=== PATIENT | male | born 1945 | race Caucasian/White ===

== ENCOUNTER 2017-11-02 14:38 | Inpatient (IN) | payer MEDICARE, OTHER ==
[~2017-11-02] VITALS: Ht 190.5 cm; Wt 106.6 kg
[~2017-11-02 14:38] MED LIST: ASPI325T70 PO; CLOP75TA PO; Hydrocodone/Acetaminophen PO; LOVA20TA2 PO; METO-269 PO; OMEG300C PO; RANI300C PO; SOTA80TA20 PO
[2017-11-02] MEDS ORDERED: IV NORMAL SALINE 1000ML BAG 1,000 ML IV ONE (15:30)
[2017-11-02] MEDS ORDERED: ONDANSETRON PF 4 MG/2 ML VIAL. IV ONE (15:45)
[2017-11-02] MEDS ORDERED: fentaNYL PF VIAL 100 MCG/2 ML VIAL IV ONE (15:45)
[2017-11-02] MEDS ORDERED: CONTRAST GIVEN MC PRN (15:45)
[2017-11-02] MEDS ORDERED: IOHEXOL 300 MG/ML 100ML VIAL. IV ONE (16:15)
--- NOTE | 2017-11-02 16:19 | PHYS DOC ---
Past Medical History Past Medical History: CAD, Cancer, GERD, High Cholesterol, Hypertension, Other Additional Past Medical Histor: LYMPHOMA, SITIS INVERSUS Past Surgical History: Cancer Surgery, Coronary Bypass Surgery, Pacemaker Additional Past Surgical Histo: HEART CATH (SEVERAL) STENTS X'S 3, VENTERAL HERNIA, Alcohol Use: None Drug Use: None Adult General Chief Complaint Chief Complaint: ABDOMINAL PAIN HPI HPI Patient is a 72 year old M who presents with abdominal pain with history of small bowel obstruction. Patient had multiple surgeries by Dr. Clayton and has a previous history of small bowel obstructions secondary to adhesions. Patient states that this morning he developed abdominal pain with nausea and vomiting and has not had a bowel movement in over 2 days. Patient complains of abdominal pain mostly in the upper quadrants. Patient denies any fevers. Patient states he has been sweating more this morning. Patient denies any chest pain. Patient no other complaints. Review of Systems Review of Systems GEN: Denies fevers, chills, sweats HEENT: Denies blurred vision, sore throat CV: Denies chest pain RESP: Denies shortness of air, cough GI: Abdominal pain with nausea NEURO: Denies confusion, dizziness MSK: Denies weakness, joint pain/swelling All other systems were reviewed and found to be within normal limits, except as documented in this note. Current Medications Current Medications Current Medications Medications (Trade) Dose Ordered Sig/Rosemary Start Time Stop Time Status Last Admin Dose Admin Fentanyl Citrate (Fentanyl 2ml Vial) 50 mcg PRN Q1HR PRN 11/02/17 18:45 11/03/17 18:44 Info (Do NOT chart on this entry -- for MONITORING) 1 each PRN DAILY PRN 11/02/17 15:45 11/04/17 15:44 Iohexol (Omnipaque 300 Mg/ml) 75 ml 1X ONCE 11/02/17 16:15 11/02/17 16:16 DC Ondansetron HCl (Zofran) 4 mg PRN Q8HRS PRN 11/02/17 18:45 11/03/17 18:44 Sodium Chloride 1,000 ml @ 125 mls/hr Q8H 11/02/17 18:32 11/03/17 18:31 Allergies Allergies Allergies Coded Allergies Type Severity Reaction Last Updated Verified meperidine HCl Allergy Intermediate 08/01/14 Yes Physical Exam Physical Exam GEN.: Mild distress. Alert and oriented. HEENT: Head is normocephalic, atraumatic NECK: Supple. LUNGS: CTAB. HEART: RRR, S1, S2 present. Peripheral pulses intact ABDOMEN: Soft, generalized abdominal tenderness, no rebound tenderness, no abdominal distention. Hypoactive bowel sounds in all 4 quadrants EXTREMITIES: Without any cyanosis. NEUROLOGIC: Normal speech, normal tone PSYCHIATRIC: Normal affect, normal mood. SKIN: No ulcerations Current Patient Data Vital Signs Vital Signs Date Time Temp Pulse Resp B/P (MAP) Pulse Ox O2 Delivery O2 Flow Rate FiO2 11/02/17 17:45 59 159/94 (115) Room Air 11/02/17 17:20 96 11/02/17 16:45 15 11/02/17 14:40 97.6 97.6 Lab Values Laboratory Tests Test 11/02/17 16:16 11/02/17 16:19 11/02/17 17:45 White Blood Count 13.7 x10^3/uL (4.0-11.0) H Red Blood Count 5.63 x10^6/uL (4.30-5.70) Hemoglobin 16.9 g/dL (13.0-17.5) Hematocrit 51.9 % (39.0-53.0) Mean Corpuscular Volume 92 fL (79-100) Mean Corpuscular Hemoglobin 30 pg (25-35) Mean Corpuscular Hemoglobin Concent 33 g/dL (31-37) Red Cell Distribution Width 14.0 % (11.5-14.5) Platelet Count 143 x10^3/uL (140-400) Neutrophils (%) (Auto) 84 % (31-73) H Lymphocytes (%) (Auto) 8 % (24-48) L Monocytes (%) (Auto) 7 % (0-9) Eosinophils (%) (Auto) 1 % (0-3) Basophils (%) (Auto) 1 % (0-3) Neutrophils # (Auto) 11.6 x10^3uL (1.8-7.7) H Lymphocytes # (Auto) 1.1 x10^3/uL (1.0-4.8) Monocytes # (Auto) 0.9 x10^3/uL (0.0-1.1) Eosinophils # (Auto) 0.1 x10^3/uL (0.0-0.7) Basophils # (Auto) 0.1 x10^3/uL (0.0-0.2) Sodium Level 141 mmol/L (136-145) Potassium Level 5.1 mmol/L (3.5-5.1) Chloride Level 103 mmol/L (98-107) Carbon Dioxide Level 27 mmol/L (21-32) Anion Gap 11 (6-14) Blood Urea Nitrogen 23 mg/dL (8-26) Creatinine 1.6 mg/dL (0.7-1.3) H Estimated GFR (Cockcroft-Gault) 42.5 BUN/Creatinine Ratio 14 (6-20) Glucose Level 117 mg/dL (70-99) H Calcium Level 8.7 mg/dL (8.5-10.1) Total Bilirubin 0.7 mg/dL (0.2-1.0) Aspartate Amino Transferase (AST) 25 U/L (15-37) Alanine Aminotransferase (ALT) 25 U/L (16-63) Alkaline Phosphatase 59 U/L (46-116) Total Protein 7.9 g/dL (6.4-8.2) Albumin 4.0 g/dL (3.4-5.0) Albumin/Globulin Ratio 1.0 (1.0-1.7) Lipase 158 U/L (73-393) Lactic Acid Level 1.2 mmol/L (0.4-2.0) Urine Collection Type Unknown Urine Color Yellow Urine Clarity Clear Urine pH 6.0 Urine Specific [place] 1.025 Urine Protein Negative mg/dL (NEG-TRACE) Urine Glucose (UA) Negative mg/dL (NEG) Urine Ketones (Stick) Trace mg/dL (NEG) Urine Blood Negative (NEG) Urine Nitrite Negative (NEG) Urine Bilirubin Negative (NEG) Urine Urobilinogen Dipstick 0.2 mg/dL (0.2 mg/dL) Urine Leukocyte Esterase Negative (NEG) Urine RBC 0 /HPF (0-2) Urine WBC 0 /HPF (0-4) Urine Squamous Epithelial Cells Few /LPF Urine Bacteria 0 /HPF (0-FEW) Urine Mucus Mod /LPF Laboratory Tests 11/02/17 16:16 Laboratory Tests 11/02/17 16:16 EKG EKG [] Radiology/Procedures Radiology/Procedures CT: Impression: 1. Overall findings are concerning for small bowel obstruction with transition of the caliber in the left abdomen. There is mild nonorganized fluid adjacent to the loops of small bowel. 2. There is cholelithiasis. 3. 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 4. There are a couple of small fat-containing ventral hernias, no bowel.[] Course & Med Decision Making Course & Med Decision Making Pertinent Labs and Imaging studies reviewed. (See chart for details) ED course: Patient was seen and examined emergency room abdominal workup was ordered along with a CT scan of abdomen and pelvis Patient was updated on CT findings for an acute small bowel obstruction and plan to admit for further evaluation and management 1820: Discussed CC/HP/PMH with Dr. Monge and recommends admit to surgery on consult NG tube was attempted to be placed by ER nurse however was unsuccessful and patient has refused to continue trying MDM: After reviewing the chart, CC/HPI/PMH, physical exam, [lab results], [ radiological results], I believe the patient has an acute small bowel obstruction needing admission to the hospital for further evaluation and management. [] Dragon Disclaimer Dragon Disclaimer This electronic medical record was generated, in whole or in part, using a voice recognition dictation system. Departure Departure Impression: Primary Impression: SBO (small bowel obstruction) Disposition: ADMITTED INPATIENT Admitting Physician: Other (Dr. Monge) Condition: STABLE Referrals: SUSAN BEAN Jr, MD (PCP) KAJAL HOLT DO Nov 02, 2017 16:19
[2017-11-02 16:27] LABS: BASO # 0.1 x10^3/uL (0.0-0.2); BASO % 1 % (0-3); EOS % 1 % (0-3); HEMATOCRIT 51.9 % (39.0-53.0); HEMOGLOBIN 16.9 g/dL (13.0-17.5); LYMPH # 1.1 x10^3/uL (1.0-4.8); LYMPH % 8 % (24-48); MEAN CORPUSCULAR HEMOGLOBIN 30 pg (25-35); MEAN CORPUSCULAR HGB CONC 33 g/dL (31-37); MEAN CORPUSCULAR VOLUME 92 fL (79-100); MONO % 7 % (0-9); NEUT % 84 % (31-73); PLATELET COUNT 143 x10^3/uL (140-400); RED BLOOD COUNT 5.63 x10^6/uL (4.30-5.70); WHITE BLOOD COUNT 13.7 x10^3/uL (4.0-11.0)
[2017-11-02 16:40] LABS: CALCIUM 8.7 mg/dL (8.5-10.1); CREATININE 1.6 mg/dL (0.7-1.3); GFR 42.5; POTASSIUM 5.1 mmol/L (3.5-5.1)
[2017-11-02 16:46] LABS: TOTAL BILIRUBIN 0.7 mg/dL (0.2-1.0); TOTAL PROTEIN 7.9 g/dL (6.4-8.2)
--- NOTE | 2017-11-02 17:22 | RAD ---
CT Abdomen and Pelvis without contrast History: Abdominal pain Technique: Noncontrast CT imaging was performed of the abdomen and pelvis. Multiplanar images are reviewed.: One or more of the following individualized dose reduction techniques were utilized for this examination: 1. Automated exposure control 2. Adjustment of the mA and/or kV according to patient size 3. Use of iterative reconstruction technique. Comparison: July 06, 2016 Findings: There is again sinus inversus of the abdomen. There is again mild dilatation of the infrarenal abdominal aorta up to 3.3 cm. There is no abnormality limited visualized lung bases. There is likely sinus inversus of heart is seen previously. There is no hydronephrosis. There is no new obvious focal abnormality of the pancreas, spleen, liver. There is cholelithiasis. Accurate evaluation of bowel is somewhat limited without oral contrast. However there is small bowel dilatation with some fecalization and probable small bowel thickening such as in the pelvis. There are air-fluid levels present. Maximal caliber is on the order of 3.6 cm. The colon is not dilated. There is suggestion of a transition point of the caliber of the small bowel in the left abdomen near suture. No free air is identified. No focal drainable fluid collection is identified. There is some hazy density of the mesentery adjacent to the distended loops of small bowel, minimal nonorganized fluid. There is more advanced degenerative disc disease L4-5 and L5-S1 with spondylosis at the same levels. There is small fat-containing right ventral hernia at, no bowel. There is another small fat-containing hernia to the left of the midline anteriorly. Impression: 1. Overall findings are concerning for small bowel obstruction with transition of the caliber in the left abdomen. There is mild nonorganized fluid adjacent to the loops of small bowel. 2. There is cholelithiasis. 3. 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 4. There are a couple of small fat-containing ventral hernias, no bowel. Electronically signed by: Gilberto Goldberg MD (11/02/2017 5:19 PM) [id number]
[2017-11-02 17:54] LABS: BILIRUBIN,URINE NEGATIVE (NEG); GLUCOSE,URINE NEGATIVE (NEG); NITRITE,URINE NEGATIVE (NEG); PROTEIN,URINE NEGATIVE (NEG-TRACE); UROBILINOGEN,URINE 0.2 mg/dL (0.2 mg/dL)
[2017-11-02 18:09] LABS: BACTERIA,URINE 0 /HPF (0-FEW); RBC,URINE 0 /HPF (0-2); SQUAMOUS EPITHELIAL CELL,UR FEW /LPF; WBC,URINE 0 /HPF (0-4)
[2017-11-02] MEDS: IV NORMAL SALINE 1000ML BAG 1,000 ML IV SCH (18:32)
[2017-11-02] MEDS ORDERED: fentaNYL PF VIAL 100 MCG/2 ML VIAL IV PRN (18:45)
[2017-11-02] MEDS ORDERED: ONDANSETRON PF 4 MG/2 ML VIAL. IV PRN (18:45)
[2017-11-02 20:34] VITALS: BP 140/85
[2017-11-02] MEDS ORDERED: FAMOTIDINE 20 MG/2 ML VIAL IVP SCH (21:30)
[2017-11-02] MEDS: FAMOTIDINE 20 MG/2 ML VIAL IVP SCH (21:35)
[2017-11-02] MEDS ORDERED: MORPHINE SULFATE 2 MG/ML DISP.SYRIN. IV PRN (22:00)
[2017-11-02] MEDS ORDERED: LABETALOL 20 MG/4 ML DISP.SYRIN. IVP SCH (22:15)
--- NOTE | 2017-11-02 22:29 | HP ---
ADMIT DATE: 11/02/2017 CHIEF COMPLAINT: Abdominal pain. HISTORY OF PRESENT ILLNESS: The patient is a 72-year-old gentleman with significant abdominal surgery history, including retroperitoneal lymph node resection as well as multiple ventral hernias with resultant adhesions and recurrent SBOs. The patient relates he woke up this morning with acute abdominal pain kind of in the right lower quadrant, although feels pain all over. Pain is sharp, cramping, severe, got worse and worse. He did have vomiting x 1. Denies any bowel movements; his most recent was actually 36 hours ago and scant. He denies any fevers, chills, any chest pain or other symptoms. In the Emergency Room, a CT was positive for small-bowel obstruction with transition of the caliber in the left abdomen. Also noted cholelithiasis and situs inversus known in him. PAST MEDICAL HISTORY: Lymphoma, in remission; CAD, status post CABG as well as multiple stents; hypertension; hypercholesterolemia; status post pacemaker placement and status post ventral hernia repair x 3. FAMILY HISTORY: Positive for CAD. SOCIAL HISTORY: He lives with his family. Quit smoking in 1984. No alcohol or drug use. ALLERGIES: As stated back, MEPERIDINE. MEDICATIONS: MAR reconciled with home medications. REVIEW OF SYSTEMS: Positive as per the HPI. Rest of organ system review is essentially negative by questioning. PHYSICAL EXAMINATION: VITAL SIGNS: Show a blood pressure of 140/85, heart rate of 72 and respiratory rate at 18. He is afebrile. GENERAL: This is a well-nourished 72-year-old gentleman, alert and oriented, in no acute distress. HEENT: Shows no scleral icterus. NECK: Supple. LUNGS: Fairly clear. HEART: Has regular rate and rhythm. ABDOMEN: Mildly distended, decreased bowel sounds, soft. Minimal tenderness to palpation in right lower quadrant. EXTREMITIES: Show no edema. SKIN: Warm, soft and dry without any rash. LABORATORY DATA: CBC with a WBC of 13.7, hemoglobin 16.9 and platelets of 143,000. Chemistries with a BUN and creatinine of 23 and 1.6, normal electrolytes. Of note, creatinine is his baseline. LFTs within normal limits. Albumin at 4.0. Urine without any signs of infections. RADIOGRAPHIC IMAGING: CT of the abdomen as per HPI. ASSESSMENT AND PLAN: The patient is a 72-year-old gentleman presenting with recurrent small-bowel obstruction. He had vomited about 8 hours prior to being seen by myself. No further episodes since arriving in the Emergency Room. NG tube placement was unsuccessful, and given his minimal symptoms, we will omit tube for now. He will remain n.p.o. He has been started on IV fluids, pain medications include morphine. He will be started on Reglan. I suspect that he has a partial bowel obstruction, which hopefully will resolve on its own. We will continue to monitor. His surgeon, Dr. Clayton, will be notified. He does have significant heart history. We will have to hold p.o. meds for the time being. We will switch him to beta corie IV while n.p.o. He will be placed on heparin subcutaneously starting in the morning for prophylaxis and H2 blockers IV as well. BERNADETTE KIRK MD DR: UR/nts JOB#: [id number] / [id number] SUNDEEP
[2017-11-02] MEDS: METOCLOPRAMIDE HCL 10 MG/2 ML VIAL. IV SCH (22:32)
[2017-11-02 23:00] VITALS: BP 156/81
[2017-11-03] MEDS: IV NORMAL SALINE 1000ML BAG 1,000 ML IV SCH ×2 (02:32→11:58)
[2017-11-03 03:00] VITALS: BP 113/73
[2017-11-03] MEDS: METOCLOPRAMIDE HCL 10 MG/2 ML VIAL. IV SCH ×3 (05:33→21:28)
[2017-11-03 05:48] LABS: BASO # 0.1 x10^3/uL (0.0-0.2); BASO % 1 % (0-3); EOS % 1 % (0-3); HEMOGLOBIN 13.8 g/dL (13.0-17.5); LYMPH # 2.1 x10^3/uL (1.0-4.8); LYMPH % 21 % (24-48); MEAN CORPUSCULAR HEMOGLOBIN 30 pg (25-35); MEAN CORPUSCULAR HGB CONC 33 g/dL (31-37); MEAN CORPUSCULAR VOLUME 91 fL (79-100); MONO % 13 % (0-9); NEUT % 64 % (31-73); PLATELET COUNT 130 x10^3/uL (140-400); RED BLOOD COUNT 4.62 x10^6/uL (4.30-5.70); WHITE BLOOD COUNT 10.1 x10^3/uL (4.0-11.0)
[2017-11-03 06:23] LABS: CALCIUM 7.7 mg/dL (8.5-10.1); CREATININE 1.5 mg/dL (0.7-1.3); GFR 45.7; POTASSIUM 4.3 mmol/L (3.5-5.1)
[2017-11-03 07:00] VITALS: BP 124/71
[2017-11-03] MEDS: FAMOTIDINE 20 MG/2 ML VIAL IVP SCH ×2 (08:38→21:28)
[2017-11-03 10:00] VITALS: BP 125/75
[2017-11-03] MEDS ORDERED: SALIVA STIMULANT AGENT 44ML SPRAY BOTTLE. PO PRN (10:00)
--- NOTE | 2017-11-03 10:08 | PDOC ---
PROGRESS NOTES Chief Complaint Chief Complaint nausea and vomiting acute abdominal pain CAD History of Present Illness History of Present Illness has been NPO, hold plavix and sotalol, need to restart soon, passing gas, Gen surg eval pending, will try to restart today cont IV fluid start ice chips, biotene, try to ambulate Vitals Vitals Vital Signs Date Time Temp Pulse Resp B/P (MAP) Pulse Ox O2 Delivery O2 Flow Rate FiO2 11/03/17 08:00 Room Air 11/03/17 07:00 97.9 65 18 124/71 (88) 95 97.9 Physical Exam General: Alert, Oriented X3, Cooperative Heart: Regular rate Lungs: Clear Abdomen: Normal bowel sounds Extremities: No clubbing, No cyanosis Skin: No breakdown Labs LABS Laboratory Tests Test 11/02/17 16:16 11/02/17 16:19 11/02/17 17:45 11/03/17 05:30 White Blood Count 13.7 x10^3/uL (4.0-11.0) 10.1 x10^3/uL (4.0-11.0) Red Blood Count 5.63 x10^6/uL (4.30-5.70) 4.62 x10^6/uL (4.30-5.70) Hemoglobin 16.9 g/dL (13.0-17.5) 13.8 g/dL (13.0-17.5) Hematocrit 51.9 % (39.0-53.0) 42.0 % (39.0-53.0) Mean Corpuscular Volume 92 fL (79-100) 91 fL (79-100) Mean Corpuscular Hemoglobin 30 pg (25-35) 30 pg (25-35) Mean Corpuscular Hemoglobin Concent 33 g/dL (31-37) 33 g/dL (31-37) Red Cell Distribution Width 14.0 % (11.5-14.5) 14.0 % (11.5-14.5) Platelet Count 143 x10^3/uL (140-400) 130 x10^3/uL (140-400) Neutrophils (%) (Auto) 84 % (31-73) 64 % (31-73) Lymphocytes (%) (Auto) 8 % (24-48) 21 % (24-48) Monocytes (%) (Auto) 7 % (0-9) 13 % (0-9) Eosinophils (%) (Auto) 1 % (0-3) 1 % (0-3) Basophils (%) (Auto) 1 % (0-3) 1 % (0-3) Neutrophils # (Auto) 11.6 x10^3uL (1.8-7.7) 6.5 x10^3uL (1.8-7.7) Lymphocytes # (Auto) 1.1 x10^3/uL (1.0-4.8) 2.1 x10^3/uL (1.0-4.8) Monocytes # (Auto) 0.9 x10^3/uL (0.0-1.1) 1.3 x10^3/uL (0.0-1.1) Eosinophils # (Auto) 0.1 x10^3/uL (0.0-0.7) 0.1 x10^3/uL (0.0-0.7) Basophils # (Auto) 0.1 x10^3/uL (0.0-0.2) 0.1 x10^3/uL (0.0-0.2) Sodium Level 141 mmol/L (136-145) 140 mmol/L (136-145) Potassium Level 5.1 mmol/L (3.5-5.1) 4.3 mmol/L (3.5-5.1) Chloride Level 103 mmol/L (98-107) 106 mmol/L (98-107) Carbon Dioxide Level 27 mmol/L (21-32) 25 mmol/L (21-32) Anion Gap 11 (6-14) 9 (6-14) Blood Urea Nitrogen 23 mg/dL (8-26) 21 mg/dL (8-26) Creatinine 1.6 mg/dL (0.7-1.3) 1.5 mg/dL (0.7-1.3) Estimated GFR (Cockcroft-Gault) 42.5 45.7 BUN/Creatinine Ratio 14 (6-20) Glucose Level 117 mg/dL (70-99) 99 mg/dL (70-99) Calcium Level 8.7 mg/dL (8.5-10.1) 7.7 mg/dL (8.5-10.1) Total Bilirubin 0.7 mg/dL (0.2-1.0) Aspartate Amino Transf (AST/SGOT) 25 U/L (15-37) Alanine Aminotransferase (ALT/SGPT) 25 U/L (16-63) Alkaline Phosphatase 59 U/L (46-116) Total Protein 7.9 g/dL (6.4-8.2) Albumin 4.0 g/dL (3.4-5.0) Albumin/Globulin Ratio 1.0 (1.0-1.7) Lipase 158 U/L (73-393) Lactic Acid Level 1.2 mmol/L (0.4-2.0) Urine Collection Type Unknown Urine Color Yellow Urine Clarity Clear Urine pH 6.0 Urine Specific [place] 1.025 Urine Protein Negative mg/dL (NEG-TRACE) Urine Glucose (UA) Negative mg/dL (NEG) Urine Ketones (Stick) Trace mg/dL (NEG) Urine Blood Negative (NEG) Urine Nitrite Negative (NEG) Urine Bilirubin Negative (NEG) Urine Urobilinogen Dipstick 0.2 mg/dL (0.2 mg/dL) Urine Leukocyte Esterase Negative (NEG) Urine RBC 0 /HPF (0-2) Urine WBC 0 /HPF (0-4) Urine Squamous Epithelial Cells Few /LPF Urine Bacteria 0 /HPF (0-FEW) Urine Mucus Mod /LPF Review of Systems Review of Systems abd pain some nausea Assessment and Plan Assessmemt and Plan Problems Medical Problems: (1) SBO (small bowel obstruction) Status: Acute Problems: Comment Review of Relevant I have reviewed the following items mukul (where applicable) has been applied. Labs Laboratory Tests Test 11/02/17 16:16 11/02/17 16:19 11/02/17 17:45 11/03/17 05:30 White Blood Count 13.7 x10^3/uL (4.0-11.0) 10.1 x10^3/uL (4.0-11.0) Red Blood Count 5.63 x10^6/uL (4.30-5.70) 4.62 x10^6/uL (4.30-5.70) Hemoglobin 16.9 g/dL (13.0-17.5) 13.8 g/dL (13.0-17.5) Hematocrit 51.9 % (39.0-53.0) 42.0 % (39.0-53.0) Mean Corpuscular Volume 92 fL (79-100) 91 fL (79-100) Mean Corpuscular Hemoglobin 30 pg (25-35) 30 pg (25-35) Mean Corpuscular Hemoglobin Concent 33 g/dL (31-37) 33 g/dL (31-37) Red Cell Distribution Width 14.0 % (11.5-14.5) 14.0 % (11.5-14.5) Platelet Count 143 x10^3/uL (140-400) 130 x10^3/uL (140-400) Neutrophils (%) (Auto) 84 % (31-73) 64 % (31-73) Lymphocytes (%) (Auto) 8 % (24-48) 21 % (24-48) Monocytes (%) (Auto) 7 % (0-9) 13 % (0-9) Eosinophils (%) (Auto) 1 % (0-3) 1 % (0-3) Basophils (%) (Auto) 1 % (0-3) 1 % (0-3) Neutrophils # (Auto) 11.6 x10^3uL (1.8-7.7) 6.5 x10^3uL (1.8-7.7) Lymphocytes # (Auto) 1.1 x10^3/uL (1.0-4.8) 2.1 x10^3/uL (1.0-4.8) Monocytes # (Auto) 0.9 x10^3/uL (0.0-1.1) 1.3 x10^3/uL (0.0-1.1) Eosinophils # (Auto) 0.1 x10^3/uL (0.0-0.7) 0.1 x10^3/uL (0.0-0.7) Basophils # (Auto) 0.1 x10^3/uL (0.0-0.2) 0.1 x10^3/uL (0.0-0.2) Sodium Level 141 mmol/L (136-145) 140 mmol/L (136-145) Potassium Level 5.1 mmol/L (3.5-5.1) 4.3 mmol/L (3.5-5.1) Chloride Level 103 mmol/L (98-107) 106 mmol/L (98-107) Carbon Dioxide Level 27 mmol/L (21-32) 25 mmol/L (21-32) Anion Gap 11 (6-14) 9 (6-14) Blood Urea Nitrogen 23 mg/dL (8-26) 21 mg/dL (8-26) Creatinine 1.6 mg/dL (0.7-1.3) 1.5 mg/dL (0.7-1.3) Estimated GFR (Cockcroft-Gault) 42.5 45.7 BUN/Creatinine Ratio 14 (6-20) Glucose Level 117 mg/dL (70-99) 99 mg/dL (70-99) Calcium Level 8.7 mg/dL (8.5-10.1) 7.7 mg/dL (8.5-10.1) Total Bilirubin 0.7 mg/dL (0.2-1.0) Aspartate Amino Transf (AST/SGOT) 25 U/L (15-37) Alanine Aminotransferase (ALT/SGPT) 25 U/L (16-63) Alkaline Phosphatase 59 U/L (46-116) Total Protein 7.9 g/dL (6.4-8.2) Albumin 4.0 g/dL (3.4-5.0) Albumin/Globulin Ratio 1.0 (1.0-1.7) Lipase 158 U/L (73-393) Lactic Acid Level 1.2 mmol/L (0.4-2.0) Urine Collection Type Unknown Urine Color Yellow Urine Clarity Clear Urine pH 6.0 Urine Specific [place] 1.025 Urine Protein Negative mg/dL (NEG-TRACE) Urine Glucose (UA) Negative mg/dL (NEG) Urine Ketones (Stick) Trace mg/dL (NEG) Urine Blood Negative (NEG) Urine Nitrite Negative (NEG) Urine Bilirubin Negative (NEG) Urine Urobilinogen Dipstick 0.2 mg/dL (0.2 mg/dL) Urine Leukocyte Esterase Negative (NEG) Urine RBC 0 /HPF (0-2) Urine WBC 0 /HPF (0-4) Urine Squamous Epithelial Cells Few /LPF Urine Bacteria 0 /HPF (0-FEW) Urine Mucus Mod /LPF Laboratory Tests Test 11/02/17 16:16 11/02/17 16:19 11/02/17 17:45 11/03/17 05:30 White Blood Count 13.7 x10^3/uL (4.0-11.0) 10.1 x10^3/uL (4.0-11.0) Red Blood Count 5.63 x10^6/uL (4.30-5.70) 4.62 x10^6/uL (4.30-5.70) Hemoglobin 16.9 g/dL (13.0-17.5) 13.8 g/dL (13.0-17.5) Hematocrit 51.9 % (39.0-53.0) 42.0 % (39.0-53.0) Mean Corpuscular Volume 92 fL (79-100) 91 fL (79-100) Mean Corpuscular Hemoglobin 30 pg (25-35) 30 pg (25-35) Mean Corpuscular Hemoglobin Concent 33 g/dL (31-37) 33 g/dL (31-37) Red Cell Distribution Width 14.0 % (11.5-14.5) 14.0 % (11.5-14.5) Platelet Count 143 x10^3/uL (140-400) 130 x10^3/uL (140-400) Neutrophils (%) (Auto) 84 % (31-73) 64 % (31-73) Lymphocytes (%) (Auto) 8 % (24-48) 21 % (24-48) Monocytes (%) (Auto) 7 % (0-9) 13 % (0-9) Eosinophils (%) (Auto) 1 % (0-3) 1 % (0-3) Basophils (%) (Auto) 1 % (0-3) 1 % (0-3) Neutrophils # (Auto) 11.6 x10^3uL (1.8-7.7) 6.5 x10^3uL (1.8-7.7) Lymphocytes # (Auto) 1.1 x10^3/uL (1.0-4.8) 2.1 x10^3/uL (1.0-4.8) Monocytes # (Auto) 0.9 x10^3/uL (0.0-1.1) 1.3 x10^3/uL (0.0-1.1) Eosinophils # (Auto) 0.1 x10^3/uL (0.0-0.7) 0.1 x10^3/uL (0.0-0.7) Basophils # (Auto) 0.1 x10^3/uL (0.0-0.2) 0.1 x10^3/uL (0.0-0.2) Sodium Level 141 mmol/L (136-145) 140 mmol/L (136-145) Potassium Level 5.1 mmol/L (3.5-5.1) 4.3 mmol/L (3.5-5.1) Chloride Level 103 mmol/L (98-107) 106 mmol/L (98-107) Carbon Dioxide Level 27 mmol/L (21-32) 25 mmol/L (21-32) Anion Gap 11 (6-14) 9 (6-14) Blood Urea Nitrogen 23 mg/dL (8-26) 21 mg/dL (8-26) Creatinine 1.6 mg/dL (0.7-1.3) 1.5 mg/dL (0.7-1.3) Estimated GFR (Cockcroft-Gault) 42.5 45.7 BUN/Creatinine Ratio 14 (6-20) Glucose Level 117 mg/dL (70-99) 99 mg/dL (70-99) Calcium Level 8.7 mg/dL (8.5-10.1) 7.7 mg/dL (8.5-10.1) Total Bilirubin 0.7 mg/dL (0.2-1.0) Aspartate Amino Transf (AST/SGOT) 25 U/L (15-37) Alanine Aminotransferase (ALT/SGPT) 25 U/L (16-63) Alkaline Phosphatase 59 U/L (46-116) Total Protein 7.9 g/dL (6.4-8.2) Albumin 4.0 g/dL (3.4-5.0) Albumin/Globulin Ratio 1.0 (1.0-1.7) Lipase 158 U/L (73-393) Lactic Acid Level 1.2 mmol/L (0.4-2.0) Urine Collection Type Unknown Urine Color Yellow Urine Clarity Clear Urine pH 6.0 Urine Specific [place] 1.025 Urine Protein Negative mg/dL (NEG-TRACE) Urine Glucose (UA) Negative mg/dL (NEG) Urine Ketones (Stick) Trace mg/dL (NEG) Urine Blood Negative (NEG) Urine Nitrite Negative (NEG) Urine Bilirubin Negative (NEG) Urine Urobilinogen Dipstick 0.2 mg/dL (0.2 mg/dL) Urine Leukocyte Esterase Negative (NEG) Urine RBC 0 /HPF (0-2) Urine WBC 0 /HPF (0-4) Urine Squamous Epithelial Cells Few /LPF Urine Bacteria 0 /HPF (0-FEW) Urine Mucus Mod /LPF Medications Current Medications Sodium Chloride 1,000 ml @ 1,000 mls/hr 1X ONCE IV Last administered on 11/02 16:23; Start 11/02/17 at 15:30; Stop 11/02/17 at 16:29; Status DC Ondansetron HCl (Zofran) 4 mg 1X ONCE IV Last administered on 11/02/17 16:24 ; Start 11/02/17 at 15:45; Stop 11/02/17 at 15:46; Status DC Fentanyl Citrate (Fentanyl 2ml Vial) 50 mcg 1X ONCE IV Last administered on 16:25; Start 11/02/17 at 15:45; Stop 11/02/17 at 15:46; Status DC Iohexol (Omnipaque 300 Mg/ml) 75 ml 1X ONCE IV ; Start 11/02/17 at 16:15; Stop 11/02/17 at 16:16; Status DC Info (Do NOT chart on this entry -- for MONITORING) 1 each PRN DAILY PRN MC SEE COMMENTS; Start 11/02/17 at 15:45; Stop 11/04/17 at 15:44 Ondansetron HCl (Zofran) 4 mg PRN Q8HRS PRN IV NAUSEA/VOMITING; Start at 18:45; Stop 11/03/17 at 18:44 Fentanyl Citrate (Fentanyl 2ml Vial) 50 mcg PRN Q1HR PRN IV PAIN; Start at 18:45; Stop 11/02/17 at 22:01; Status DC Sodium Chloride 1,000 ml @ 125 mls/hr Q8H IV Last administered on 11/03/17 02:32; Start 11/02/17 at 18:32; Stop 11/03/17 at 18:31 Famotidine (Pepcid Vial) 20 mg BID IVP Last administered on 11/03/17 08:38; Start 11/02/17 at 22:00 Famotidine (Pepcid Vial) 20 mg BID IVP ; Start 11/02/17 at 21:30; Status UNV Morphine Sulfate 2 mg PRN Q2HR PRN IV PAIN; Start 11/02/17 at 22:00 Metoclopramide HCl (Reglan Vial) 10 mg Q8HRS IV Last administered on 05:33; Start 11/02/17 at 22:30 Labetalol HCl (Normodyne) 20 mg PRN Q2HR IVP ; Start 11/02/17 at 22:15 Active Scripts Active Reported Fish Oil ([place]-3 Fatty Acids) 300 Mg Capsule 1,000 Mg PO BID Betapace (Sotalol Hcl) 80 Mg Tablet 80 Mg PO BID Lovastatin 20 Mg Tablet 20 Mg PO HS Ranitidine Hcl 300 Mg Capsule 300 Mg PO BID Clopidogrel (Clopidogrel Bisulfate) 75 Mg Tablet 75 Mg PO DAILY Aspirin Buffered 325 Mg Tab (Aspirin/Calcium Carbonate/Mag) 325 Mg Tablet 325 Mg PO DAILY Vitals/I & O Vital Sign - Last 24 Hours 11/02/17 11/02/17 11/02/17 11/02/17 14:40 15:45 16:25 16:45 Temp 97.6 97.6 Pulse 85 60 60 Resp 16 16 20 15 B/P (MAP) 153/71 (98) 166/92 (116) 127/77 (94) Pulse Ox 95 95 96 O2 Delivery Room Air Room Air Room Air Room Air 11/02/17 11/02/17 11/02/17 11/02/17 17:20 17:45 18:45 20:34 Temp 97.2 97.2 Pulse 59 82 72 Resp 18 B/P (MAP) 159/94 (115) 166/96 (119) 140/85 (103) Pulse Ox 96 95 97 O2 Delivery Room Air Room Air Room Air Room Air 11/02/17 11/02/17 11/03/17 11/03/17 21:07 23:00 03:00 07:00 Temp 98.1 98.8 97.9 98.1 98.8 97.9 Pulse 71 75 65 Resp 17 18 18 B/P (MAP) 156/81 (106) 113/73 (86) 124/71 (88) Pulse Ox 95 93 95 O2 Delivery Room Air Room Air Room Air Room Air 11/03/17 08:00 O2 Delivery Room Air Intake and Output 11/02/17 11/02/17 11/03/17 15:00 23:00 07:00 Intake Total 1000 ml Output Total 0 ml Balance 1000 ml GELACIO ONTIVEROS MD Nov 03, 2017 10:08
[2017-11-03] MEDS: SOTALOL 80 MG TABLET. PO SCH ×2 (11:00→21:29)
--- NOTE | 2017-11-03 11:40 | PDOC2 ---
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 Similar to his previous obstruction symptoms. Currently improved, having flatus, no stool, still some pain lower abdomen Past Medical History Cardiovascular: CAD, HTN, SC, Hyperlipidemia GI: GERD, Other Heme/Onc: Cancer Musculoskeletal: Osteoarthritis Past Surgical History Past Surgical History: Appendectomy, Cholecystectomy, CABG, Hernia Repair Family History Family History: Heart Disease, Hypertension Social History ALCOHOL: none Drugs: None Current Problem List Problem List Problems Medical Problems: (1) SBO (small bowel obstruction) Status: Acute Current Medications Current Medications Current Medications Sodium Chloride 1,000 ml @ 1,000 mls/hr 1X ONCE IV Last administered on 11/02 16:23; Start 11/02/17 at 15:30; Stop 11/02/17 at 16:29; Status DC Ondansetron HCl (Zofran) 4 mg 1X ONCE IV Last administered on 11/02/17 16:24 ; Start 11/02/17 at 15:45; Stop 11/02/17 at 15:46; Status DC Fentanyl Citrate (Fentanyl 2ml Vial) 50 mcg 1X ONCE IV Last administered on 16:25; Start 11/02/17 at 15:45; Stop 11/02/17 at 15:46; Status DC Iohexol (Omnipaque 300 Mg/ml) 75 ml 1X ONCE IV ; Start 11/02/17 at 16:15; Stop 11/02/17 at 16:16; Status DC Info (Do NOT chart on this entry -- for MONITORING) 1 each PRN DAILY PRN MC SEE COMMENTS; Start 11/02/17 at 15:45; Stop 11/04/17 at 15:44 Ondansetron HCl (Zofran) 4 mg PRN Q8HRS PRN IV NAUSEA/VOMITING; Start at 18:45; Stop 11/03/17 at 18:44 Fentanyl Citrate (Fentanyl 2ml Vial) 50 mcg PRN Q1HR PRN IV PAIN; Start at 18:45; Stop 11/02/17 at 22:01; Status DC Sodium Chloride 1,000 ml @ 125 mls/hr Q8H IV Last administered on 11/03/17 02:32; Start 11/02/17 at 18:32; Stop 11/03/17 at 18:31 Famotidine (Pepcid Vial) 20 mg BID IVP Last administered on 11/03/17 08:38; Start 11/02/17 at 22:00 Famotidine (Pepcid Vial) 20 mg BID IVP ; Start 11/02/17 at 21:30; Status UNV Morphine Sulfate 2 mg PRN Q2HR PRN IV PAIN; Start 11/02/17 at 22:00 Metoclopramide HCl (Reglan Vial) 10 mg Q8HRS IV Last administered on 05:33; Start 11/02/17 at 22:30 Labetalol HCl (Normodyne) 20 mg PRN Q2HR IVP ; Start 11/02/17 at 22:15 Saliva Substitute (Biotene Moisturizing Mouth) 2 spray PRN Q15MIN PRN PO DRY MOUTH; Start 11/03/17 at 10:00 Clopidogrel Bisulfate (Plavix) 75 mg DAILY PO ; Start 11/03/17 at 11:00 Sotalol HCl (Betapace) 80 mg BID PO ; Start 11/03/17 at 11:00 Aspirin (Ecotrin) 325 mg DAILYWBKFT PO ; Start 11/03/17 at 11:00 Atorvastatin Calcium (Lipitor) 5 mg QHS PO ; Start 11/03/17 at 21:00 Fish Oil (Fish Oil) 1,000 mg BID PO ; Start 11/03/17 at 11:00 Non-Formulary Medication 300 mg BID PO ; Start 11/03/17 at 21:00; Status UNV Active Scripts Active Reported Fish Oil ([place]-3 Fatty Acids) 300 Mg Capsule 1,000 Mg PO BID Betapace (Sotalol Hcl) 80 Mg Tablet 80 Mg PO BID Lovastatin 20 Mg Tablet 20 Mg PO HS Ranitidine Hcl 300 Mg Capsule 300 Mg PO BID Clopidogrel (Clopidogrel Bisulfate) 75 Mg Tablet 75 Mg PO DAILY Aspirin Buffered 325 Mg Tab (Aspirin/Calcium Carbonate/Mag) 325 Mg Tablet 325 Mg PO DAILY Allergies Allergies: Coded Allergies: meperidine HCl (Verified Allergy, Intermediate, 08/01/14) HYPOTENSION ROS General: No: Chills, Other (fevers) PSYCHOLOGICAL ROS: No: Anxiety, Depression Eyes: No Blurry vision, No Double vision HEENT: No: Heacaches, Sore Throat Hematological and Lymphatic: YES: Bleeding Problems, No: Blood Clots Respiratory: No: Cough, Shortness of breath Cardiovascular: No Chest Pain, No Palpitations Gastrointestinal: Yes Other (see hpi) Genitourinary: No Dysuria, No Hematuria Musculoskeletal: No Joint Pain, No Muscle Pain Neurological: No Impaired Coord/balance, No Numbness/Tingling Skin: No Pruritus, No Rash Physical Exam General: Alert, Oriented X3, Cooperative, No acute distress HEENT: PERRLA, Mucous membr. moist/pink Lungs: Clear to auscultation, Normal air movement Heart: Regular rate, Normal S1, Normal S2, No murmurs Abdomen: Soft, Other (mildly tender across lower abdomen, ND) Extremities: No clubbing, No cyanosis Skin: No rashes, No breakdown Neuro: Normal gait, Normal speech Psych/Mental Status: Mental status NL, Mood NL MUSCULOSKELETAL: No deformity, No swelling Vitals VITALS Vital Signs Date Time Temp Pulse Resp B/P (MAP) Pulse Ox O2 Delivery O2 Flow Rate FiO2 11/03/17 08:00 Room Air 11/03/17 07:00 97.9 65 18 124/71 (88) 95 97.9 Labs Labs Laboratory Tests Test 11/02/17 16:16 11/02/17 16:19 11/02/17 17:45 11/03/17 05:30 White Blood Count 13.7 x10^3/uL (4.0-11.0) 10.1 x10^3/uL (4.0-11.0) Red Blood Count 5.63 x10^6/uL (4.30-5.70) 4.62 x10^6/uL (4.30-5.70) Hemoglobin 16.9 g/dL (13.0-17.5) 13.8 g/dL (13.0-17.5) Hematocrit 51.9 % (39.0-53.0) 42.0 % (39.0-53.0) Mean Corpuscular Volume 92 fL (79-100) 91 fL (79-100) Mean Corpuscular Hemoglobin 30 pg (25-35) 30 pg (25-35) Mean Corpuscular Hemoglobin Concent 33 g/dL (31-37) 33 g/dL (31-37) Red Cell Distribution Width 14.0 % (11.5-14.5) 14.0 % (11.5-14.5) Platelet Count 143 x10^3/uL (140-400) 130 x10^3/uL (140-400) Neutrophils (%) (Auto) 84 % (31-73) 64 % (31-73) Lymphocytes (%) (Auto) 8 % (24-48) 21 % (24-48) Monocytes (%) (Auto) 7 % (0-9) 13 % (0-9) Eosinophils (%) (Auto) 1 % (0-3) 1 % (0-3) Basophils (%) (Auto) 1 % (0-3) 1 % (0-3) Neutrophils # (Auto) 11.6 x10^3uL (1.8-7.7) 6.5 x10^3uL (1.8-7.7) Lymphocytes # (Auto) 1.1 x10^3/uL (1.0-4.8) 2.1 x10^3/uL (1.0-4.8) Monocytes # (Auto) 0.9 x10^3/uL (0.0-1.1) 1.3 x10^3/uL (0.0-1.1) Eosinophils # (Auto) 0.1 x10^3/uL (0.0-0.7) 0.1 x10^3/uL (0.0-0.7) Basophils # (Auto) 0.1 x10^3/uL (0.0-0.2) 0.1 x10^3/uL (0.0-0.2) Sodium Level 141 mmol/L (136-145) 140 mmol/L (136-145) Potassium Level 5.1 mmol/L (3.5-5.1) 4.3 mmol/L (3.5-5.1) Chloride Level 103 mmol/L (98-107) 106 mmol/L (98-107) Carbon Dioxide Level 27 mmol/L (21-32) 25 mmol/L (21-32) Anion Gap 11 (6-14) 9 (6-14) Blood Urea Nitrogen 23 mg/dL (8-26) 21 mg/dL (8-26) Creatinine 1.6 mg/dL (0.7-1.3) 1.5 mg/dL (0.7-1.3) Estimated GFR (Cockcroft-Gault) 42.5 45.7 BUN/Creatinine Ratio 14 (6-20) Glucose Level 117 mg/dL (70-99) 99 mg/dL (70-99) Calcium Level 8.7 mg/dL (8.5-10.1) 7.7 mg/dL (8.5-10.1) Total Bilirubin 0.7 mg/dL (0.2-1.0) Aspartate Amino Transf (AST/SGOT) 25 U/L (15-37) Alanine Aminotransferase (ALT/SGPT) 25 U/L (16-63) Alkaline Phosphatase 59 U/L (46-116) Total Protein 7.9 g/dL (6.4-8.2) Albumin 4.0 g/dL (3.4-5.0) Albumin/Globulin Ratio 1.0 (1.0-1.7) Lipase 158 U/L (73-393) Lactic Acid Level 1.2 mmol/L (0.4-2.0) Urine Collection Type Unknown Urine Color Yellow Urine Clarity Clear Urine pH 6.0 Urine Specific [place] 1.025 Urine Protein Negative mg/dL (NEG-TRACE) Urine Glucose (UA) Negative mg/dL (NEG) Urine Ketones (Stick) Trace mg/dL (NEG) Urine Blood Negative (NEG) Urine Nitrite Negative (NEG) Urine Bilirubin Negative (NEG) Urine Urobilinogen Dipstick 0.2 mg/dL (0.2 mg/dL) Urine Leukocyte Esterase Negative (NEG) Urine RBC 0 /HPF (0-2) Urine WBC 0 /HPF (0-4) Urine Squamous Epithelial Cells Few /LPF Urine Bacteria 0 /HPF (0-FEW) Urine Mucus Mod /LPF Laboratory Tests Test 11/02/17 16:16 11/02/17 16:19 11/02/17 17:45 11/03/17 05:30 White Blood Count 13.7 x10^3/uL (4.0-11.0) 10.1 x10^3/uL (4.0-11.0) Red Blood Count 5.63 x10^6/uL (4.30-5.70) 4.62 x10^6/uL (4.30-5.70) Hemoglobin 16.9 g/dL (13.0-17.5) 13.8 g/dL (13.0-17.5) Hematocrit 51.9 % (39.0-53.0) 42.0 % (39.0-53.0) Mean Corpuscular Volume 92 fL (79-100) 91 fL (79-100) Mean Corpuscular Hemoglobin 30 pg (25-35) 30 pg (25-35) Mean Corpuscular Hemoglobin Concent 33 g/dL (31-37) 33 g/dL (31-37) Red Cell Distribution Width 14.0 % (11.5-14.5) 14.0 % (11.5-14.5) Platelet Count 143 x10^3/uL (140-400) 130 x10^3/uL (140-400) Neutrophils (%) (Auto) 84 % (31-73) 64 % (31-73) Lymphocytes (%) (Auto) 8 % (24-48) 21 % (24-48) Monocytes (%) (Auto) 7 % (0-9) 13 % (0-9) Eosinophils (%) (Auto) 1 % (0-3) 1 % (0-3) Basophils (%) (Auto) 1 % (0-3) 1 % (0-3) Neutrophils # (Auto) 11.6 x10^3uL (1.8-7.7) 6.5 x10^3uL (1.8-7.7) Lymphocytes # (Auto) 1.1 x10^3/uL (1.0-4.8) 2.1 x10^3/uL (1.0-4.8) Monocytes # (Auto) 0.9 x10^3/uL (0.0-1.1) 1.3 x10^3/uL (0.0-1.1) Eosinophils # (Auto) 0.1 x10^3/uL (0.0-0.7) 0.1 x10^3/uL (0.0-0.7) Basophils # (Auto) 0.1 x10^3/uL (0.0-0.2) 0.1 x10^3/uL (0.0-0.2) Sodium Level 141 mmol/L (136-145) 140 mmol/L (136-145) Potassium Level 5.1 mmol/L (3.5-5.1) 4.3 mmol/L (3.5-5.1) Chloride Level 103 mmol/L (98-107) 106 mmol/L (98-107) Carbon Dioxide Level 27 mmol/L (21-32) 25 mmol/L (21-32) Anion Gap 11 (6-14) 9 (6-14) Blood Urea Nitrogen 23 mg/dL (8-26) 21 mg/dL (8-26) Creatinine 1.6 mg/dL (0.7-1.3) 1.5 mg/dL (0.7-1.3) Estimated GFR (Cockcroft-Gault) 42.5 45.7 BUN/Creatinine Ratio 14 (6-20) Glucose Level 117 mg/dL (70-99) 99 mg/dL (70-99) Calcium Level 8.7 mg/dL (8.5-10.1) 7.7 mg/dL (8.5-10.1) Total Bilirubin 0.7 mg/dL (0.2-1.0) Aspartate Amino Transf (AST/SGOT) 25 U/L (15-37) Alanine Aminotransferase (ALT/SGPT) 25 U/L (16-63) Alkaline Phosphatase 59 U/L (46-116) Total Protein 7.9 g/dL (6.4-8.2) Albumin 4.0 g/dL (3.4-5.0) Albumin/Globulin Ratio 1.0 (1.0-1.7) Lipase 158 U/L (73-393) Lactic Acid Level 1.2 mmol/L (0.4-2.0) Urine Collection Type Unknown Urine Color Yellow Urine Clarity Clear Urine pH 6.0 Urine Specific [place] 1.025 Urine Protein Negative mg/dL (NEG-TRACE) Urine Glucose (UA) Negative mg/dL (NEG) Urine Ketones (Stick) Trace mg/dL (NEG) Urine Blood Negative (NEG) Urine Nitrite Negative (NEG) Urine Bilirubin Negative (NEG) Urine Urobilinogen Dipstick 0.2 mg/dL (0.2 mg/dL) Urine Leukocyte Esterase Negative (NEG) Urine RBC 0 /HPF (0-2) Urine WBC 0 /HPF (0-4) Urine Squamous Epithelial Cells Few /LPF Urine Bacteria 0 /HPF (0-FEW) Urine Mucus Mod /LPF Assessment/Plan Assessment/Plan sbo, clinically improved will check FU films Films still showing possible obstructive process to SB--NPO, observation AARTI JOSEPH MD 11/03/17 1823: CONSULT Allergies Allergies: Coded Allergies: meperidine HCl (Verified Allergy, Intermediate, 08/01/14) HYPOTENSION Assessment/Plan Assessment/Plan Pt seen and examined. Agree with Abeba's note Pt reports feeling better now, and has passed some stool abd soft, ND, NTTP, small VIH will try clears and reeval in AM Thanks for consult! SEEMA KHOURY APRN Nov 03, 2017 11:39 AARTI JOSEPH MD Nov 03, 2017 18:23
--- NOTE | 2017-11-03 12:05 | RAD ---
Indication: Abdominal pain and vomiting. Technique: Abdominal series with PA chest radiograph contains 4 images. Comparison is a CT from yesterday and upright and supine abdomen from July 08, 2016. 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 Median sternotomy wires are noted. The lungs are clear. There is no free air. There is a dilated small bowel loop in the right upper quadrant measuring up to 5 cm in diameter. There is some gas in the colon. Impression: Dilated small bowel loop in the right upper quadrant concerning for partial obstruction. There is some gas within the colon. Degree of distention appears similar to yesterday's CT.
[2017-11-03 15:00] VITALS: BP 136/88
[2017-11-03] MEDS: ASPIRIN ENTERIC COATED 325 MG TABLET.DR. PO SCH (18:34)
[2017-11-03] MEDS: OMEGA-3 FATTY ACIDS/FISH OIL 1,000 MG CAPSULE. PO SCH ×2 (18:34→21:28)
[2017-11-03] MEDS: CLOPIDOGREL BISULFATE 75 MG TABLET PO SCH (18:34)
[2017-11-03 19:00] VITALS: BP 112/62
[2017-11-03] MEDS ORDERED: ATORVASTATIN CALCIUM 10 MG TABLET. PO SCH (21:00)
[2017-11-03] MEDS ORDERED: NON FORMULARY ITEM (Ranitidine Hcl 300 MG) PO SCH (21:00)
[2017-11-03 23:00] VITALS: BP 114/53
[2017-11-04 03:00] VITALS: BP 118/69
[2017-11-04] MEDS: METOCLOPRAMIDE HCL 10 MG/2 ML VIAL. IV SCH (06:15)
[2017-11-04 07:00] VITALS: BP 138/77
[2017-11-04] MEDS: SOTALOL 80 MG TABLET. PO SCH (08:30)
[2017-11-04] MEDS: FAMOTIDINE 20 MG/2 ML VIAL IVP SCH (08:30)
[2017-11-04] MEDS: ASPIRIN ENTERIC COATED 325 MG TABLET.DR. PO SCH (08:30)
[2017-11-04] MEDS: OMEGA-3 FATTY ACIDS/FISH OIL 1,000 MG CAPSULE. PO SCH (08:30)
[2017-11-04] MEDS: CLOPIDOGREL BISULFATE 75 MG TABLET PO SCH (08:30)
[2017-11-04 11:00] VITALS: BP 134/74
--- NOTE | 2017-11-04 12:06 | PDOC ---
SURGICAL PROGRESS NOTE Subjective Pt notes extensive stooling last night, feels well Vital Signs Vital Signs Date Time Temp Pulse Resp B/P (MAP) Pulse Ox O2 Delivery O2 Flow Rate FiO2 11/04/17 11:00 98.0 62 18 134/74 (94) 96 Room Air 98.0 I&O Intake and Output 11/04/17 06:59 Intake Total 1000 ml Output Total 200 ml Balance 800 ml Intake Oral 0 ml IV Total 1000 ml Output Urine Total 200 ml # Voids 4 # Bowel Movements 3 General: Alert, Oriented X3, Cooperative, No acute distress Abdomen: Soft, No tenderness Labs Laboratory Tests Test 11/02/17 16:16 11/02/17 16:19 11/02/17 17:45 11/03/17 05:30 White Blood Count 13.7 x10^3/uL (4.0-11.0) 10.1 x10^3/uL (4.0-11.0) Red Blood Count 5.63 x10^6/uL (4.30-5.70) 4.62 x10^6/uL (4.30-5.70) Hemoglobin 16.9 g/dL (13.0-17.5) 13.8 g/dL (13.0-17.5) Hematocrit 51.9 % (39.0-53.0) 42.0 % (39.0-53.0) Mean Corpuscular Volume 92 fL (79-100) 91 fL (79-100) Mean Corpuscular Hemoglobin 30 pg (25-35) 30 pg (25-35) Mean Corpuscular Hemoglobin Concent 33 g/dL (31-37) 33 g/dL (31-37) Red Cell Distribution Width 14.0 % (11.5-14.5) 14.0 % (11.5-14.5) Platelet Count 143 x10^3/uL (140-400) 130 x10^3/uL (140-400) Neutrophils (%) (Auto) 84 % (31-73) 64 % (31-73) Lymphocytes (%) (Auto) 8 % (24-48) 21 % (24-48) Monocytes (%) (Auto) 7 % (0-9) 13 % (0-9) Eosinophils (%) (Auto) 1 % (0-3) 1 % (0-3) Basophils (%) (Auto) 1 % (0-3) 1 % (0-3) Neutrophils # (Auto) 11.6 x10^3uL (1.8-7.7) 6.5 x10^3uL (1.8-7.7) Lymphocytes # (Auto) 1.1 x10^3/uL (1.0-4.8) 2.1 x10^3/uL (1.0-4.8) Monocytes # (Auto) 0.9 x10^3/uL (0.0-1.1) 1.3 x10^3/uL (0.0-1.1) Eosinophils # (Auto) 0.1 x10^3/uL (0.0-0.7) 0.1 x10^3/uL (0.0-0.7) Basophils # (Auto) 0.1 x10^3/uL (0.0-0.2) 0.1 x10^3/uL (0.0-0.2) Sodium Level 141 mmol/L (136-145) 140 mmol/L (136-145) Potassium Level 5.1 mmol/L (3.5-5.1) 4.3 mmol/L (3.5-5.1) Chloride Level 103 mmol/L (98-107) 106 mmol/L (98-107) Carbon Dioxide Level 27 mmol/L (21-32) 25 mmol/L (21-32) Anion Gap 11 (6-14) 9 (6-14) Blood Urea Nitrogen 23 mg/dL (8-26) 21 mg/dL (8-26) Creatinine 1.6 mg/dL (0.7-1.3) 1.5 mg/dL (0.7-1.3) Estimated GFR (Cockcroft-Gault) 42.5 45.7 BUN/Creatinine Ratio 14 (6-20) Glucose Level 117 mg/dL (70-99) 99 mg/dL (70-99) Calcium Level 8.7 mg/dL (8.5-10.1) 7.7 mg/dL (8.5-10.1) Total Bilirubin 0.7 mg/dL (0.2-1.0) Aspartate Amino Transf (AST/SGOT) 25 U/L (15-37) Alanine Aminotransferase (ALT/SGPT) 25 U/L (16-63) Alkaline Phosphatase 59 U/L (46-116) Total Protein 7.9 g/dL (6.4-8.2) Albumin 4.0 g/dL (3.4-5.0) Albumin/Globulin Ratio 1.0 (1.0-1.7) Lipase 158 U/L (73-393) Lactic Acid Level 1.2 mmol/L (0.4-2.0) Urine Collection Type Unknown Urine Color Yellow Urine Clarity Clear Urine pH 6.0 Urine Specific [place] 1.025 Urine Protein Negative mg/dL (NEG-TRACE) Urine Glucose (UA) Negative mg/dL (NEG) Urine Ketones (Stick) Trace mg/dL (NEG) Urine Blood Negative (NEG) Urine Nitrite Negative (NEG) Urine Bilirubin Negative (NEG) Urine Urobilinogen Dipstick 0.2 mg/dL (0.2 mg/dL) Urine Leukocyte Esterase Negative (NEG) Urine RBC 0 /HPF (0-2) Urine WBC 0 /HPF (0-4) Urine Squamous Epithelial Cells Few /LPF Urine Bacteria 0 /HPF (0-FEW) Urine Mucus Mod /LPF Problem List Problems Medical Problems: (1) SBO (small bowel obstruction) Status: Acute Assessment/Plan SBO, now resolved ADAT OK to d/c home f/u PRN Problems: AARTI JOSEPH MD Nov 04, 2017 12:06
--- NOTE | 2017-11-04 16:00 | PDOC3 ---
Discharge Summary Visit Information Date of Admission: Nov 02, 2017 Date of Discharge: Nov 04, 2017 Admitting Diagnosis: acute abdominal pain Final Diagnosis nausea and vomiting acute abdominal pain partial small bowel obstruction CAD Vitals Problems Medical Problems: (1) SBO (small bowel obstruction) Status: Acute Brief Hospital Course Allergies Allergies Coded Allergies Type Severity Reaction Last Updated Verified meperidine HCl Allergy Intermediate 08/01/14 Yes Vital Signs Vital Signs Date Time Temp Pulse Resp B/P (MAP) Pulse Ox O2 Delivery O2 Flow Rate FiO2 11/04/17 11:00 98.0 62 18 134/74 (94) 96 Room Air 98.0 Lab Results Laboratory Tests Test 11/02/17 16:16 11/02/17 16:19 11/02/17 17:45 11/03/17 05:30 White Blood Count 13.7 x10^3/uL (4.0-11.0) 10.1 x10^3/uL (4.0-11.0) Red Blood Count 5.63 x10^6/uL (4.30-5.70) 4.62 x10^6/uL (4.30-5.70) Hemoglobin 16.9 g/dL (13.0-17.5) 13.8 g/dL (13.0-17.5) Hematocrit 51.9 % (39.0-53.0) 42.0 % (39.0-53.0) Mean Corpuscular Volume 92 fL (79-100) 91 fL (79-100) Mean Corpuscular Hemoglobin 30 pg (25-35) 30 pg (25-35) Mean Corpuscular Hemoglobin Concent 33 g/dL (31-37) 33 g/dL (31-37) Red Cell Distribution Width 14.0 % (11.5-14.5) 14.0 % (11.5-14.5) Platelet Count 143 x10^3/uL (140-400) 130 x10^3/uL (140-400) Neutrophils (%) (Auto) 84 % (31-73) 64 % (31-73) Lymphocytes (%) (Auto) 8 % (24-48) 21 % (24-48) Monocytes (%) (Auto) 7 % (0-9) 13 % (0-9) Eosinophils (%) (Auto) 1 % (0-3) 1 % (0-3) Basophils (%) (Auto) 1 % (0-3) 1 % (0-3) Neutrophils # (Auto) 11.6 x10^3uL (1.8-7.7) 6.5 x10^3uL (1.8-7.7) Lymphocytes # (Auto) 1.1 x10^3/uL (1.0-4.8) 2.1 x10^3/uL (1.0-4.8) Monocytes # (Auto) 0.9 x10^3/uL (0.0-1.1) 1.3 x10^3/uL (0.0-1.1) Eosinophils # (Auto) 0.1 x10^3/uL (0.0-0.7) 0.1 x10^3/uL (0.0-0.7) Basophils # (Auto) 0.1 x10^3/uL (0.0-0.2) 0.1 x10^3/uL (0.0-0.2) Sodium Level 141 mmol/L (136-145) 140 mmol/L (136-145) Potassium Level 5.1 mmol/L (3.5-5.1) 4.3 mmol/L (3.5-5.1) Chloride Level 103 mmol/L (98-107) 106 mmol/L (98-107) Carbon Dioxide Level 27 mmol/L (21-32) 25 mmol/L (21-32) Anion Gap 11 (6-14) 9 (6-14) Blood Urea Nitrogen 23 mg/dL (8-26) 21 mg/dL (8-26) Creatinine 1.6 mg/dL (0.7-1.3) 1.5 mg/dL (0.7-1.3) Estimated GFR (Cockcroft-Gault) 42.5 45.7 BUN/Creatinine Ratio 14 (6-20) Glucose Level 117 mg/dL (70-99) 99 mg/dL (70-99) Calcium Level 8.7 mg/dL (8.5-10.1) 7.7 mg/dL (8.5-10.1) Total Bilirubin 0.7 mg/dL (0.2-1.0) Aspartate Amino Transf (AST/SGOT) 25 U/L (15-37) Alanine Aminotransferase (ALT/SGPT) 25 U/L (16-63) Alkaline Phosphatase 59 U/L (46-116) Total Protein 7.9 g/dL (6.4-8.2) Albumin 4.0 g/dL (3.4-5.0) Albumin/Globulin Ratio 1.0 (1.0-1.7) Lipase 158 U/L (73-393) Lactic Acid Level 1.2 mmol/L (0.4-2.0) Urine Collection Type Unknown Urine Color Yellow Urine Clarity Clear Urine pH 6.0 Urine Specific [place] 1.025 Urine Protein Negative mg/dL (NEG-TRACE) Urine Glucose (UA) Negative mg/dL (NEG) Urine Ketones (Stick) Trace mg/dL (NEG) Urine Blood Negative (NEG) Urine Nitrite Negative (NEG) Urine Bilirubin Negative (NEG) Urine Urobilinogen Dipstick 0.2 mg/dL (0.2 mg/dL) Urine Leukocyte Esterase Negative (NEG) Urine RBC 0 /HPF (0-2) Urine WBC 0 /HPF (0-4) Urine Squamous Epithelial Cells Few /LPF Urine Bacteria 0 /HPF (0-FEW) Urine Mucus Mod /LPF Brief Hospital Course Mr. Mccullough is a 72 old male, admit iwth acute abd pain, p SBO, has been NPO, held plavix and sotalol, IV fluid - then was passing gas, diet advanced, no pain, DC home gen surg consult, Dr. Clayton Discharge Information Condition at Discharge: Improved Follow Up: Weeks Disposition/Orders: D/C to Home Scheduled Aspirin/Calcium Carbonate/Mag (Aspirin Buffered 325 Mg Tab), 325 MG PO DAILY, ( Reported) Clopidogrel Bisulfate (Clopidogrel), 75 MG PO DAILY, (Reported) Lovastatin (Lovastatin), 20 MG PO HS, (Reported) Golden-3 Fatty Acids (Fish Oil), 1,000 MG PO BID, (Reported) Ranitidine Hcl (Ranitidine Hcl), 300 MG PO BID, (Reported) Sotalol Hcl (Betapace), 80 MG PO BID, (Reported) Patient Instructions Patient Instructions > 30 min face to face and GELACIO Fulton MD Nov 04, 2017 16:00
== END 2017-11-04 12:10 | disposition home or self-care (01) | DRG 389 ==
LOC: ER 14:38 → 5 NORTH 18:20
PROVIDERS: ADMIT Internal Medicine Hematology & Oncology; ATTEND Internal Medicine Hematology & Oncology
DX: K56.51 Intestinal adhesions [bands], with partial obstruction (principal); Q89.3 Situs inversus; E78.00 Pure hypercholesterolemia, unspecified; E78.5 Hyperlipidemia, unspecified; I10 Essential (primary) hypertension; I25.10 Atherosclerotic heart disease of native coronary artery without angina pectoris; K21.9 Gastro-esophageal reflux disease without esophagitis; K43.9 Ventral hernia without obstruction or gangrene; M19.90 Unspecified osteoarthritis, unspecified site; K80.20 Calculus of gallbladder without cholecystitis without obstruction; Z82.49 Family history of ischemic heart disease and other diseases of the circulatory system; Z85.72 Personal history of non-Hodgkin lymphomas; Z87.891 Personal history of nicotine dependence; Z95.1 Presence of aortocoronary bypass graft; Z95.0 Presence of cardiac pacemaker; I25.2 Old myocardial infarction; Z90.49 Acquired absence of other specified parts of digestive tract
CPT/HCPCS: 36415; 74022; 74176; 80048; 80053; 81001; 83605; 83690; 85025; 96361; 96374; 96375; J2405; J2765; J3010; J7030; S0028; 99285-25

== ENCOUNTER 2017-12-19 06:28 | Inpatient (IN) | payer OTHER ==
[2017-12-19] MEDS ORDERED: LIDOCAINE 1% PF 2 ML VIAL. ID (07:00)
[2017-12-19] MEDS ORDERED: PROCHLORPERAZINE 10 MG/2 ML VIAL. IV (07:00)
[2017-12-19] MEDS: IV RINGERS,LACTATED 1000ML 1,000 ML IV ×4 (07:16→22:25)
[2017-12-19] MEDS ORDERED: ROCURONIUM 50 MG/5 ML VIAL. (07:38)
[2017-12-19] MEDS ORDERED: fentaNYL PF VIAL 100 MCG/2 ML VIAL ×2 (07:38→08:26)
[2017-12-19] MEDS ORDERED: GLYCOPYRROLATE 1 MG/5 ML VIAL. (07:38)
[2017-12-19] MEDS ORDERED: MIDAZOLAM HCL/PF 2 MG/2 ML VIAL. (07:38)
[2017-12-19] MEDS ORDERED: NEOSTIGMINE METHYLSULFATE 5 MG/5 ML SYRINGE. (07:38)
[2017-12-19] MEDS ORDERED: ETOMIDATE 20 MG/10 ML VIAL. IV (07:39)
[2017-12-19] MEDS ORDERED: ONDANSETRON PF 4 MG/2 ML VIAL. (07:39)
[2017-12-19] MEDS ORDERED: DEXAMETHASONE SOD PHOS 20 MG/5 ML VIAL. (07:39)
[2017-12-19] MEDS ORDERED: ePHEDrine PF IN SALINE 50 MG/5 ML DISP.SYRIN IV (08:02)
[2017-12-19] MEDS ORDERED: SEVOFLURANE 61 TO 120 MINUTES. IH (08:13)
[2017-12-19] MEDS: BUPIVACAINE-EPI 0.25%-1:200000 50 ML VIAL. (08:19)
[2017-12-19] MEDS ORDERED: MORPHINE SULFATE 2 MG/ML DISP.SYRIN. IV (10:00)
[2017-12-19] MEDS ORDERED: HYDROcodone/APAP 5/325MG 1 TAB TABLET PO (10:00)
[2017-12-19] MEDS ORDERED: 0.9 % SODIUM CHLORIDE 10 ML DISP.SYRIN. IV (10:00)
[2017-12-19] MEDS ORDERED: MORPHINE SULFATE 2 MG/ML DISP.SYRIN. (10:15)
[2017-12-19] MEDS: MORPHINE SULFATE 2 MG/ML DISP.SYRIN. IV ×2 (10:20→10:48)
[2017-12-19] MEDS ORDERED: HYDROmorphone 2 MG/ML VIAL (10:53)
[2017-12-19] MEDS: HYDROmorphone 2 MG/ML VIAL IV ×2 (10:56→11:18)
[2017-12-19] MEDS: KETOROLAC 30 MG/ML INJ. IV (11:18)
[2017-12-19] MEDS: ONDANSETRON PF 4 MG/2 ML VIAL. IV (19:20)
[2017-12-19] MEDS: DOCUSATE SODIUM 100 MG CAPSULE. PO (22:25)
[2017-12-19] MEDS: ENOXAPARIN 40 MG/0.4 ML SYRINGE. SQ (22:26)
[2017-12-20 04:50] LABS: ADD MAN DIFF? NO
[2017-12-20 05:01] LABS: BASO % 0 % (0-3); EOS % 0 % (0-3); HEMATOCRIT 38.9 % (39.0-53.0); HEMOGLOBIN 12.9 g/dL (13.0-17.5); LYMPH # 1.4 x10^3/uL (1.0-4.8); LYMPH % 13 % (24-48); MEAN CORPUSCULAR HEMOGLOBIN 30 pg (25-35); MEAN CORPUSCULAR HGB CONC 33 g/dL (31-37); MEAN CORPUSCULAR VOLUME 91 fL (79-100); MONO # 1.2 x10^3/uL (0.0-1.1); MONO % 11 % (0-9); NEUT % 75 % (31-73); PLATELET COUNT 117 x10^3/uL (140-400); RED BLOOD COUNT 4.29 x10^6/uL (4.30-5.70); WHITE BLOOD COUNT 10.7 x10^3/uL (4.0-11.0)
[2017-12-20 05:22] LABS: ANION GAP 6 (6-14); BLOOD UREA NITROGEN 28 mg/dL (8-26); CALCIUM 8.1 mg/dL (8.5-10.1); CARBON DIOXIDE 27 mmol/L (21-32); CHLORIDE 105 mmol/L (98-107); CREATININE 1.6 mg/dL (0.7-1.3); GFR 42.5; GLUCOSE 105 mg/dL (70-99); POTASSIUM 4.5 mmol/L (3.5-5.1); SODIUM 138 mmol/L (136-145)
[2017-12-20] MEDS: DOCUSATE SODIUM 100 MG CAPSULE. PO ×2 (12:28→20:19)
[2017-12-20] MEDS: ASPIRIN ENTERIC COATED 325 MG TABLET.DR. PO (12:29)
[2017-12-20] MEDS: FAMOTIDINE 20 MG TABLET. PO ×2 (12:29→20:19)
[2017-12-20] MEDS: OMEGA-3 FATTY ACIDS/FISH OIL 1,000 MG CAPSULE. PO (12:29)
[2017-12-20] MEDS: CLOPIDOGREL BISULFATE 75 MG TABLET PO (12:29)
[2017-12-20] MEDS: SOTALOL 80 MG TABLET. PO ×2 (12:30→20:19)
[2017-12-20] MEDS: ATORVASTATIN CALCIUM 10 MG TABLET. PO (20:18)
[2017-12-20] MEDS: ENOXAPARIN 40 MG/0.4 ML SYRINGE. SQ (20:20)
[2017-12-21] MEDS: FAMOTIDINE 20 MG TABLET. PO (08:36)
[2017-12-21] MEDS: CLOPIDOGREL BISULFATE 75 MG TABLET PO (08:36)
[2017-12-21] MEDS: OMEGA-3 FATTY ACIDS/FISH OIL 1,000 MG CAPSULE. PO (08:36)
[2017-12-21] MEDS: SOTALOL 80 MG TABLET. PO (08:36)
[2017-12-21] MEDS: ASPIRIN ENTERIC COATED 325 MG TABLET.DR. PO (08:36)
[2017-12-21] MEDS: DOCUSATE SODIUM 100 MG CAPSULE. PO (08:36)
== END 2017-12-21 11:45 | disposition home or self-care (01) | DRG 336 ==
LOC: SURG 06:28 → 4 NORTH 11:44
PROC: 0DNE0ZZ Release Large Intestine, Open Approach (ICD-10-PCS; principal; 2017-12-19 07:46)
PROC: 0WQF0ZZ Repair Abdominal Wall, Open Approach (ICD-10-PCS; 2017-12-19 07:46)
PROC: 0WJF4ZZ Inspection of Abdominal Wall, Percutaneous Endoscopic Approach (ICD-10-PCS; 2017-12-19 07:46)
DX: K43.2 Incisional hernia without obstruction or gangrene (principal); K56.52 Intestinal adhesions [bands] with complete obstruction; G21.9 Secondary parkinsonism, unspecified; K56.609 Unspecified intestinal obstruction, unspecified as to partial versus complete obstruction; Z53.31 Laparoscopic surgical procedure converted to open procedure; I25.10 Atherosclerotic heart disease of native coronary artery without angina pectoris; Z87.442 Personal history of urinary calculi; Z82.49 Family history of ischemic heart disease and other diseases of the circulatory system; Z80.9 Family history of malignant neoplasm, unspecified
CPT/HCPCS: 36415; 80048; 85025; J1100; J1170; J1650; J1885; J2250; J2270; J2405; J2710; J3010; J3490; J7030; J7120

== ENCOUNTER 2018-04-01 02:23 | Observation (INO) | payer OTHER ==
[2018-04-01 04:09] LABS: ADD MAN DIFF? NO
[2018-04-01 04:13] LABS: BASO # 0.1 x10^3/uL (0.0-0.2); BASO % 1 % (0-3); EOS # 0.1 x10^3/uL (0.0-0.7); EOS % 2 % (0-3); HEMATOCRIT 40.7 % (39.0-53.0); HEMOGLOBIN 14.2 g/dL (13.0-17.5); LYMPH # 1.2 x10^3/uL (1.0-4.8); LYMPH % 16 % (24-48); MEAN CORPUSCULAR HEMOGLOBIN 31 pg (25-35); MEAN CORPUSCULAR HGB CONC 35 g/dL (31-37); MEAN CORPUSCULAR VOLUME 89 fL (79-100); MONO # 1.1 x10^3/uL (0.0-1.1); MONO % 15 % (0-9); NEUT # 5.1 x10^3uL (1.8-7.7); NEUT % 67 % (31-73); PLATELET COUNT 120 x10^3/uL (140-400); RED BLOOD COUNT 4.57 x10^6/uL (4.30-5.70); RED CELL DISTRIBUTION WIDTH 14.2 % (11.5-14.5); WHITE BLOOD COUNT 7.6 x10^3/uL (4.0-11.0)
[2018-04-01 04:32] LABS: ANION GAP 13 (6-14); BLOOD UREA NITROGEN 24 mg/dL (8-26); BUN/CREATININE RATIO 15 (6-20); CALCIUM 8.2 mg/dL (8.5-10.1); CARBON DIOXIDE 23 mmol/L (21-32); CHLORIDE 104 mmol/L (98-107); CREATININE 1.6 mg/dL (0.7-1.3); GFR 42.5; GLUCOSE 119 mg/dL (70-99); POTASSIUM 4.3 mmol/L (3.5-5.1); SODIUM 140 mmol/L (136-145)
[2018-04-01 04:38] LABS: ALBUMIN 3.7 g/dL (3.4-5.0); ALBUMIN/GLOBULIN RATIO 1.2 (1.0-1.7); ALK PHOS 63 U/L (46-116); ALT (SGPT) 22 U/L (16-63); AST (SGOT) 22 U/L (15-37); LIPASE 151 U/L (73-393); TOTAL BILIRUBIN 0.7 mg/dL (0.2-1.0); TOTAL PROTEIN 6.9 g/dL (6.4-8.2)
[2018-04-01 04:41] LABS: TROPONINI < 0.017 ng/mL (0.000-0.055)
[2018-04-01] MEDS: IV NORMAL SALINE 1000ML BAG 1,000 ML IV ×2 (05:30→14:26)
[2018-04-01] MEDS ORDERED: ONDANSETRON PF 4 MG/2 ML VIAL. IV (05:30)
[2018-04-01] MEDS ORDERED: MORPHINE SULFATE 4 MG/ML DISP.SYRIN. IV (05:30)
[2018-04-02] MEDS: IV NORMAL SALINE 1000ML BAG 1,000 ML IV
[2018-04-02] MEDS: cefTRIAXone IV Push 1 GM VIAL. IVP (11:50)
[2018-04-02] MEDS ORDERED: ONDANSETRON PF 4 MG/2 ML VIAL. IV (22:15)
[2018-04-02] MEDS ORDERED: SOTALOL 80 MG TABLET. PO (22:30)
[2018-04-02] MEDS: SOTALOL 80 MG TABLET. PO (22:32)
[2018-04-02] MEDS: ATORVASTATIN CALCIUM 10 MG TABLET. PO (22:32)
[2018-04-02] MEDS: FAMOTIDINE 20 MG TABLET. PO (22:32)
[2018-04-02] MEDS: HYDROcodone/APAP 5/325MG 1 TAB TABLET PO (22:33)
[2018-04-03 05:30] LABS: ADD MAN DIFF? NO
[2018-04-03 05:34] LABS: BASO % 1 % (0-3); EOS # 0.3 x10^3/uL (0.0-0.7); EOS % 4 % (0-3); HEMATOCRIT 38.5 % (39.0-53.0); HEMOGLOBIN 13.3 g/dL (13.0-17.5); LYMPH # 2.1 x10^3/uL (1.0-4.8); LYMPH % 32 % (24-48); MEAN CORPUSCULAR HEMOGLOBIN 31 pg (25-35); MEAN CORPUSCULAR HGB CONC 35 g/dL (31-37); MEAN CORPUSCULAR VOLUME 89 fL (79-100); MONO % 15 % (0-9); NEUT # 3.2 x10^3uL (1.8-7.7); NEUT % 48 % (31-73); PLATELET COUNT 113 x10^3/uL (140-400); RED BLOOD COUNT 4.32 x10^6/uL (4.30-5.70); RED CELL DISTRIBUTION WIDTH 14.1 % (11.5-14.5); WHITE BLOOD COUNT 6.5 x10^3/uL (4.0-11.0)
[2018-04-03 05:49] LABS: ANION GAP 7 (6-14); BLOOD UREA NITROGEN 16 mg/dL (8-26); CALCIUM 8.4 mg/dL (8.5-10.1); CARBON DIOXIDE 28 mmol/L (21-32); CHLORIDE 106 mmol/L (98-107); CREATININE 1.4 mg/dL (0.7-1.3); GFR 49.5; GLUCOSE 93 mg/dL (70-99); POTASSIUM 4.4 mmol/L (3.5-5.1); SODIUM 141 mmol/L (136-145)
[2018-04-03] MEDS: CLOPIDOGREL BISULFATE 75 MG TABLET PO (09:57)
[2018-04-03] MEDS: ASPIRIN ENTERIC COATED 325 MG TABLET.DR. PO (09:57)
[2018-04-03] MEDS: OMEGA-3 FATTY ACIDS/FISH OIL 1,000 MG CAPSULE. PO (09:58)
[2018-04-03] MEDS: FAMOTIDINE 20 MG TABLET. PO (09:58)
[2018-04-03] MEDS: SOTALOL 80 MG TABLET. PO (09:59)
== END 2018-04-03 12:38 | disposition home or self-care (01) ==
LOC: ER 02:23 → 6 SOUTH 05:30
DX: K56.609 Unspecified intestinal obstruction, unspecified as to partial versus complete obstruction (principal); K21.9 Gastro-esophageal reflux disease without esophagitis; G89.29 Other chronic pain; I10 Essential (primary) hypertension; I25.10 Atherosclerotic heart disease of native coronary artery without angina pectoris; M19.90 Unspecified osteoarthritis, unspecified site; E78.5 Hyperlipidemia, unspecified; Z82.49 Family history of ischemic heart disease and other diseases of the circulatory system; Z86.73 Personal history of transient ischemic attack (TIA), and cerebral infarction without residual deficits; Z95.1 Presence of aortocoronary bypass graft
CPT/HCPCS: 36415; 74018; 74176; 80048; 80053; 83690; 84484; 85025; 93005; 96361; 96374; 99285-25; G0378; G0379; J0696; J7030

== ENCOUNTER 2018-05-07 04:20 | Observation (INO) | payer OTHER ==
[2018-05-07] MEDS: IOHEXOL 300 MG/ML 100ML VIAL. IV (04:45)
[2018-05-07] MEDS ORDERED: CONTRAST GIVEN. MC (04:45)
[2018-05-07 04:49] LABS: ADD MAN DIFF? NO
[2018-05-07 04:52] LABS: BASO # 0.1 x10^3/uL (0.0-0.2); BASO % 1 % (0-3); EOS # 0.3 x10^3/uL (0.0-0.7); EOS % 3 % (0-3); HEMATOCRIT 44.2 % (39.0-53.0); LYMPH # 1.7 x10^3/uL (1.0-4.8); LYMPH % 15 % (24-48); MEAN CORPUSCULAR HEMOGLOBIN 31 pg (25-35); MEAN CORPUSCULAR HGB CONC 34 g/dL (31-37); MEAN CORPUSCULAR VOLUME 90 fL (79-100); MONO # 0.9 x10^3/uL (0.0-1.1); MONO % 9 % (0-9); NEUT % 73 % (31-73); PLATELET COUNT 156 x10^3/uL (140-400); RED BLOOD COUNT 4.89 x10^6/uL (4.30-5.70); RED CELL DISTRIBUTION WIDTH 14.3 % (11.5-14.5); WHITE BLOOD COUNT 10.9 x10^3/uL (4.0-11.0)
[2018-05-07 05:06] LABS: ANION GAP 12 (6-14); BLOOD UREA NITROGEN 27 mg/dL (8-26); BUN/CREATININE RATIO 17 (6-20); CALCIUM 9.4 mg/dL (8.5-10.1); CARBON DIOXIDE 23 mmol/L (21-32); CHLORIDE 102 mmol/L (98-107); CREATININE 1.6 mg/dL (0.7-1.3); GFR 42.5; GLUCOSE 129 mg/dL (70-99); POTASSIUM 4.6 mmol/L (3.5-5.1); SODIUM 137 mmol/L (136-145)
[2018-05-07 05:12] LABS: ALBUMIN 3.9 g/dL (3.4-5.0); ALK PHOS 61 U/L (46-116); ALT (SGPT) 24 U/L (16-63); AST (SGOT) 27 U/L (15-37); LIPASE 224 U/L (73-393); TOTAL BILIRUBIN 0.7 mg/dL (0.2-1.0); TOTAL PROTEIN 7.8 g/dL (6.4-8.2)
[2018-05-07 05:13] LABS: LACTIC ACID 1.1 mmol/L (0.4-2.0)
[2018-05-07 05:15] LABS: TROPONINI < 0.017 ng/mL (0.000-0.055)
[2018-05-07 05:19] LABS: CKMB INDEX 0.6 % (0-4); CKMB MASS 2.4 ng/mL (0.0-3.6); CREATINE KINASE 386 U/L (39-308)
[2018-05-07] MEDS: ONDANSETRON PF 4 MG/2 ML VIAL. IV ×2 (05:22→22:58)
[2018-05-07] MEDS: MORPHINE SULFATE 4 MG/ML DISP.SYRIN. IV/SQ (05:22)
[2018-05-07] MEDS: IV NORMAL SALINE 1000ML BAG 1,000 ML IV (05:23)
[2018-05-07] MEDS ORDERED: fentaNYL PF VIAL 100 MCG/2 ML VIAL IV (09:45)
[2018-05-07 12:10] LABS: BILIRUBIN,URINE NEGATIVE (NEG); CLARITY,URINE CLEAR; COLOR,URINE YELLOW; GLUCOSE,URINE NEGATIVE (NEG); NITRITE,URINE NEGATIVE (NEG); PH,URINE 5.5; PROTEIN,URINE NEGATIVE (NEG-TRACE); UROBILINOGEN,URINE 0.2 mg/dL (0.2 mg/dL)
[2018-05-07 12:21] LABS: HYALINE CASTS, URINE OCCASIONAL /HPF
[2018-05-07 12:22] LABS: BACTERIA,URINE FEW /HPF (0-FEW); RBC,URINE RARE /HPF (0-2); WBC,URINE OCC /HPF (0-4)
[2018-05-07] MEDS: IV DEXTROSE 5%-LACT RINGERS 1,000 ML IV (17:39)
[2018-05-08] MEDS: PANTOPRAZOLE IV PUSH 40 MG VIAL. IVP (08:43)
[2018-05-08] MEDS: IV NORMAL SALINE 1000ML BAG 1,000 ML IV (18:02)
[2018-05-08] MEDS ORDERED: HYDROcodone/APAP 5/325MG 1 TAB TABLET PO (20:00)
[2018-05-08] MEDS: FAMOTIDINE 20 MG TABLET. PO (21:26)
[2018-05-08] MEDS: ATORVASTATIN CALCIUM 10 MG TABLET. PO (21:26)
[2018-05-08] MEDS: SOTALOL 80 MG TABLET. PO (21:29)
[2018-05-09 04:45] LABS: ADD MAN DIFF? NO
[2018-05-09 04:59] LABS: BASO % 1 % (0-3); EOS # 0.3 x10^3/uL (0.0-0.7); EOS % 5 % (0-3); HEMATOCRIT 37.7 % (39.0-53.0); HEMOGLOBIN 12.9 g/dL (13.0-17.5); LYMPH % 34 % (24-48); MEAN CORPUSCULAR HEMOGLOBIN 31 pg (25-35); MEAN CORPUSCULAR HGB CONC 34 g/dL (31-37); MEAN CORPUSCULAR VOLUME 90 fL (79-100); MONO # 0.8 x10^3/uL (0.0-1.1); MONO % 13 % (0-9); NEUT # 2.8 x10^3uL (1.8-7.7); NEUT % 47 % (31-73); PLATELET COUNT 131 x10^3/uL (140-400); RED CELL DISTRIBUTION WIDTH 14.1 % (11.5-14.5); WHITE BLOOD COUNT 5.9 x10^3/uL (4.0-11.0)
[2018-05-09 05:29] LABS: ALBUMIN/GLOBULIN RATIO 0.9 (1.0-1.7); ALK PHOS 48 U/L (46-116); ALT (SGPT) 18 U/L (16-63); ANION GAP 7 (6-14); AST (SGOT) 19 U/L (15-37); BLOOD UREA NITROGEN 15 mg/dL (8-26); BUN/CREATININE RATIO 10 (6-20); CALCIUM 8.3 mg/dL (8.5-10.1); CARBON DIOXIDE 27 mmol/L (21-32); CHLORIDE 106 mmol/L (98-107); CREATININE 1.5 mg/dL (0.7-1.3); GFR 45.7; GLUCOSE 87 mg/dL (70-99); POTASSIUM 4.2 mmol/L (3.5-5.1); SODIUM 140 mmol/L (136-145); TOTAL BILIRUBIN 0.5 mg/dL (0.2-1.0); TOTAL PROTEIN 6.4 g/dL (6.4-8.2)
[2018-05-09] MEDS: CLOPIDOGREL BISULFATE 75 MG TABLET PO (08:02)
[2018-05-09] MEDS: ASPIRIN 325 MG TABLET PO (08:02)
[2018-05-09] MEDS: FAMOTIDINE 20 MG TABLET. PO (08:02)
[2018-05-09] MEDS: OMEGA-3 FATTY ACIDS/FISH OIL 1,000 MG CAPSULE. PO (08:02)
[2018-05-09] MEDS: SOTALOL 80 MG TABLET. PO (08:03)
== END 2018-05-09 14:00 | disposition home or self-care (01) ==
LOC: ER 04:20 → 6 SOUTH 06:50
DX: K56.609 Unspecified intestinal obstruction, unspecified as to partial versus complete obstruction (principal); N17.9 Acute kidney failure, unspecified; I10 Essential (primary) hypertension; K21.9 Gastro-esophageal reflux disease without esophagitis; M19.90 Unspecified osteoarthritis, unspecified site; I25.10 Atherosclerotic heart disease of native coronary artery without angina pectoris; I25.2 Old myocardial infarction; E78.5 Hyperlipidemia, unspecified; E78.00 Pure hypercholesterolemia, unspecified; Z82.49 Family history of ischemic heart disease and other diseases of the circulatory system; Z85.72 Personal history of non-Hodgkin lymphomas; Z95.1 Presence of aortocoronary bypass graft; Z85.9 Personal history of malignant neoplasm, unspecified; Z90.49 Acquired absence of other specified parts of digestive tract; Z95.0 Presence of cardiac pacemaker
CPT/HCPCS: 36415; 74022; 74176; 80053; 81001; 82553; 83605; 83690; 84484; 85025; 93005; 96361; 96372; 96374; 96375; 96376; 97161-GP; 99285-25; C9113; G0378; G0379; J2270; J2405; J7030

== ENCOUNTER 2018-06-29 21:04 | Inpatient (IN) | payer OTHER ==
[2018-06-29] MEDS ORDERED: CONTRAST GIVEN. MC (23:00)
[2018-06-29] MEDS: IOHEXOL 300 MG/ML 100ML VIAL. IV (23:00)
[2018-06-29 23:02] LABS: ADD MAN DIFF? NO
[2018-06-29] MEDS: IV NORMAL SALINE 1000ML BAG 1,000 ML IV (23:06)
[2018-06-29] MEDS: ONDANSETRON PF 4 MG/2 ML VIAL. IV (23:06)
[2018-06-29] MEDS: FAMOTIDINE 20 MG/2 ML VIAL IVP (23:06)
[2018-06-29] MEDS: fentaNYL PF VIAL 100 MCG/2 ML VIAL IV (23:07)
[2018-06-29 23:08] LABS: BASO # 0.1 x10^3/uL (0.0-0.2); BASO % 1 % (0-3); EOS # 0.3 x10^3/uL (0.0-0.7); EOS % 3 % (0-3); HEMATOCRIT 45.3 % (39.0-53.0); HEMOGLOBIN 15.4 g/dL (13.0-17.5); LYMPH # 1.7 x10^3/uL (1.0-4.8); LYMPH % 12 % (24-48); MEAN CORPUSCULAR HEMOGLOBIN 31 pg (25-35); MEAN CORPUSCULAR HGB CONC 34 g/dL (31-37); MEAN CORPUSCULAR VOLUME 90 fL (79-100); MONO # 1.4 x10^3/uL (0.0-1.1); MONO % 10 % (0-9); NEUT # 10.3 x10^3uL (1.8-7.7); NEUT % 74 % (31-73); PLATELET COUNT 171 x10^3/uL (140-400); RED BLOOD COUNT 5.04 x10^6/uL (4.30-5.70); RED CELL DISTRIBUTION WIDTH 13.9 % (11.5-14.5); WHITE BLOOD COUNT 13.8 x10^3/uL (4.0-11.0)
[2018-06-29 23:19] LABS: ANION GAP 11 (6-14); BLOOD UREA NITROGEN 27 mg/dL (8-26); BUN/CREATININE RATIO 14 (6-20); CALCIUM 9.8 mg/dL (8.5-10.1); CARBON DIOXIDE 25 mmol/L (21-32); CHLORIDE 104 mmol/L (98-107); CREATININE 1.9 mg/dL (0.7-1.3); GFR 34.8; GLUCOSE 126 mg/dL (70-99); POTASSIUM 4.9 mmol/L (3.5-5.1); SODIUM 140 mmol/L (136-145)
[2018-06-29 23:26] LABS: ALBUMIN 4.3 g/dL (3.4-5.0); ALBUMIN/GLOBULIN RATIO 1.1 (1.0-1.7); ALK PHOS 65 U/L (46-116); ALT (SGPT) 23 U/L (16-63); AST (SGOT) 26 U/L (15-37); CREATINE KINASE 162 U/L (39-308); LIPASE 277 U/L (73-393); TOTAL BILIRUBIN 0.6 mg/dL (0.2-1.0); TOTAL PROTEIN 8.2 g/dL (6.4-8.2)
[2018-06-30] MEDS: MORPHINE SULFATE 4 MG/ML DISP.SYRIN. IV ×2 (00:21→02:03)
[2018-06-30] MEDS: ONDANSETRON PF 4 MG/2 ML VIAL. IV ×2 (02:02→17:00)
[2018-06-30] MEDS: IV NORMAL SALINE 1000ML BAG 1,000 ML IV ×3 (02:03→20:45)
[2018-06-30] MEDS ORDERED: CONTRAST GIVEN. MC (17:15)
[2018-06-30] MEDS: IOHEXOL 300 MG/ML 100ML VIAL. IV (17:58)
== END 2018-07-01 19:08 | disposition home or self-care (01) | DRG 390 ==
LOC: 6 SOUTH 06-30 01:15 → ER 21:04 → 6 SOUTH 06-30 01:26
DX: K56.51 Intestinal adhesions [bands], with partial obstruction (principal); I25.10 Atherosclerotic heart disease of native coronary artery without angina pectoris; K21.9 Gastro-esophageal reflux disease without esophagitis; M19.90 Unspecified osteoarthritis, unspecified site; E78.00 Pure hypercholesterolemia, unspecified; I10 Essential (primary) hypertension; E78.5 Hyperlipidemia, unspecified; I25.2 Old myocardial infarction; Z85.72 Personal history of non-Hodgkin lymphomas; Z95.5 Presence of coronary angioplasty implant and graft; Z95.1 Presence of aortocoronary bypass graft; Z90.49 Acquired absence of other specified parts of digestive tract; Z88.6 Allergy status to analgesic agent; Z88.2 Allergy status to sulfonamides; Z82.49 Family history of ischemic heart disease and other diseases of the circulatory system
CPT/HCPCS: 36415; 71046; 74022; 74170; 74176; 80053; 82550; 83690; 85025; 93005; 96361; 96374; 96375; 99285; 99285-25; J2270; J2405; J3010; J7030; Q9967; S0028

== ENCOUNTER 2018-09-01 17:44 | Inpatient (IN) | payer OTHER ==
[~2018-09-01] VITALS: Ht 190.5 cm; Wt 102.1 kg
[~2018-09-01 17:44] MED LIST changes: +HYDR-971 PO; +[UNRECOGNIZED DRUG - CODE] PO
[2018-09-01] MEDS ORDERED: fentaNYL PF VIAL 100 MCG/2 ML VIAL ONE (18:17)
[2018-09-01] MEDS ORDERED: fentaNYL PF VIAL 100 MCG/2 ML VIAL IV ONE ×3 (18:30→20:00)
[2018-09-01] MEDS ORDERED: IV NORMAL SALINE 1000ML BAG 1,000 ML IV ONE (18:30)
[2018-09-01 18:33] LABS: BASO # 0.1 x10^3/uL (0.0-0.2); BASO % 1 % (0-3); EOS # 0.2 x10^3/uL (0.0-0.7); EOS % 2 % (0-3); HEMOGLOBIN 15.5 g/dL (13.0-17.5); LYMPH # 1.7 x10^3/uL (1.0-4.8); LYMPH % 15 % (24-48); MEAN CORPUSCULAR HEMOGLOBIN 31 pg (25-35); MEAN CORPUSCULAR HGB CONC 35 g/dL (31-37); MEAN CORPUSCULAR VOLUME 90 fL (79-100); MONO # 1.3 x10^3/uL (0.0-1.1); MONO % 11 % (0-9); NEUT # 8.2 x10^3uL (1.8-7.7); NEUT % 72 % (31-73); PLATELET COUNT 160 x10^3/uL (140-400); RED BLOOD COUNT 5.02 x10^6/uL (4.30-5.70); WHITE BLOOD COUNT 11.4 x10^3/uL (4.0-11.0)
--- NOTE | 2018-09-01 18:33 | PHYS DOC ---
Past Medical History Past Medical History: CAD, Cancer, GERD, High Cholesterol, Hypertension, Other Additional Past Medical Histor: LYMPHOMA, SITIS INVERSUS, BOWEL OBSTRUCTION Past Surgical History: Appendectomy, Cancer Surgery, Coronary Bypass Surgery, Pacemaker Additional Past Surgical Histo: HEART CATH (SEVERAL) STENTS X'S 3, VENTERAL HERNIA, OPEN HEART Alcohol Use: None Drug Use: None Adult General Chief Complaint Chief Complaint: ABDOMINAL PAIN HPI HPI Patient is a 73 year old male who presents with mid abdominal pain. Patient states he developed pain this morning at approximately 10:30 AM. Patient states his pain is similar to his other bowel obstructions. Patient's last meal was at 8:30 this morning and the last time he has happened to drink was a couple coffee with MiraLAX at 3:30. Patient reportedly vomited this up several times and came to the emergency department for further evaluation and management. Patient denies chest pain and has no other acute complaints at this time. Patient most recently admitted for partial small bowel obstruction in June 2018. His history is significant for the following. This is from his surgical consult by Dr Cade on 06/30/2018 "72 yo male with recent history of recurrent SBO episodes- complex surgical history dating back to surgery for lymphoma of Left ureter, then ventral hernia repairs - had SBO episodes last year and had lysis of adhesions and ventral hernia repair in nov. of this year- however in March, April and now, has presented with acute vomiting and abd pain symptoms and xrays findings of SBO- with transition point on CT- but then quick recovery and resolution after hospitalization, IV and NPO- he refuses NGT due to nasal fracture and pain with insertion- this pattern was repeated this week. Hx of negative PET scan in 2014 suggesting resolution of lymphoma. Has screening colonoscopy about 5 years ago- recalls it was negative. denies chronic GI symptoms such as pain, n/v, change in bowels or bleeding." His most recent abdomen pelvis CT scan was June 30, 2018 with the following results: MPRESSION: 1. Situs inversus. 2. Ongoing partial distal small bowel obstruction with a transition zone in the left lower quadrant, most likely due to an adhesion. 3. Minimal free fluid has developed in the abdomen. 4. Cholelithiasis 5. Small distal abdominal aortic aneurysm. 6. Small fat-containing ventral hernia Review of Systems Review of Systems Constitutional: Denies fever or chills [] Eyes: Denies change in visual acuity, redness, or eye pain [] HENT: Denies nasal congestion or sore throat [] Respiratory: Denies cough or shortness of breath [] Cardiovascular: No additional information not addressed in HPI [] GI: Positive for abdominal pain, nausea, vomiting, denies bloody stools or diarrhea [] : Denies dysuria or hematuria [] Musculoskeletal: Denies back pain or joint pain [] Integument: Denies rash or skin lesions [] Neurologic: Denies headache, focal weakness or sensory changes [] Endocrine: Denies polyuria or polydipsia [] All other systems were reviewed and found to be within normal limits, except as documented in this note. Current Medications Current Medications Current Medications Medications (Trade) Dose Ordered Sig/Rosemary Start Time Stop Time Status Last Admin Dose Admin Fentanyl Citrate (Fentanyl 2ml Vial) 25 mcg 1X ONCE 09/01/18 20:00 09/01/18 20:01 Morphine Sulfate (Morphine Sulfate) 8 mg PRN Q2HR PRN 09/01/18 20:00 Ondansetron HCl (Zofran) 4 mg 1X ONCE 09/01/18 20:00 09/01/18 20:01 Sodium Chloride 1,000 ml @ 125 mls/hr 1X ONCE 09/01/18 18:30 09/02/18 02:29 09/01/18 18:23 125 MLS/HR Allergies Allergies Allergies Coded Allergies Type Severity Reaction Last Updated Verified meperidine HCl Allergy Intermediate 07/26/18 Yes sulfamethoxazole Allergy Intermediate 07/26/18 Yes trimethoprim Allergy Intermediate 07/26/18 Yes Physical Exam Physical Exam Constitutional: Well developed, well nourished, no acute distress, non-toxic appearance. [] HENT: Normocephalic, atraumatic, bilateral external ears normal, oropharynx moist, no oral exudates, nose normal. [] Eyes: PERRLA, EOMI, conjunctiva normal, no discharge. [] Neck: Normal range of motion, no tenderness, supple, no stridor. [] Cardiovascular:Heart rate regular rhythm, no murmur [] Lungs & Thorax: Bilateral breath sounds clear to auscultation [] Abdomen: Bowel sounds decreased, soft, mid abdominal tenderness, no masses, no pulsatile masses. [] Skin: Warm, dry, no erythema, no rash. [] Back: No tenderness, no CVA tenderness. [] Extremities: No tenderness, no cyanosis, no clubbing, ROM intact, no edema. [] Neurologic: Alert and oriented X 3, normal motor function, normal sensory function, no focal deficits noted. [] Psychologic: Affect normal, judgement normal, mood normal. [] Current Patient Data Vital Signs Vital Signs Date Time Temp Pulse Resp B/P (MAP) Pulse Ox O2 Delivery O2 Flow Rate FiO2 09/01/18 17:50 97.4 60 16 170/92 (118) 97 Room Air 97.4 Lab Values Laboratory Tests Test 09/01/18 18:00 White Blood Count 11.4 x10^3/uL (4.0-11.0) H Red Blood Count 5.02 x10^6/uL (4.30-5.70) Hemoglobin 15.5 g/dL (13.0-17.5) Hematocrit 45.0 % (39.0-53.0) Mean Corpuscular Volume 90 fL (79-100) Mean Corpuscular Hemoglobin 31 pg (25-35) Mean Corpuscular Hemoglobin Concent 35 g/dL (31-37) Red Cell Distribution Width 14.0 % (11.5-14.5) Platelet Count 160 x10^3/uL (140-400) Neutrophils (%) (Auto) 72 % (31-73) Lymphocytes (%) (Auto) 15 % (24-48) L Monocytes (%) (Auto) 11 % (0-9) H Eosinophils (%) (Auto) 2 % (0-3) Basophils (%) (Auto) 1 % (0-3) Neutrophils # (Auto) 8.2 x10^3uL (1.8-7.7) H Lymphocytes # (Auto) 1.7 x10^3/uL (1.0-4.8) Monocytes # (Auto) 1.3 x10^3/uL (0.0-1.1) H Eosinophils # (Auto) 0.2 x10^3/uL (0.0-0.7) Basophils # (Auto) 0.1 x10^3/uL (0.0-0.2) Sodium Level 137 mmol/L (136-145) Potassium Level 4.5 mmol/L (3.5-5.1) Chloride Level 101 mmol/L (98-107) Carbon Dioxide Level 25 mmol/L (21-32) Anion Gap 11 (6-14) Blood Urea Nitrogen 29 mg/dL (8-26) H Creatinine 1.9 mg/dL (0.7-1.3) H Estimated GFR (Cockcroft-Gault) 34.7 BUN/Creatinine Ratio 15 (6-20) Glucose Level 100 mg/dL (70-99) H Calcium Level 9.8 mg/dL (8.5-10.1) Total Bilirubin 0.6 mg/dL (0.2-1.0) Aspartate Amino Transferase (AST) 23 U/L (15-37) Alanine Aminotransferase (ALT) 22 U/L (16-63) Alkaline Phosphatase 55 U/L (46-116) Troponin I Quantitative < 0.017 ng/mL (0.000-0.055) Total Protein 8.1 g/dL (6.4-8.2) Albumin 4.1 g/dL (3.4-5.0) Albumin/Globulin Ratio 1.0 (1.0-1.7) Laboratory Tests 09/01/18 18:00 Laboratory Tests 09/01/18 18:00 EKG EKG Sinus rhythm at a rate of 60, history of pacemaker[] Radiology/Procedures Radiology/Procedures [][facility] [address] [place] [address] IMAGING REPORT Signed PATIENT: GILLIAN CORRIGAN ACCOUNT: [id number] : 1945 LOCATION: ER AGE: 73 SEX: M EXAM STATUS: REG ER ORD. PHYSICIAN: HUEY ROGERS MD REASON: pain PROCEDURE: PORTABLE CHEST 1V PORTABLE CHEST 1V Clinical Indication: N/V Comparison: AP chest June 29, 2018. Findings: Situs versus is redemonstrated. Left chest dual-chamber pacer. Median sternotomy wires and changes of CABG. Tortuous thoracic aorta. Cardiac size normal. Lungs are clear. There is no pneumothorax. No pleural effusion is appreciated. No acute bone abnormality. IMPRESSION: 1. Redemonstrated situs inversus. 2. No acute cardiopulmonary process. Electronically signed by: Oswald Wills MD (09/01/2018 7:10 PM) [facility] DICTATED and SIGNED BY: OSWALD WILLS MD DATE: 09/01/181906 [facility] [address] [place] [address] IMAGING REPORT Signed PATIENT: GILLIAN CORRIGAN ACCOUNT: [id number] : 1945 LOCATION: ER AGE: 73 SEX: M EXAM STATUS: REG ER ORD. PHYSICIAN: HUEY ROGERS MD REASON: recurrent SBO with renal failure PROCEDURE: CT ABDOMEN PELVIS WO CONTRAST CT ABDOMEN PELVIS WO CONTRAST Indication: abd pain; hx sbo/adhesions . Recurrent small bowel obstruction. Renal failure. Exposure: One or more of the following individualized dose reduction techniques were utilized for this examination: 1. Automated exposure control 2. Adjustment of the mA and/or kV according to patient size 3. Use of iterative reconstruction technique. Comparison: June 29, 2018 Contrast: No intravenous contrast given. No oral contrast per request. Evaluation of solid viscera, bowel and vasculature is compromised by the noncontrast technique. Situs inversus is again noted. Lower thorax: Mild atelectasis or fibrosis. Liver: Unremarkable Spleen: Unremarkable Pancreas: Unremarkable Adrenals: No evidence of mass. Kidneys: No obvious mass. Mild perinephric standing is stable. Urinary tracts: No urolithiasis or hydronephrosis. Gallbladder: Small gallstone is unchanged. Aorta: Atherosclerotic calcification and ectasia is again identified. The infrarenal abdominal aorta measures 3.3 cm diameter compatible with a small unchanged aneurysm. There is also some some displaced intimal calcification compatible with chronic dissection at this level. Lymph nodes: No significant enlargement GI tract: [id number] fluid distention of small bowel loops compatible with obstruction. The colon contains some retained stool. The small bowel is dilated through the distal ileum, compatible with a distal transition point. Appendix not visualized Reproductive organs:No evidence of mass. Urinary bladder: Unremarkable. Peritoneum: No evidence of pneumoperitoneum. No free fluid. Abdominal wall: There is some scarring or incisional change at the anterior abdominal wall, similar to previous. Spine: Degenerative spondylosis, similar to prior study with stenosis. Bones: No destructive process identified. IMPRESSION: 1. Findings compatible with a distal small bowel obstruction. 2. Stable small infrarenal abdominal aortic aneurysm. 3. Stable cholelithiasis. Electronically signed by: Bennett Dahl MD (09/01/2018 7:42 PM) [facility] DICTATED and SIGNED BY: BENNETT DAHL MD DATE: 09/01/181925 Course & Med Decision Making Course & Med Decision Making Pertinent Labs and Imaging studies reviewed. (See chart for details) Discussed with Dr. Prasad who is aware of the consult Discussed with Dr. Ulloa who is aware and agrees with the admission [] Dragon Disclaimer Dragon Disclaimer This electronic medical record was generated, in whole or in part, using a voice recognition dictation system. Departure Departure Impression: Primary Impression: SBO (small bowel obstruction) Disposition: 09 ADMITTED INPATIENT Admitting Physician: Gavin Ulloa Condition: STABLE Referrals: SUSAN BEAN Jr, MD (PCP) HUEY ROGERS MD Sep 01, 2018 18:33
[2018-09-01 18:41] LABS: CALCIUM 9.8 mg/dL (8.5-10.1); CREATININE 1.9 mg/dL (0.7-1.3); GFR 34.7; POTASSIUM 4.5 mmol/L (3.5-5.1)
[2018-09-01] MEDS ORDERED: ONDANSETRON PF 4 MG/2 ML VIAL. IV ONE ×2 (18:45→20:00)
[2018-09-01 18:47] LABS: ALBUMIN 4.1 g/dL (3.4-5.0); TOTAL BILIRUBIN 0.6 mg/dL (0.2-1.0); TOTAL PROTEIN 8.1 g/dL (6.4-8.2)
--- NOTE | 2018-09-01 19:05 | EKG ---
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
--- NOTE | 2018-09-01 19:13 | RAD ---
PORTABLE CHEST 1V Clinical Indication: N/V Comparison: AP chest June 29, 2018. Findings: Situs versus is redemonstrated. Left chest dual-chamber pacer. Median sternotomy wires and changes of CABG. Tortuous thoracic aorta. Cardiac size normal. Lungs are clear. There is no pneumothorax. No pleural effusion is appreciated. No acute bone abnormality. IMPRESSION: 1. Redemonstrated situs inversus. 2. No acute cardiopulmonary process. Electronically signed by: Oswald Wills MD (09/01/2018 7:10 PM) [facility]
--- NOTE | 2018-09-01 19:44 | RAD ---
CT ABDOMEN PELVIS WO CONTRAST Indication: abd pain; hx sbo/adhesions . Recurrent small bowel obstruction. Renal failure. Exposure: One or more of the following individualized dose reduction techniques were utilized for this examination: 1. Automated exposure control 2. Adjustment of the mA and/or kV according to patient size 3. Use of iterative reconstruction technique. Comparison: June 29, 2018 Contrast: No intravenous contrast given. No oral contrast per request. Evaluation of solid viscera, bowel and vasculature is compromised by the noncontrast technique. Situs inversus is again noted. Lower thorax: Mild atelectasis or fibrosis. Liver: Unremarkable Spleen: Unremarkable Pancreas: Unremarkable Adrenals: No evidence of mass. Kidneys: No obvious mass. Mild perinephric standing is stable. Urinary tracts: No urolithiasis or hydronephrosis. Gallbladder: Small gallstone is unchanged. Aorta: Atherosclerotic calcification and ectasia is again identified. The infrarenal abdominal aorta measures 3.3 cm diameter compatible with a small unchanged aneurysm. There is also some some displaced intimal calcification compatible with chronic dissection at this level. Lymph nodes: No significant enlargement GI tract: [id number] fluid distention of small bowel loops compatible with obstruction. The colon contains some retained stool. The small bowel is dilated through the distal ileum, compatible with a distal transition point. Appendix not visualized Reproductive organs:No evidence of mass. Urinary bladder: Unremarkable. Peritoneum: No evidence of pneumoperitoneum. No free fluid. Abdominal wall: There is some scarring or incisional change at the anterior abdominal wall, similar to previous. Spine: Degenerative spondylosis, similar to prior study with stenosis. Bones: No destructive process identified. IMPRESSION: 1. Findings compatible with a distal small bowel obstruction. 2. Stable small infrarenal abdominal aortic aneurysm. 3. Stable cholelithiasis. Electronically signed by: Bennett Dahl MD (09/01/2018 7:42 PM) [place] [id number]
[2018-09-01] MEDS ORDERED: MORPHINE SULFATE 4 MG/ML VIAL. IV PRN ×3 (19:45→20:45)
[2018-09-01] MEDS ORDERED: ONDANSETRON PF 4 MG/2 ML VIAL. IV PRN (20:45)
[2018-09-01] MEDS: IV NORMAL SALINE 1000ML BAG 1,000 ML IV SCH (22:26)
[2018-09-01 22:30] VITALS: BP 130/73
[2018-09-01 23:31] LABS: BILIRUBIN,URINE NEGATIVE (NEG); CLARITY,URINE CLEAR; COLOR,URINE YELLOW; NITRITE,URINE NEGATIVE (NEG); PH,URINE 5.5; PROTEIN,URINE NEGATIVE (NEG-TRACE); UROBILINOGEN,URINE 0.2 mg/dL (0.2 mg/dL)
[2018-09-01 23:38] LABS: BACTERIA,URINE 0 /HPF (0-FEW); WBC,URINE 0 /HPF (0-4)
[2018-09-01 23:39] LABS: HYALINE CASTS, URINE OCCASIONAL /HPF; SQUAMOUS EPITHELIAL CELL,UR OCC /LPF
[2018-09-02 03:00] VITALS: BP 119/74
[2018-09-02] MEDS: IV NORMAL SALINE 1000ML BAG 1,000 ML IV SCH ×2 (06:07→17:00)
[2018-09-02 07:00] VITALS: BP 131/80
[2018-09-02 11:00] VITALS: BP 126/79
--- NOTE | 2018-09-02 13:07 | PDOC2 ---
CONSULT Date of Consult Date of Consult DATE: 09/02/18 TIME: 13:01 Reason for Consult Reason for Consult: SBO Referring Physician Referring Physician: ARIANNA Identification/Chief Complaint Chief Complaint abdominal pain Source Source: Chart review, Patient History of Present Illness Reason for Visit: 73 yo male who appears younger than his stated age, known to our service from previous admissions for SBO. Has responded to hydration and gut rest in the past. Feels better this AM. Denies nausea/vomiting Past Medical History Cardiovascular: CAD, HTN, [place], Hyperlipidemia GI: GERD, Other Heme/Onc: Cancer Musculoskeletal: Osteoarthritis Past Surgical History Past Surgical History: Appendectomy, Cholecystectomy, CABG, Hernia Repair Family History Family History: No Significant, Heart Disease, Hypertension Social History ALCOHOL: none Drugs: None Current Problem List Problem List Problems Medical Problems: (1) SBO (small bowel obstruction) Status: Acute Current Medications Current Medications Current Medications Sodium Chloride 1,000 ml @ 125 mls/hr 1X ONCE IV Last administered on at 18:23; Start 09/01/18 at 18:30; Stop 09/02/18 at 02:29; Status DC Fentanyl Citrate (Fentanyl 2ml Vial) 25 mcg 1X ONCE IV Last administered on at 18:23; Start 09/01/18 at 18:30; Stop 09/01/18 at 18:31; Status DC Ondansetron HCl (Zofran) 4 mg 1X ONCE IV Last administered on 09/01/18at 18:28 ; Start 09/01/18 at 18:45; Stop 09/01/18 at 18:46; Status DC Fentanyl Citrate (Fentanyl 2ml Vial) 100 mcg STK-MED ONCE .ROUTE ; Start at 18:17; Stop 09/01/18 at 18:18; Status DC Fentanyl Citrate (Fentanyl 2ml Vial) 25 mcg 1X ONCE IV Last administered on at 19:09; Start 09/01/18 at 19:00; Stop 09/01/18 at 19:01; Status DC Fentanyl Citrate (Fentanyl 2ml Vial) 25 mcg 1X ONCE IV Last administered on at 18:40; Start 09/01/18 at 20:00; Stop 09/01/18 at 20:01; Status DC Morphine Sulfate (Morphine Sulfate) 4 mg PRN Q2HR PRN IV MILD TO MODERATE PAIN ; Start 09/01/18 at 19:45 Ondansetron HCl (Zofran) 4 mg 1X ONCE IV Last administered on 09/01/18at 22:26 ; Start 09/01/18 at 20:00; Stop 09/01/18 at 20:01; Status DC Morphine Sulfate (Morphine Sulfate) 8 mg PRN Q2HR PRN IV SEVERE PAIN Last administered on 09/01/18at 20:16; Start 09/01/18 at 20:00 Ondansetron HCl (Zofran) 4 mg PRN Q8HRS PRN IV NAUSEA/VOMITING 1ST CHOICE; Start 09/01/18 at 20:45; Stop 09/02/18 at 20:44 Morphine Sulfate (Morphine Sulfate) 4 mg PRN Q2HR PRN IV PAIN; Start 09/01/18 at 20:45; Stop 09/02/18 at 20:44; Status UNV Sodium Chloride 1,000 ml @ 100 mls/hr Q10H IV Last administered on 09/02/18at 06:07; Start 09/01/18 at 21:00; Stop 09/02/18 at 20:59 Active Scripts Active Reported Konsyl Formula-D Fiber Powder (Psyllium Husk (with Dextrose)) 397 Gm Powder 397 Gm PO Fish Oil ([place]-3 Fatty Acids) 300 Mg Capsule 1,000 Mg PO DAILY Betapace (Sotalol Hcl) 80 Mg Tablet 80 Mg PO BID Lovastatin 20 Mg Tablet 20 Mg PO HS Ranitidine Hcl 300 Mg Capsule 300 Mg PO BID Clopidogrel (Clopidogrel Bisulfate) 75 Mg Tablet 75 Mg PO DAILY Aspirin Buffered 325 Mg Tab (Aspirin/Calcium Carbonate/Mag) 325 Mg Tablet 325 Mg PO DAILY Allergies Allergies: Coded Allergies: meperidine HCl (Verified Allergy, Intermediate, 07/26/18) HYPOTENSION sulfamethoxazole (Verified Allergy, Intermediate, 07/26/18) trimethoprim (Verified Allergy, Intermediate, 07/26/18) ROS Gastrointestinal: Yes Nausea, Yes Vomiting, Yes Abdominal Pain Physical Exam General: Alert, Oriented X3, Cooperative, No acute distress HEENT: Atraumatic, PERRLA Lungs: Normal air movement Heart: Regular rate Abdomen: Soft, No tenderness, Other (well healed midline scar, some fullness to the left that is not tender) MUSCULOSKELETAL: Abnormal active ROM of Vitals VITALS Vital Signs Date Time Temp Pulse Resp B/P (MAP) Pulse Ox O2 Delivery O2 Flow Rate FiO2 09/02/18 11:00 98.0 60 18 126/79 (95) 97 Room Air 98.0 Labs Labs Laboratory Tests Test 09/01/18 18:00 09/01/18 23:20 White Blood Count 11.4 x10^3/uL (4.0-11.0) Red Blood Count 5.02 x10^6/uL (4.30-5.70) Hemoglobin 15.5 g/dL (13.0-17.5) Hematocrit 45.0 % (39.0-53.0) Mean Corpuscular Volume 90 fL (79-100) Mean Corpuscular Hemoglobin 31 pg (25-35) Mean Corpuscular Hemoglobin Concent 35 g/dL (31-37) Red Cell Distribution Width 14.0 % (11.5-14.5) Platelet Count 160 x10^3/uL (140-400) Neutrophils (%) (Auto) 72 % (31-73) Lymphocytes (%) (Auto) 15 % (24-48) Monocytes (%) (Auto) 11 % (0-9) Eosinophils (%) (Auto) 2 % (0-3) Basophils (%) (Auto) 1 % (0-3) Neutrophils # (Auto) 8.2 x10^3uL (1.8-7.7) Lymphocytes # (Auto) 1.7 x10^3/uL (1.0-4.8) Monocytes # (Auto) 1.3 x10^3/uL (0.0-1.1) Eosinophils # (Auto) 0.2 x10^3/uL (0.0-0.7) Basophils # (Auto) 0.1 x10^3/uL (0.0-0.2) Sodium Level 137 mmol/L (136-145) Potassium Level 4.5 mmol/L (3.5-5.1) Chloride Level 101 mmol/L (98-107) Carbon Dioxide Level 25 mmol/L (21-32) Anion Gap 11 (6-14) Blood Urea Nitrogen 29 mg/dL (8-26) Creatinine 1.9 mg/dL (0.7-1.3) Estimated GFR (Cockcroft-Gault) 34.7 BUN/Creatinine Ratio 15 (6-20) Glucose Level 100 mg/dL (70-99) Calcium Level 9.8 mg/dL (8.5-10.1) Total Bilirubin 0.6 mg/dL (0.2-1.0) Aspartate Amino Transf (AST/SGOT) 23 U/L (15-37) Alanine Aminotransferase (ALT/SGPT) 22 U/L (16-63) Alkaline Phosphatase 55 U/L (46-116) Troponin I Quantitative < 0.017 ng/mL (0.000-0.055) Total Protein 8.1 g/dL (6.4-8.2) Albumin 4.1 g/dL (3.4-5.0) Albumin/Globulin Ratio 1.0 (1.0-1.7) Urine Collection Type Unknown Urine Color Yellow Urine Clarity Clear Urine pH 5.5 Urine Specific [place] 1.025 Urine Protein Negative mg/dL (NEG-TRACE) Urine Glucose (UA) Negative mg/dL (NEG) Urine Ketones (Stick) Trace mg/dL (NEG) Urine Blood Negative (NEG) Urine Nitrite Negative (NEG) Urine Bilirubin Negative (NEG) Urine Urobilinogen Dipstick 0.2 mg/dL (0.2 mg/dL) Urine Leukocyte Esterase Negative (NEG) Urine RBC 1-2 /HPF (0-2) Urine WBC 0 /HPF (0-4) Urine Squamous Epithelial Cells Occ /LPF Urine Bacteria 0 /HPF (0-FEW) Urine Hyaline Casts Occasional /HPF Urine Mucus Mod /LPF Laboratory Tests Test 09/01/18 18:00 09/01/18 23:20 White Blood Count 11.4 x10^3/uL (4.0-11.0) Red Blood Count 5.02 x10^6/uL (4.30-5.70) Hemoglobin 15.5 g/dL (13.0-17.5) Hematocrit 45.0 % (39.0-53.0) Mean Corpuscular Volume 90 fL (79-100) Mean Corpuscular Hemoglobin 31 pg (25-35) Mean Corpuscular Hemoglobin Concent 35 g/dL (31-37) Red Cell Distribution Width 14.0 % (11.5-14.5) Platelet Count 160 x10^3/uL (140-400) Neutrophils (%) (Auto) 72 % (31-73) Lymphocytes (%) (Auto) 15 % (24-48) Monocytes (%) (Auto) 11 % (0-9) Eosinophils (%) (Auto) 2 % (0-3) Basophils (%) (Auto) 1 % (0-3) Neutrophils # (Auto) 8.2 x10^3uL (1.8-7.7) Lymphocytes # (Auto) 1.7 x10^3/uL (1.0-4.8) Monocytes # (Auto) 1.3 x10^3/uL (0.0-1.1) Eosinophils # (Auto) 0.2 x10^3/uL (0.0-0.7) Basophils # (Auto) 0.1 x10^3/uL (0.0-0.2) Sodium Level 137 mmol/L (136-145) Potassium Level 4.5 mmol/L (3.5-5.1) Chloride Level 101 mmol/L (98-107) Carbon Dioxide Level 25 mmol/L (21-32) Anion Gap 11 (6-14) Blood Urea Nitrogen 29 mg/dL (8-26) Creatinine 1.9 mg/dL (0.7-1.3) Estimated GFR (Cockcroft-Gault) 34.7 BUN/Creatinine Ratio 15 (6-20) Glucose Level 100 mg/dL (70-99) Calcium Level 9.8 mg/dL (8.5-10.1) Total Bilirubin 0.6 mg/dL (0.2-1.0) Aspartate Amino Transf (AST/SGOT) 23 U/L (15-37) Alanine Aminotransferase (ALT/SGPT) 22 U/L (16-63) Alkaline Phosphatase 55 U/L (46-116) Troponin I Quantitative < 0.017 ng/mL (0.000-0.055) Total Protein 8.1 g/dL (6.4-8.2) Albumin 4.1 g/dL (3.4-5.0) Albumin/Globulin Ratio 1.0 (1.0-1.7) Urine Collection Type Unknown Urine Color Yellow Urine Clarity Clear Urine pH 5.5 Urine Specific [place] 1.025 Urine Protein Negative mg/dL (NEG-TRACE) Urine Glucose (UA) Negative mg/dL (NEG) Urine Ketones (Stick) Trace mg/dL (NEG) Urine Blood Negative (NEG) Urine Nitrite Negative (NEG) Urine Bilirubin Negative (NEG) Urine Urobilinogen Dipstick 0.2 mg/dL (0.2 mg/dL) Urine Leukocyte Esterase Negative (NEG) Urine RBC 1-2 /HPF (0-2) Urine WBC 0 /HPF (0-4) Urine Squamous Epithelial Cells Occ /LPF Urine Bacteria 0 /HPF (0-FEW) Urine Hyaline Casts Occasional /HPF Urine Mucus Mod /LPF Images Images CT done on admission is reviewed Assessment/Plan Assessment/Plan recurrent pSBO CKD (Cr stable from June @ 1.9) check plain films, if improved start clears will follow Thanks for consult WERNER CERVANTES MD Sep 02, 2018 13:07
--- NOTE | 2018-09-02 14:05 | HP ---
ADMIT DATE: 09/02/2018 CHIEF COMPLAINT: Abdominal pain and nausea. HISTORY OF PRESENT ILLNESS: The patient is a pleasant 73-year-old male, well known to my service. Basically, he had a colon cancer resected years ago and since then he has had periodic problems with small bowel obstructions. Dr. Clayton often sees him and in fact the patient was just admitted back in June and I think had a laparoscopic procedure for lysis of adhesions. Once again, he presents with a small-bowel obstruction. He has got nausea, vomiting, abdominal pain rated at 10/10. I discussed the case with ER physician. We have admitted the patient. We have consulted Dr. Prasad. I just discussed the case with Dr. Prasad as well. PAST MEDICAL HISTORY: CAD, bowel obstruction, colon cancer, hyperlipidemia, hypertension, lymphoma, situs inversus, coronary artery bypass, pacemaker, cardiac catheterization with 3 stents, ventral hernia repair. ALLERGIES: MEPERIDINE, SULFA AND TRIMETHOPRIM. FAMILY HISTORY: Hypertension. SOCIAL HISTORY: He is retired. He does not drink, smoke or take drugs. MEDICATIONS: Reviewed, please refer to MAR. REVIEW OF SYSTEMS: GENERAL: No history of weight change, weakness or fevers. SKIN: No bruising, hair changes or rashes. EYES: No blurred, double or loss of vision. NOSE AND THROAT: No history of nosebleeds, hoarseness or sore throat. HEART: No history of palpitations, chest pain or shortness of breath on exertion. LUNGS: Denies cough, hemoptysis, wheezing or shortness of breath. GASTROINTESTINAL: He complains of abdominal pain, although it is improving. GENITOURINARY: No history of frequency, urgency, hesitancy or nocturia. NEUROLOGIC: Denies history of numbness, tingling, tremor or weakness. PSYCHIATRIC: No history of panic, anxiety or depression. ENDOCRINE: No history of heat or cold intolerance, polyuria or polydipsia. EXTREMITIES: Denies muscle weakness, joint pain, pain on walking or stiffness. PHYSICAL EXAMINATION: VITAL SIGNS: Temperature 98, pulse 60, respirations 18, blood pressure 126/79. GENERAL: He is alert, cooperative. HEART: Normal S1, S2. LUNGS: Clear. ABDOMEN: Soft, slightly tender. EXTREMITIES: Trace edema. SKIN: No rashes. ENDOCRINE: No thyromegaly. LYMPHATICS: No cervical nodes. HEMATOPOIETIC: No bruising. LABORATORY DATA: White count is 11. Electrolytes are normal other than a BUN of 29 and creatinine 1.9, glucose is 100. ASSESSMENT AND PLAN: Small-bowel obstruction. The patient has been admitted. We consulted General Surgery. We were going to place an NG, but the patient does not want to because he has had broken noses in the past. For now, cierra Garsia, IV fluids. We are going to recheck another KUB. We will consult Nephrology regarding his creatinine. HÉCTOR NORTON DO DR: KATIA/elida JOB#: [id number] / [id number]
[2018-09-02 15:00] VITALS: BP 130/74
--- NOTE | 2018-09-02 15:44 | RAD ---
ABDOMEN SUPINE UPRIGHT Clinical Indication: SMALL BOWEL OBSTRUCTION Comparison: CT abdomen and pelvis without contrast, prior day. Findings: Patient has situs inversus. There is cardiac pacer. Scattered air in bowel. Dilated small bowel compatible with small bowel obstruction is mostly fluid-filled on CT. The master black belt image from prior CT appearance is nonspecific and similar to today's exam. Therefore findings of small bowel obstruction may still be present but not appreciated radiographically. There is degenerative endplate spurring in the lumbar spine. IMPRESSION: Nonspecific bowel gas pattern. Please see above discussion. Electronically signed by: Oswald Wills MD (09/02/2018 3:40 PM) [facility]
[2018-09-02 19:30] VITALS: BP 125/79
[2018-09-02] MEDS: ATORVASTATIN CALCIUM 10 MG TABLET. PO SCH (21:03)
[2018-09-02] MEDS: FAMOTIDINE 20 MG TABLET. PO SCH (21:03)
[2018-09-02 23:00] VITALS: BP 131/78
[2018-09-03 03:00] VITALS: BP 131/71
[2018-09-03 07:00] VITALS: BP 135/87
[2018-09-03] MEDS: ASPIRIN ENTERIC COATED 325 MG TABLET.DR. PO SCH (08:42)
[2018-09-03] MEDS: FAMOTIDINE 20 MG TABLET. PO SCH ×2 (08:42→21:16)
[2018-09-03] MEDS: CLOPIDOGREL BISULFATE 75 MG TABLET PO SCH (08:42)
[2018-09-03] MEDS: OMEGA-3 FATTY ACIDS/FISH OIL 1,000 MG CAPSULE. PO SCH (08:42)
[2018-09-03] MEDS: SOTALOL 80 MG TABLET. PO SCH ×2 (08:43→21:16)
--- NOTE | 2018-09-03 09:12 | PDOC ---
SEEMA KHOURY STRAW BALER 09/03/18 0912: SURGICAL PROGRESS NOTE Subjective tolerating liquids + flatus sore abdomen Vital Signs Vital Signs Date Time Temp Pulse Resp B/P (MAP) Pulse Ox O2 Delivery O2 Flow Rate FiO2 09/03/18 08:43 60 135/87 09/03/18 07:00 97.9 20 94 Room Air 97.9 I&O Intake and Output 09/03/18 07:00 Intake Total 3920 ml Output Total 600 ml Balance 3320 ml Intake Oral 2120 ml IV Total 1800 ml Output Urine Total 600 ml # Voids 4 General: Alert, Oriented X3, Cooperative, No acute distress Abdomen: Soft, Other (ND) Labs Laboratory Tests Test 09/01/18 18:00 09/01/18 23:20 White Blood Count 11.4 x10^3/uL (4.0-11.0) Red Blood Count 5.02 x10^6/uL (4.30-5.70) Hemoglobin 15.5 g/dL (13.0-17.5) Hematocrit 45.0 % (39.0-53.0) Mean Corpuscular Volume 90 fL (79-100) Mean Corpuscular Hemoglobin 31 pg (25-35) Mean Corpuscular Hemoglobin Concent 35 g/dL (31-37) Red Cell Distribution Width 14.0 % (11.5-14.5) Platelet Count 160 x10^3/uL (140-400) Neutrophils (%) (Auto) 72 % (31-73) Lymphocytes (%) (Auto) 15 % (24-48) Monocytes (%) (Auto) 11 % (0-9) Eosinophils (%) (Auto) 2 % (0-3) Basophils (%) (Auto) 1 % (0-3) Neutrophils # (Auto) 8.2 x10^3uL (1.8-7.7) Lymphocytes # (Auto) 1.7 x10^3/uL (1.0-4.8) Monocytes # (Auto) 1.3 x10^3/uL (0.0-1.1) Eosinophils # (Auto) 0.2 x10^3/uL (0.0-0.7) Basophils # (Auto) 0.1 x10^3/uL (0.0-0.2) Sodium Level 137 mmol/L (136-145) Potassium Level 4.5 mmol/L (3.5-5.1) Chloride Level 101 mmol/L (98-107) Carbon Dioxide Level 25 mmol/L (21-32) Anion Gap 11 (6-14) Blood Urea Nitrogen 29 mg/dL (8-26) Creatinine 1.9 mg/dL (0.7-1.3) Estimated GFR (Cockcroft-Gault) 34.7 BUN/Creatinine Ratio 15 (6-20) Glucose Level 100 mg/dL (70-99) Calcium Level 9.8 mg/dL (8.5-10.1) Total Bilirubin 0.6 mg/dL (0.2-1.0) Aspartate Amino Transf (AST/SGOT) 23 U/L (15-37) Alanine Aminotransferase (ALT/SGPT) 22 U/L (16-63) Alkaline Phosphatase 55 U/L (46-116) Troponin I Quantitative < 0.017 ng/mL (0.000-0.055) Total Protein 8.1 g/dL (6.4-8.2) Albumin 4.1 g/dL (3.4-5.0) Albumin/Globulin Ratio 1.0 (1.0-1.7) Urine Collection Type Unknown Urine Color Yellow Urine Clarity Clear Urine pH 5.5 Urine Specific [place] 1.025 Urine Protein Negative mg/dL (NEG-TRACE) Urine Glucose (UA) Negative mg/dL (NEG) Urine Ketones (Stick) Trace mg/dL (NEG) Urine Blood Negative (NEG) Urine Nitrite Negative (NEG) Urine Bilirubin Negative (NEG) Urine Urobilinogen Dipstick 0.2 mg/dL (0.2 mg/dL) Urine Leukocyte Esterase Negative (NEG) Urine RBC 1-2 /HPF (0-2) Urine WBC 0 /HPF (0-4) Urine Squamous Epithelial Cells Occ /LPF Urine Bacteria 0 /HPF (0-FEW) Urine Hyaline Casts Occasional /HPF Urine Mucus Mod /LPF Problem List Problems Medical Problems: (1) SBO (small bowel obstruction) Status: Acute Assessment/Plan improved advance diet AARTI JOSEPH MD 09/03/18 2017: SURGICAL PROGRESS NOTE Assessment/Plan Pt seen and examined. Agree with Ms. Khoury's note Pt feels better, alex PO, passing flatus and stools CT reviewed, no obvious hernia abd soft, ND, NTTP, scarring of abd wall, possible shallow hernia ADAT plan d/c in AM SEEMA KHOURY APRN Sep 03, 2018 09:12 AARTI JOSEPH MD Sep 03, 2018 20:17
[2018-09-03 10:28] LABS: BASO # 0.1 x10^3/uL (0.0-0.2); BASO % 1 % (0-3); EOS # 0.2 x10^3/uL (0.0-0.7); EOS % 3 % (0-3); HEMATOCRIT 42.3 % (39.0-53.0); HEMOGLOBIN 14.5 g/dL (13.0-17.5); LYMPH # 1.6 x10^3/uL (1.0-4.8); LYMPH % 26 % (24-48); MEAN CORPUSCULAR HEMOGLOBIN 31 pg (25-35); MEAN CORPUSCULAR HGB CONC 34 g/dL (31-37); MEAN CORPUSCULAR VOLUME 91 fL (79-100); MONO # 0.8 x10^3/uL (0.0-1.1); MONO % 12 % (0-9); NEUT # 3.7 x10^3uL (1.8-7.7); NEUT % 59 % (31-73); PLATELET COUNT 123 x10^3/uL (140-400); RED BLOOD COUNT 4.65 x10^6/uL (4.30-5.70); RED CELL DISTRIBUTION WIDTH 14.1 % (11.5-14.5); WHITE BLOOD COUNT 6.3 x10^3/uL (4.0-11.0)
[2018-09-03 10:48] LABS: CALCIUM 8.8 mg/dL (8.5-10.1); CREATININE 1.5 mg/dL (0.7-1.3); GFR 45.6; POTASSIUM 4.6 mmol/L (3.5-5.1)
[2018-09-03 11:00] VITALS: BP 141/88
--- NOTE | 2018-09-03 14:09 | PDOC ---
PROGRESS NOTES Chief Complaint Chief Complaint recurrent sbo h/o sbo h/o CAD h/o lymphoma s/p sx removal h/o colon Ca? HTN hld sam, vasomotor PPM CABG PLAN; FU WITH sx XR didnot show sbo yesterday has flatus, no bm yet advance diet to full liquid as per sx ivf dced labs tmr dvt ppx dc tmr if better History of Present Illness History of Present Illness no bm, has flatus from yesterday no N/V, no abd pain ROS: no fever, chills, sob or chest pain Vitals Vitals Vital Signs Date Time Temp Pulse Resp B/P (MAP) Pulse Ox O2 Delivery O2 Flow Rate FiO2 09/03/18 11:00 97.9 60 20 141/88 (105) 96 Room Air 97.9 Physical Exam General: Alert, Oriented X3, Cooperative, No acute distress Heart: Regular rate Lungs: Clear Abdomen: Soft, No tenderness, Other (decreased bs) Labs LABS Laboratory Tests Test 09/03/18 10:15 White Blood Count 6.3 x10^3/uL (4.0-11.0) Red Blood Count 4.65 x10^6/uL (4.30-5.70) Hemoglobin 14.5 g/dL (13.0-17.5) Hematocrit 42.3 % (39.0-53.0) Mean Corpuscular Volume 91 fL (79-100) Mean Corpuscular Hemoglobin 31 pg (25-35) Mean Corpuscular Hemoglobin Concent 34 g/dL (31-37) Red Cell Distribution Width 14.1 % (11.5-14.5) Platelet Count 123 x10^3/uL (140-400) Neutrophils (%) (Auto) 59 % (31-73) Lymphocytes (%) (Auto) 26 % (24-48) Monocytes (%) (Auto) 12 % (0-9) Eosinophils (%) (Auto) 3 % (0-3) Basophils (%) (Auto) 1 % (0-3) Neutrophils # (Auto) 3.7 x10^3uL (1.8-7.7) Lymphocytes # (Auto) 1.6 x10^3/uL (1.0-4.8) Monocytes # (Auto) 0.8 x10^3/uL (0.0-1.1) Eosinophils # (Auto) 0.2 x10^3/uL (0.0-0.7) Basophils # (Auto) 0.1 x10^3/uL (0.0-0.2) Sodium Level 140 mmol/L (136-145) Potassium Level 4.6 mmol/L (3.5-5.1) Chloride Level 104 mmol/L (98-107) Carbon Dioxide Level 27 mmol/L (21-32) Anion Gap 9 (6-14) Blood Urea Nitrogen 19 mg/dL (8-26) Creatinine 1.5 mg/dL (0.7-1.3) Estimated GFR (Cockcroft-Gault) 45.6 Glucose Level 114 mg/dL (70-99) Calcium Level 8.8 mg/dL (8.5-10.1) Assessment and Plan Assessmemt and Plan Problems Medical Problems: (1) SBO (small bowel obstruction) Status: Acute Comment Review of Relevant I have reviewed the following items mukul (where applicable) has been applied. Labs Laboratory Tests Test 09/01/18 18:00 09/01/18 23:20 09/03/18 10:15 White Blood Count 11.4 x10^3/uL (4.0-11.0) 6.3 x10^3/uL (4.0-11.0) Red Blood Count 5.02 x10^6/uL (4.30-5.70) 4.65 x10^6/uL (4.30-5.70) Hemoglobin 15.5 g/dL (13.0-17.5) 14.5 g/dL (13.0-17.5) Hematocrit 45.0 % (39.0-53.0) 42.3 % (39.0-53.0) Mean Corpuscular Volume 90 fL (79-100) 91 fL (79-100) Mean Corpuscular Hemoglobin 31 pg (25-35) 31 pg (25-35) Mean Corpuscular Hemoglobin Concent 35 g/dL (31-37) 34 g/dL (31-37) Red Cell Distribution Width 14.0 % (11.5-14.5) 14.1 % (11.5-14.5) Platelet Count 160 x10^3/uL (140-400) 123 x10^3/uL (140-400) Neutrophils (%) (Auto) 72 % (31-73) 59 % (31-73) Lymphocytes (%) (Auto) 15 % (24-48) 26 % (24-48) Monocytes (%) (Auto) 11 % (0-9) 12 % (0-9) Eosinophils (%) (Auto) 2 % (0-3) 3 % (0-3) Basophils (%) (Auto) 1 % (0-3) 1 % (0-3) Neutrophils # (Auto) 8.2 x10^3uL (1.8-7.7) 3.7 x10^3uL (1.8-7.7) Lymphocytes # (Auto) 1.7 x10^3/uL (1.0-4.8) 1.6 x10^3/uL (1.0-4.8) Monocytes # (Auto) 1.3 x10^3/uL (0.0-1.1) 0.8 x10^3/uL (0.0-1.1) Eosinophils # (Auto) 0.2 x10^3/uL (0.0-0.7) 0.2 x10^3/uL (0.0-0.7) Basophils # (Auto) 0.1 x10^3/uL (0.0-0.2) 0.1 x10^3/uL (0.0-0.2) Sodium Level 137 mmol/L (136-145) 140 mmol/L (136-145) Potassium Level 4.5 mmol/L (3.5-5.1) 4.6 mmol/L (3.5-5.1) Chloride Level 101 mmol/L (98-107) 104 mmol/L (98-107) Carbon Dioxide Level 25 mmol/L (21-32) 27 mmol/L (21-32) Anion Gap 11 (6-14) 9 (6-14) Blood Urea Nitrogen 29 mg/dL (8-26) 19 mg/dL (8-26) Creatinine 1.9 mg/dL (0.7-1.3) 1.5 mg/dL (0.7-1.3) Estimated GFR (Cockcroft-Gault) 34.7 45.6 BUN/Creatinine Ratio 15 (6-20) Glucose Level 100 mg/dL (70-99) 114 mg/dL (70-99) Calcium Level 9.8 mg/dL (8.5-10.1) 8.8 mg/dL (8.5-10.1) Total Bilirubin 0.6 mg/dL (0.2-1.0) Aspartate Amino Transf (AST/SGOT) 23 U/L (15-37) Alanine Aminotransferase (ALT/SGPT) 22 U/L (16-63) Alkaline Phosphatase 55 U/L (46-116) Troponin I Quantitative < 0.017 ng/mL (0.000-0.055) Total Protein 8.1 g/dL (6.4-8.2) Albumin 4.1 g/dL (3.4-5.0) Albumin/Globulin Ratio 1.0 (1.0-1.7) Urine Collection Type Unknown Urine Color Yellow Urine Clarity Clear Urine pH 5.5 Urine Specific [place] 1.025 Urine Protein Negative mg/dL (NEG-TRACE) Urine Glucose (UA) Negative mg/dL (NEG) Urine Ketones (Stick) Trace mg/dL (NEG) Urine Blood Negative (NEG) Urine Nitrite Negative (NEG) Urine Bilirubin Negative (NEG) Urine Urobilinogen Dipstick 0.2 mg/dL (0.2 mg/dL) Urine Leukocyte Esterase Negative (NEG) Urine RBC 1-2 /HPF (0-2) Urine WBC 0 /HPF (0-4) Urine Squamous Epithelial Cells Occ /LPF Urine Bacteria 0 /HPF (0-FEW) Urine Hyaline Casts Occasional /HPF Urine Mucus Mod /LPF Laboratory Tests Test 09/03/18 10:15 White Blood Count 6.3 x10^3/uL (4.0-11.0) Red Blood Count 4.65 x10^6/uL (4.30-5.70) Hemoglobin 14.5 g/dL (13.0-17.5) Hematocrit 42.3 % (39.0-53.0) Mean Corpuscular Volume 91 fL (79-100) Mean Corpuscular Hemoglobin 31 pg (25-35) Mean Corpuscular Hemoglobin Concent 34 g/dL (31-37) Red Cell Distribution Width 14.1 % (11.5-14.5) Platelet Count 123 x10^3/uL (140-400) Neutrophils (%) (Auto) 59 % (31-73) Lymphocytes (%) (Auto) 26 % (24-48) Monocytes (%) (Auto) 12 % (0-9) Eosinophils (%) (Auto) 3 % (0-3) Basophils (%) (Auto) 1 % (0-3) Neutrophils # (Auto) 3.7 x10^3uL (1.8-7.7) Lymphocytes # (Auto) 1.6 x10^3/uL (1.0-4.8) Monocytes # (Auto) 0.8 x10^3/uL (0.0-1.1) Eosinophils # (Auto) 0.2 x10^3/uL (0.0-0.7) Basophils # (Auto) 0.1 x10^3/uL (0.0-0.2) Sodium Level 140 mmol/L (136-145) Potassium Level 4.6 mmol/L (3.5-5.1) Chloride Level 104 mmol/L (98-107) Carbon Dioxide Level 27 mmol/L (21-32) Anion Gap 9 (6-14) Blood Urea Nitrogen 19 mg/dL (8-26) Creatinine 1.5 mg/dL (0.7-1.3) Estimated GFR (Cockcroft-Gault) 45.6 Glucose Level 114 mg/dL (70-99) Calcium Level 8.8 mg/dL (8.5-10.1) Medications Current Medications Sodium Chloride 1,000 ml @ 125 mls/hr 1X ONCE IV Last administered on at 18:23; Start 09/01/18 at 18:30; Stop 09/02/18 at 02:29; Status DC Fentanyl Citrate (Fentanyl 2ml Vial) 25 mcg 1X ONCE IV Last administered on at 18:23; Start 09/01/18 at 18:30; Stop 09/01/18 at 18:31; Status DC Ondansetron HCl (Zofran) 4 mg 1X ONCE IV Last administered on 09/01/18at 18:28 ; Start 09/01/18 at 18:45; Stop 09/01/18 at 18:46; Status DC Fentanyl Citrate (Fentanyl 2ml Vial) 100 mcg STK-MED ONCE .ROUTE ; Start at 18:17; Stop 09/01/18 at 18:18; Status DC Fentanyl Citrate (Fentanyl 2ml Vial) 25 mcg 1X ONCE IV Last administered on at 19:09; Start 09/01/18 at 19:00; Stop 09/01/18 at 19:01; Status DC Fentanyl Citrate (Fentanyl 2ml Vial) 25 mcg 1X ONCE IV Last administered on at 18:40; Start 09/01/18 at 20:00; Stop 09/01/18 at 20:01; Status DC Morphine Sulfate (Morphine Sulfate) 4 mg PRN Q2HR PRN IV MILD TO MODERATE PAIN ; Start 09/01/18 at 19:45 Ondansetron HCl (Zofran) 4 mg 1X ONCE IV Last administered on 09/01/18at 22:26 ; Start 09/01/18 at 20:00; Stop 09/01/18 at 20:01; Status DC Morphine Sulfate (Morphine Sulfate) 8 mg PRN Q2HR PRN IV SEVERE PAIN Last administered on 09/01/18at 20:16; Start 09/01/18 at 20:00 Ondansetron HCl (Zofran) 4 mg PRN Q8HRS PRN IV NAUSEA/VOMITING 1ST CHOICE; Start 09/01/18 at 20:45; Stop 09/02/18 at 20:44; Status DC Morphine Sulfate (Morphine Sulfate) 4 mg PRN Q2HR PRN IV PAIN; Start 09/01/18 at 20:45; Stop 09/02/18 at 20:44; Status UNV Sodium Chloride 1,000 ml @ 100 mls/hr Q10H IV Last administered on 09/02/18at 06:07; Start 09/01/18 at 21:00; Stop 09/02/18 at 20:59; Status DC Clopidogrel Bisulfate (Plavix) 75 mg DAILY PO Last administered on 09/03/18at 08:42; Start 09/03/18 at 09:00 Aspirin (Ecotrin) 325 mg DAILYWBKFT PO Last administered on 09/03/18at 08:42; Start 09/03/18 at 08:00 Atorvastatin Calcium (Lipitor) 5 mg QHS PO Last administered on 09/02/18at 21: 03; Start 09/02/18 at 21:00 Fish Oil (Fish Oil) 1,000 mg DAILY PO Last administered on 09/03/18at 08:42; Start 09/03/18 at 09:00 Famotidine (Pepcid) 20 mg BID PO Last administered on 09/03/18at 08:42; Start 09/02/18 at 21:00 Sotalol HCl (Betapace) 80 mg BID PO Last administered on 09/03/18at 08:43; Start 09/03/18 at 09:00 Active Scripts Active Reported Konsyl Formula-D Fiber Powder (Psyllium Husk (with Dextrose)) 397 Gm Powder 397 Gm PO Betapace (Sotalol Hcl) 80 Mg Tablet 80 Mg PO BID Lovastatin 20 Mg Tablet 20 Mg PO HS Ranitidine Hcl 300 Mg Capsule 300 Mg PO BID Clopidogrel (Clopidogrel Bisulfate) 75 Mg Tablet 75 Mg PO DAILY Aspirin Buffered 325 Mg Tab (Aspirin/Calcium Carbonate/Mag) 325 Mg Tablet 325 Mg PO DAILY Vitals/I & O Vital Sign - Last 24 Hours 09/02/18 09/02/18 09/02/18 09/02/18 15:00 19:30 20:31 23:00 Temp 98.0 97.8 97.8 98.0 97.8 97.8 Pulse 60 60 60 Resp 18 20 18 B/P (MAP) 130/74 (92) 125/79 (94) 131/78 (95) Pulse Ox 97 95 93 O2 Delivery Room Air Room Air Room Air 09/03/18 09/03/18 09/03/18 09/03/18 03:00 07:00 07:55 08:43 Temp 97.7 97.9 97.7 97.9 Pulse 104 60 60 Resp 18 20 B/P (MAP) 131/71 (91) 135/87 (103) 135/87 Pulse Ox 94 94 O2 Delivery Room Air Room Air 09/03/18 11:00 Temp 97.9 97.9 Pulse 60 Resp 20 B/P (MAP) 141/88 (105) Pulse Ox 96 O2 Delivery Room Air Intake and Output 09/02/18 09/02/18 09/03/18 15:00 23:00 07:00 Intake Total 900 ml 2540 ml 480 ml Output Total 600 ml Balance 900 ml 1940 ml 480 ml DONNA WISDOM MD Sep 03, 2018 14:09
[2018-09-03] MEDS ORDERED: traMADol 50 MG TABLET PO PRN (14:15)
[2018-09-03] MEDS ORDERED: ACETAMINOPHEN 325 MG TABLET. PO PRN (14:15)
[2018-09-03] MEDS ORDERED: MORPHINE SULFATE 2 MG/ML VIAL. IV PRN (14:15)
[2018-09-03] MEDS ORDERED: ONDANSETRON PF 4 MG/2 ML VIAL. IV PRN (14:15)
[2018-09-03] MEDS ORDERED: DOCUSATE SODIUM 100 MG CAPSULE. PO PRN (14:15)
[2018-09-03 15:00] VITALS: BP 132/82
--- NOTE | 2018-09-03 15:21 | PDOC2 ---
CONSULT Date of Consult Date of Consult DATE: 09/03/18 TIME: 15:06 Reason for Consult Reason for Consult: CRI Identification/Chief Complaint Chief Complaint None today Source Source: Chart review, Patient Past Medical History Cardiovascular: CAD, HTN, [place], Hyperlipidemia GI: GERD, Other Heme/Onc: Cancer Musculoskeletal: Osteoarthritis Past Surgical History Past Surgical History: Appendectomy, Cholecystectomy, CABG, Hernia Repair Family History Family History: No Significant, Heart Disease, Hypertension Social History ALCOHOL: none Drugs: None Current Problem List Problem List Problems Medical Problems: (1) SBO (small bowel obstruction) Status: Acute Current Medications Current Medications Current Medications Sodium Chloride 1,000 ml @ 125 mls/hr 1X ONCE IV Last administered on at 18:23; Start 09/01/18 at 18:30; Stop 09/02/18 at 02:29; Status DC Fentanyl Citrate (Fentanyl 2ml Vial) 25 mcg 1X ONCE IV Last administered on at 18:23; Start 09/01/18 at 18:30; Stop 09/01/18 at 18:31; Status DC Ondansetron HCl (Zofran) 4 mg 1X ONCE IV Last administered on 09/01/18at 18:28 ; Start 09/01/18 at 18:45; Stop 09/01/18 at 18:46; Status DC Fentanyl Citrate (Fentanyl 2ml Vial) 100 mcg STK-MED ONCE .ROUTE ; Start at 18:17; Stop 09/01/18 at 18:18; Status DC Fentanyl Citrate (Fentanyl 2ml Vial) 25 mcg 1X ONCE IV Last administered on at 19:09; Start 09/01/18 at 19:00; Stop 09/01/18 at 19:01; Status DC Fentanyl Citrate (Fentanyl 2ml Vial) 25 mcg 1X ONCE IV Last administered on at 18:40; Start 09/01/18 at 20:00; Stop 09/01/18 at 20:01; Status DC Morphine Sulfate (Morphine Sulfate) 4 mg PRN Q2HR PRN IV MODERATE PAIN; Start 09/01/18 at 19:45 Ondansetron HCl (Zofran) 4 mg 1X ONCE IV Last administered on 09/01/18at 22:26 ; Start 09/01/18 at 20:00; Stop 09/01/18 at 20:01; Status DC Morphine Sulfate (Morphine Sulfate) 8 mg PRN Q2HR PRN IV SEVERE PAIN Last administered on 09/01/18at 20:16; Start 09/01/18 at 20:00 Ondansetron HCl (Zofran) 4 mg PRN Q8HRS PRN IV NAUSEA/VOMITING 1ST CHOICE; Start 09/01/18 at 20:45; Stop 09/02/18 at 20:44; Status DC Morphine Sulfate (Morphine Sulfate) 4 mg PRN Q2HR PRN IV PAIN; Start 09/01/18 at 20:45; Stop 09/02/18 at 20:44; Status UNV Sodium Chloride 1,000 ml @ 100 mls/hr Q10H IV Last administered on 09/02/18at 06:07; Start 09/01/18 at 21:00; Stop 09/02/18 at 20:59; Status DC Clopidogrel Bisulfate (Plavix) 75 mg DAILY PO Last administered on 09/03/18at 08:42; Start 09/03/18 at 09:00 Aspirin (Ecotrin) 325 mg DAILYWBKFT PO Last administered on 09/03/18at 08:42; Start 09/03/18 at 08:00 Atorvastatin Calcium (Lipitor) 5 mg QHS PO Last administered on 09/02/18at 21: 03; Start 09/02/18 at 21:00 Fish Oil (Fish Oil) 1,000 mg DAILY PO Last administered on 09/03/18at 08:42; Start 09/03/18 at 09:00 Famotidine (Pepcid) 20 mg BID PO Last administered on 09/03/18at 08:42; Start 09/02/18 at 21:00 Sotalol HCl (Betapace) 80 mg BID PO Last administered on 09/03/18at 08:43; Start 09/03/18 at 09:00 Acetaminophen (Tylenol) 650 mg PRN Q6HRS PRN PO FEVER; Start 09/03/18 at 14:15 Ondansetron HCl (Zofran) 4 mg PRN Q6HRS PRN IV NAUSEA/VOMITING; Start at 14:15 Morphine Sulfate (Morphine Sulfate) 2 mg PRN Q2HR PRN IV MILD PAIN; Start at 14:15 Tramadol HCl (Ultram) 50 mg PRN Q6HRS PRN PO MILD TO MODERATE PAIN; Start at 14:15 Docusate Sodium (Colace) 100 mg PRN DAILY PRN PO CONSTIPATION; Start 09/03/18 at 14:15 Active Scripts Active Reported Konsyl Formula-D Fiber Powder (Psyllium Husk (with Dextrose)) 397 Gm Powder 397 Gm PO Betapace (Sotalol Hcl) 80 Mg Tablet 80 Mg PO BID Lovastatin 20 Mg Tablet 20 Mg PO HS Ranitidine Hcl 300 Mg Capsule 300 Mg PO BID Clopidogrel (Clopidogrel Bisulfate) 75 Mg Tablet 75 Mg PO DAILY Aspirin Buffered 325 Mg Tab (Aspirin/Calcium Carbonate/Mag) 325 Mg Tablet 325 Mg PO DAILY Allergies Allergies: Coded Allergies: meperidine HCl (Verified Allergy, Intermediate, 07/26/18) HYPOTENSION sulfamethoxazole (Verified Allergy, Intermediate, 07/26/18) trimethoprim (Verified Allergy, Intermediate, 07/26/18) ROS Review of System As per HPI Physical Exam Physical Exam GENERAL: NAD , cooperative HEENT-OM moist Neck Supple HEART: Normal S1, S2. LUNGS: Clear, Non labored ABDOMEN: Soft, EXTREMITIES: No edema. SKIN: No rashes. ENDOCRINE: No thyromegaly. No Mckeon, No SP or CVA tenderness Neuro AXOx3, Grossly Normal Vital Signs Vital Signs Date Time Temp Pulse Resp B/P (MAP) Pulse Ox O2 Delivery O2 Flow Rate FiO2 09/03/18 11:00 97.9 60 20 141/88 (105) 96 Room Air 97.9 Assessment & Plan CKD stage 3- since 2013-based on Labs available in the system Pt states he is not aware of it and has never seen Renal No DM, No HTN. Has Hx of CAD , Uses NSAID's prn E-Lytes and acid base stable , Good UOP as per Pt CT scan Reviewed- No abnormal Renal or Bladder findings , UA unremarkable Follow up with Renal as OP , avoid Nephrotoxins including NSAID's SB0- Recurrent Surgery following Hx of CAD- Follows with cardiology Discussed with patient and R N Labs Labs Laboratory Tests Test 09/01/18 18:00 09/01/18 23:20 09/03/18 10:15 White Blood Count 11.4 x10^3/uL (4.0-11.0) 6.3 x10^3/uL (4.0-11.0) Red Blood Count 5.02 x10^6/uL (4.30-5.70) 4.65 x10^6/uL (4.30-5.70) Hemoglobin 15.5 g/dL (13.0-17.5) 14.5 g/dL (13.0-17.5) Hematocrit 45.0 % (39.0-53.0) 42.3 % (39.0-53.0) Mean Corpuscular Volume 90 fL (79-100) 91 fL (79-100) Mean Corpuscular Hemoglobin 31 pg (25-35) 31 pg (25-35) Mean Corpuscular Hemoglobin Concent 35 g/dL (31-37) 34 g/dL (31-37) Red Cell Distribution Width 14.0 % (11.5-14.5) 14.1 % (11.5-14.5) Platelet Count 160 x10^3/uL (140-400) 123 x10^3/uL (140-400) Neutrophils (%) (Auto) 72 % (31-73) 59 % (31-73) Lymphocytes (%) (Auto) 15 % (24-48) 26 % (24-48) Monocytes (%) (Auto) 11 % (0-9) 12 % (0-9) Eosinophils (%) (Auto) 2 % (0-3) 3 % (0-3) Basophils (%) (Auto) 1 % (0-3) 1 % (0-3) Neutrophils # (Auto) 8.2 x10^3uL (1.8-7.7) 3.7 x10^3uL (1.8-7.7) Lymphocytes # (Auto) 1.7 x10^3/uL (1.0-4.8) 1.6 x10^3/uL (1.0-4.8) Monocytes # (Auto) 1.3 x10^3/uL (0.0-1.1) 0.8 x10^3/uL (0.0-1.1) Eosinophils # (Auto) 0.2 x10^3/uL (0.0-0.7) 0.2 x10^3/uL (0.0-0.7) Basophils # (Auto) 0.1 x10^3/uL (0.0-0.2) 0.1 x10^3/uL (0.0-0.2) Sodium Level 137 mmol/L (136-145) 140 mmol/L (136-145) Potassium Level 4.5 mmol/L (3.5-5.1) 4.6 mmol/L (3.5-5.1) Chloride Level 101 mmol/L (98-107) 104 mmol/L (98-107) Carbon Dioxide Level 25 mmol/L (21-32) 27 mmol/L (21-32) Anion Gap 11 (6-14) 9 (6-14) Blood Urea Nitrogen 29 mg/dL (8-26) 19 mg/dL (8-26) Creatinine 1.9 mg/dL (0.7-1.3) 1.5 mg/dL (0.7-1.3) Estimated GFR (Cockcroft-Gault) 34.7 45.6 BUN/Creatinine Ratio 15 (6-20) Glucose Level 100 mg/dL (70-99) 114 mg/dL (70-99) Calcium Level 9.8 mg/dL (8.5-10.1) 8.8 mg/dL (8.5-10.1) Total Bilirubin 0.6 mg/dL (0.2-1.0) Aspartate Amino Transf (AST/SGOT) 23 U/L (15-37) Alanine Aminotransferase (ALT/SGPT) 22 U/L (16-63) Alkaline Phosphatase 55 U/L (46-116) Troponin I Quantitative < 0.017 ng/mL (0.000-0.055) Total Protein 8.1 g/dL (6.4-8.2) Albumin 4.1 g/dL (3.4-5.0) Albumin/Globulin Ratio 1.0 (1.0-1.7) Urine Collection Type Unknown Urine Color Yellow Urine Clarity Clear Urine pH 5.5 Urine Specific [place] 1.025 Urine Protein Negative mg/dL (NEG-TRACE) Urine Glucose (UA) Negative mg/dL (NEG) Urine Ketones (Stick) Trace mg/dL (NEG) Urine Blood Negative (NEG) Urine Nitrite Negative (NEG) Urine Bilirubin Negative (NEG) Urine Urobilinogen Dipstick 0.2 mg/dL (0.2 mg/dL) Urine Leukocyte Esterase Negative (NEG) Urine RBC 1-2 /HPF (0-2) Urine WBC 0 /HPF (0-4) Urine Squamous Epithelial Cells Occ /LPF Urine Bacteria 0 /HPF (0-FEW) Urine Hyaline Casts Occasional /HPF Urine Mucus Mod /LPF Laboratory Tests Test 09/03/18 10:15 White Blood Count 6.3 x10^3/uL (4.0-11.0) Red Blood Count 4.65 x10^6/uL (4.30-5.70) Hemoglobin 14.5 g/dL (13.0-17.5) Hematocrit 42.3 % (39.0-53.0) Mean Corpuscular Volume 91 fL (79-100) Mean Corpuscular Hemoglobin 31 pg (25-35) Mean Corpuscular Hemoglobin Concent 34 g/dL (31-37) Red Cell Distribution Width 14.1 % (11.5-14.5) Platelet Count 123 x10^3/uL (140-400) Neutrophils (%) (Auto) 59 % (31-73) Lymphocytes (%) (Auto) 26 % (24-48) Monocytes (%) (Auto) 12 % (0-9) Eosinophils (%) (Auto) 3 % (0-3) Basophils (%) (Auto) 1 % (0-3) Neutrophils # (Auto) 3.7 x10^3uL (1.8-7.7) Lymphocytes # (Auto) 1.6 x10^3/uL (1.0-4.8) Monocytes # (Auto) 0.8 x10^3/uL (0.0-1.1) Eosinophils # (Auto) 0.2 x10^3/uL (0.0-0.7) Basophils # (Auto) 0.1 x10^3/uL (0.0-0.2) Sodium Level 140 mmol/L (136-145) Potassium Level 4.6 mmol/L (3.5-5.1) Chloride Level 104 mmol/L (98-107) Carbon Dioxide Level 27 mmol/L (21-32) Anion Gap 9 (6-14) Blood Urea Nitrogen 19 mg/dL (8-26) Creatinine 1.5 mg/dL (0.7-1.3) Estimated GFR (Cockcroft-Gault) 45.6 Glucose Level 114 mg/dL (70-99) Calcium Level 8.8 mg/dL (8.5-10.1) Review All relevant outside records, renal labs, imaging studies, telemetry/EKG's were reviewed. Images Images CT scan- 09/01/18= Adrenals: No evidence of mass. Kidneys: No obvious mass. Mild perinephric standing is stable. Urinary tracts: No urolithiasis or hydronephrosis Findings compatible with a distal small bowel obstruction. SANFORD LANCASTER MD Sep 03, 2018 15:20
[2018-09-03 19:00] VITALS: BP 113/60
[2018-09-03] MEDS: ATORVASTATIN CALCIUM 10 MG TABLET. PO SCH (21:15)
[2018-09-03 22:58] VITALS: BP 135/78
[2018-09-04 03:00] VITALS: BP 134/78
[2018-09-04 03:54] LABS: BASO % 1 % (0-3); EOS # 0.3 x10^3/uL (0.0-0.7); EOS % 4 % (0-3); HEMATOCRIT 40.9 % (39.0-53.0); HEMOGLOBIN 13.9 g/dL (13.0-17.5); LYMPH # 1.9 x10^3/uL (1.0-4.8); LYMPH % 30 % (24-48); MEAN CORPUSCULAR HEMOGLOBIN 31 pg (25-35); MEAN CORPUSCULAR HGB CONC 34 g/dL (31-37); MEAN CORPUSCULAR VOLUME 90 fL (79-100); MONO # 0.7 x10^3/uL (0.0-1.1); MONO % 12 % (0-9); NEUT # 3.4 x10^3uL (1.8-7.7); NEUT % 54 % (31-73); PLATELET COUNT 123 x10^3/uL (140-400); RED BLOOD COUNT 4.54 x10^6/uL (4.30-5.70); RED CELL DISTRIBUTION WIDTH 13.9 % (11.5-14.5); WHITE BLOOD COUNT 6.4 x10^3/uL (4.0-11.0)
[2018-09-04 04:12] LABS: CALCIUM 8.4 mg/dL (8.5-10.1); CREATININE 1.4 mg/dL (0.7-1.3); GFR 49.4; POTASSIUM 4.3 mmol/L (3.5-5.1)
[2018-09-04 07:00] VITALS: BP 147/83
--- NOTE | 2018-09-04 08:21 | PDOC ---
SURGICAL PROGRESS NOTE Subjective Pt without c/o, alex PO, had stool today Vital Signs Vital Signs Date Time Temp Pulse Resp B/P (MAP) Pulse Ox O2 Delivery O2 Flow Rate FiO2 09/04/18 07:00 97.8 63 18 147/83 (104) 96 Room Air 97.8 I&O Intake and Output 09/04/18 07:00 Intake Total 2080 ml Balance 2080 ml Intake Oral 2080 ml # Voids 3 PATIENT HAS A QUIJANO: No General: Alert, Oriented X3, Cooperative, No acute distress Abdomen: Soft, No tenderness, Other (no hernias, CT reviewed, no hernia) Labs Laboratory Tests Test 09/03/18 10:15 09/04/18 03:00 White Blood Count 6.3 x10^3/uL (4.0-11.0) 6.4 x10^3/uL (4.0-11.0) Red Blood Count 4.65 x10^6/uL (4.30-5.70) 4.54 x10^6/uL (4.30-5.70) Hemoglobin 14.5 g/dL (13.0-17.5) 13.9 g/dL (13.0-17.5) Hematocrit 42.3 % (39.0-53.0) 40.9 % (39.0-53.0) Mean Corpuscular Volume 91 fL (79-100) 90 fL (79-100) Mean Corpuscular Hemoglobin 31 pg (25-35) 31 pg (25-35) Mean Corpuscular Hemoglobin Concent 34 g/dL (31-37) 34 g/dL (31-37) Red Cell Distribution Width 14.1 % (11.5-14.5) 13.9 % (11.5-14.5) Platelet Count 123 x10^3/uL (140-400) 123 x10^3/uL (140-400) Neutrophils (%) (Auto) 59 % (31-73) 54 % (31-73) Lymphocytes (%) (Auto) 26 % (24-48) 30 % (24-48) Monocytes (%) (Auto) 12 % (0-9) 12 % (0-9) Eosinophils (%) (Auto) 3 % (0-3) 4 % (0-3) Basophils (%) (Auto) 1 % (0-3) 1 % (0-3) Neutrophils # (Auto) 3.7 x10^3uL (1.8-7.7) 3.4 x10^3uL (1.8-7.7) Lymphocytes # (Auto) 1.6 x10^3/uL (1.0-4.8) 1.9 x10^3/uL (1.0-4.8) Monocytes # (Auto) 0.8 x10^3/uL (0.0-1.1) 0.7 x10^3/uL (0.0-1.1) Eosinophils # (Auto) 0.2 x10^3/uL (0.0-0.7) 0.3 x10^3/uL (0.0-0.7) Basophils # (Auto) 0.1 x10^3/uL (0.0-0.2) 0.0 x10^3/uL (0.0-0.2) Sodium Level 140 mmol/L (136-145) 143 mmol/L (136-145) Potassium Level 4.6 mmol/L (3.5-5.1) 4.3 mmol/L (3.5-5.1) Chloride Level 104 mmol/L (98-107) 106 mmol/L (98-107) Carbon Dioxide Level 27 mmol/L (21-32) 26 mmol/L (21-32) Anion Gap 9 (6-14) 11 (6-14) Blood Urea Nitrogen 19 mg/dL (8-26) 19 mg/dL (8-26) Creatinine 1.5 mg/dL (0.7-1.3) 1.4 mg/dL (0.7-1.3) Estimated GFR (Cockcroft-Gault) 45.6 49.4 Glucose Level 114 mg/dL (70-99) 88 mg/dL (70-99) Calcium Level 8.8 mg/dL (8.5-10.1) 8.4 mg/dL (8.5-10.1) Laboratory Tests Test 18 10:15 18 03:00 White Blood Count 6.3 x10^3/uL (4.0-11.0) 6.4 x10^3/uL (4.0-11.0) Red Blood Count 4.65 x10^6/uL (4.30-5.70) 4.54 x10^6/uL (4.30-5.70) Hemoglobin 14.5 g/dL (13.0-17.5) 13.9 g/dL (13.0-17.5) Hematocrit 42.3 % (39.0-53.0) 40.9 % (39.0-53.0) Mean Corpuscular Volume 91 fL (79-100) 90 fL (79-100) Mean Corpuscular Hemoglobin 31 pg (25-35) 31 pg (25-35) Mean Corpuscular Hemoglobin Concent 34 g/dL (31-37) 34 g/dL (31-37) Red Cell Distribution Width 14.1 % (11.5-14.5) 13.9 % (11.5-14.5) Platelet Count 123 x10^3/uL (140-400) 123 x10^3/uL (140-400) Neutrophils (%) (Auto) 59 % (31-73) 54 % (31-73) Lymphocytes (%) (Auto) 26 % (24-48) 30 % (24-48) Monocytes (%) (Auto) 12 % (0-9) 12 % (0-9) Eosinophils (%) (Auto) 3 % (0-3) 4 % (0-3) Basophils (%) (Auto) 1 % (0-3) 1 % (0-3) Neutrophils # (Auto) 3.7 x10^3uL (1.8-7.7) 3.4 x10^3uL (1.8-7.7) Lymphocytes # (Auto) 1.6 x10^3/uL (1.0-4.8) 1.9 x10^3/uL (1.0-4.8) Monocytes # (Auto) 0.8 x10^3/uL (0.0-1.1) 0.7 x10^3/uL (0.0-1.1) Eosinophils # (Auto) 0.2 x10^3/uL (0.0-0.7) 0.3 x10^3/uL (0.0-0.7) Basophils # (Auto) 0.1 x10^3/uL (0.0-0.2) 0.0 x10^3/uL (0.0-0.2) Sodium Level 140 mmol/L (136-145) 143 mmol/L (136-145) Potassium Level 4.6 mmol/L (3.5-5.1) 4.3 mmol/L (3.5-5.1) Chloride Level 104 mmol/L (98-107) 106 mmol/L (98-107) Carbon Dioxide Level 27 mmol/L (21-32) 26 mmol/L (21-32) Anion Gap 9 (6-14) 11 (6-14) Blood Urea Nitrogen 19 mg/dL (8-26) 19 mg/dL (8-26) Creatinine 1.5 mg/dL (0.7-1.3) 1.4 mg/dL (0.7-1.3) Estimated GFR (Cockcroft-Gault) 45.6 49.4 Glucose Level 114 mg/dL (70-99) 88 mg/dL (70-99) Calcium Level 8.8 mg/dL (8.5-10.1) 8.4 mg/dL (8.5-10.1) Problem List Problems Medical Problems: (1) SBO (small bowel obstruction) Status: Acute Assessment/Plan ADAT, cont with bowel regimen OK to d/c home f/u PRN AARTI JOSEPH MD Sep 04, 2018 08:21
[2018-09-04] MEDS: FAMOTIDINE 20 MG TABLET. PO SCH (08:27)
[2018-09-04] MEDS: OMEGA-3 FATTY ACIDS/FISH OIL 1,000 MG CAPSULE. PO SCH (08:27)
[2018-09-04] MEDS: ASPIRIN ENTERIC COATED 325 MG TABLET.DR. PO SCH (08:28)
[2018-09-04] MEDS: CLOPIDOGREL BISULFATE 75 MG TABLET PO SCH (08:28)
[2018-09-04] MEDS: SOTALOL 80 MG TABLET. PO SCH (08:28)
[2018-09-04 10:44] VITALS: BP 120/68
--- NOTE | 2018-09-04 11:01 | PDOC ---
SUBJECTIVE ROS No new concerns, stable , going home OBJECTIVE Vital Signs Vital Signs Date Time Temp Pulse Resp B/P (MAP) Pulse Ox O2 Delivery O2 Flow Rate FiO2 09/04/18 10:44 97.8 62 18 120/68 (85) 98 Room Air 97.8 I & 0 Intake and Output 09/04/18 07:00 Intake Total 2080 ml Balance 2080 ml Intake Oral 2080 ml # Voids 3 PHYSICAL EXAM Physical Exam GENERAL: NAD , cooperative HEENT-OM moist Neck Supple HEART: Normal S1, S2. LUNGS: Clear, Non labored ABDOMEN: Soft, EXTREMITIES: No edema. SKIN: No rashes. ENDOCRINE: No thyromegaly. No Mckeon, No SP or CVA tenderness Neuro AXOx3, Grossly Normal DIAGNOSIS/ASSESSMENT Assessment & Plan WENDI - ? Baseline CKD , Pre-renal Creatinine down to 1.4 from 1.9 E-Lytes and acid base stable CT scan Reviewed- No abnormal Renal or Bladder findings , UA unremarkable CKD stage 3- since 2013-based on Labs available in the system Pt states he is not aware of it and has never seen Renal No DM, No HTN. Has Hx of CAD , Uses NSAID's prn Follow up with Renal as OP , avoid Nephrotoxins including NSAID's SB0- Recurrent Follows with GS Hx of CAD- Follows with cardiology Discussed with patient , Follow up with Renal for CKD as OP COMMENT/RELEVANT DATA Meds Current Medications Medications (Trade) Dose Ordered Sig/Rosemary Start Time Stop Time Status Last Admin Dose Admin Acetaminophen (Tylenol) 650 mg PRN Q6HRS PRN 09/03/18 14:15 Aspirin (Ecotrin) 325 mg DAILYWBKFT 09/03/18 08:00 09/04/18 08:28 325 MG Atorvastatin Calcium (Lipitor) 5 mg QHS 09/02/18 21:00 09/03/18 21:15 5 MG Clopidogrel Bisulfate (Plavix) 75 mg DAILY 09/03/18 09:00 09/04/18 08:28 75 MG Docusate Sodium (Colace) 100 mg PRN DAILY PRN 09/03/18 14:15 Famotidine (Pepcid) 20 mg BID 09/02/18 21:00 09/04/18 08:27 20 MG Fentanyl Citrate (Fentanyl 2ml Vial) 25 mcg 1X ONCE 09/01/18 20:00 09/01/18 20:01 DC 10/13/18 18:40 25 MCG Fish Oil (Fish Oil) 1,000 mg DAILY 09/03/18 09:00 09/04/18 08:27 1,000 MG Morphine Sulfate (Morphine Sulfate) 2 mg PRN Q2HR PRN 09/03/18 14:15 Ondansetron HCl (Zofran) 4 mg PRN Q6HRS PRN 09/03/18 14:15 Sodium Chloride 1,000 ml @ 100 mls/hr Q10H 09/01/18 21:00 09/02/18 20:59 DC 09/02/18 06:07 100 MLS/HR Sotalol HCl (Betapace) 80 mg BID 09/03/18 09:00 09/04/18 08:28 80 MG Tramadol HCl (Ultram) 50 mg PRN Q6HRS PRN 09/03/18 14:15 Lab Laboratory Tests Test 09/04/18 03:00 White Blood Count 6.4 x10^3/uL (4.0-11.0) Red Blood Count 4.54 x10^6/uL (4.30-5.70) Hemoglobin 13.9 g/dL (13.0-17.5) Hematocrit 40.9 % (39.0-53.0) Mean Corpuscular Volume 90 fL (79-100) Mean Corpuscular Hemoglobin 31 pg (25-35) Mean Corpuscular Hemoglobin Concent 34 g/dL (31-37) Red Cell Distribution Width 13.9 % (11.5-14.5) Platelet Count 123 x10^3/uL (140-400) Neutrophils (%) (Auto) 54 % (31-73) Lymphocytes (%) (Auto) 30 % (24-48) Monocytes (%) (Auto) 12 % (0-9) Eosinophils (%) (Auto) 4 % (0-3) Basophils (%) (Auto) 1 % (0-3) Neutrophils # (Auto) 3.4 x10^3uL (1.8-7.7) Lymphocytes # (Auto) 1.9 x10^3/uL (1.0-4.8) Monocytes # (Auto) 0.7 x10^3/uL (0.0-1.1) Eosinophils # (Auto) 0.3 x10^3/uL (0.0-0.7) Basophils # (Auto) 0.0 x10^3/uL (0.0-0.2) Sodium Level 143 mmol/L (136-145) Potassium Level 4.3 mmol/L (3.5-5.1) Chloride Level 106 mmol/L (98-107) Carbon Dioxide Level 26 mmol/L (21-32) Anion Gap 11 (6-14) Blood Urea Nitrogen 19 mg/dL (8-26) Creatinine 1.4 mg/dL (0.7-1.3) Estimated GFR (Cockcroft-Gault) 49.4 Glucose Level 88 mg/dL (70-99) Calcium Level 8.4 mg/dL (8.5-10.1) Results All relevant outside records, renal labs, imaging studies, telemetry/EKG's were reviewed. SANFORD LANCASTER MD Sep 04, 2018 11:01
--- NOTE | 2018-09-04 12:23 | PDOC3 ---
Discharge Summary [facility] Date of Admission: Sep 01, 2018 Discharge Date: Sep 04, 2018 Admitting Diagnosis recurrent sbo h/o sbo h/o CAD h/o lymphoma s/p sx removal h/o colon Ca? HTN hld sam, vasomotor PPM h/o CABG CKD3 Final Diagnosis CONSULTS renal sx Brief Hospital Course Mr. Mccullough is a 73 old m, WITH H/O multiple abd sx, and h/o sbo, lymphoma, came for abd pain. CT showed distant Sbo. PT IMPROVED with bowel rest, no abd pain now, with mild tenderness, has flatus and BM today. no N/V, eats well. dc home. Cr better with IVF. dc time 35min. General: Alert, Oriented X3, Cooperative, No acute distress Heart: Regular rate Lungs: Clear Abdomen: Soft, lower abd mild tenderness, Other (decreased bs) ext; no edema Patient History: FHx: cancer G8 SISTER G8 SISTER FHx: emphysema G8 BROTHER Disposition home CONDITION AT DISCHARGE: Stable Scheduled Aspirin/Calcium Carbonate/Mag (Aspirin Buffered 325 Mg Tab), 325 MG PO DAILY, ( Reported) Clopidogrel Bisulfate (Clopidogrel), 75 MG PO DAILY, (Reported) Lovastatin (Lovastatin), 20 MG PO HS, (Reported) Williams-3 Fatty Acids (Fish Oil), 1,000 MG PO DAILY, (Reported) Ranitidine Hcl (Ranitidine Hcl), 300 MG PO BID, (Reported) Sotalol Hcl (Betapace), 80 MG PO BID, (Reported) Miscellaneous Medications Psyllium Husk (with Dextrose) (Konsyl Formula-D Fiber Powder), 397 GM PO, ( Reported) DONNA WISDOM MD Sep 04, 2018 12:23
== END 2018-09-04 11:02 | disposition home or self-care (01) | DRG 388 ==
LOC: ER 17:44 → 5 SOUTH 20:22
PROVIDERS: ADMIT Internal Medicine; ATTEND Internal Medicine
DX: K56.600 Partial intestinal obstruction, unspecified as to cause (principal); N17.0 Acute kidney failure with tubular necrosis; Q89.3 Situs inversus; E78.5 Hyperlipidemia, unspecified; I12.9 Hypertensive chronic kidney disease with stage 1 through stage 4 chronic kidney disease, or unspecified chronic kidney disease; E78.00 Pure hypercholesterolemia, unspecified; I25.10 Atherosclerotic heart disease of native coronary artery without angina pectoris; I71.4 Abdominal aortic aneurysm, without rupture; K21.9 Gastro-esophageal reflux disease without esophagitis; K80.20 Calculus of gallbladder without cholecystitis without obstruction; N18.3 Chronic kidney disease, stage 3 (moderate); M19.90 Unspecified osteoarthritis, unspecified site; Z82.49 Family history of ischemic heart disease and other diseases of the circulatory system; Z85.038 Personal history of other malignant neoplasm of large intestine; Z82.5 Family history of asthma and other chronic lower respiratory diseases; Z85.72 Personal history of non-Hodgkin lymphomas; Z90.49 Acquired absence of other specified parts of digestive tract; Z95.1 Presence of aortocoronary bypass graft; Z88.8 Allergy status to other drugs, medicaments and biological substances; Z79.899 Other long term (current) drug therapy
CPT/HCPCS: 36415; 71045; 74021; 74176; 80048; 80053; 81001; 84484; 85025; 93005; 96361; 96374; 96375; J2270; J2405; J3010; J7030; 99285-25

== ENCOUNTER 2020-08-02 01:01 | Inpatient (IN) | payer MEDICARE ==
[~2020-08-02] VITALS: Ht 190.5 cm; Wt 109.5 kg
[~2020-08-02 01:01] MED LIST changes: +CHOL10002 PO; +CYAN-25 PO; +HYDR-3164 PO; -HYDR-971 PO; +TRAM50TA PO; +[UNRECOGNIZED DRUG - CODE] PO; -[UNRECOGNIZED DRUG - CODE] PO
--- NOTE | 2020-08-02 01:20 | PHYS DOC ---
Past Medical History Past Medical History: CAD, Cancer, GERD, High Cholesterol, Hypertension, Other Additional Past Medical Histor: LYMPHOMA, SITIS INVERSUS, BOWEL OBSTRUCTION, INCISIONAL HERNIAS Past Surgical History: Appendectomy, Cancer Surgery, Coronary Bypass Surgery, Pacemaker Additional Past Surgical Histo: HEART CATH (SEVERAL) STENTS X'S 3, VENTERAL HERNIA, OPEN HEART Smoking Status: Former Smoker Alcohol Use: None Drug Use: None General Adult EDM: Chief Complaint: NAUSEA/VOMITING/DIARRHA HPI: HPI: Patient is a 74 year old male who presents with a chief complaint of abdominal pain with 2 episodes of vomiting that began about 5:30 PM yesterday. Patient describes severe and intensity mid right abdominal pain that radiates to the back. Pain is worse with palpation and with eating. Pain is sharp and stabbing in nature. Patient denies any fever chills cough diarrhea. Review of Systems: Review of Systems: Constitutional: Denies fever or chills. [] Eyes: Denies change in visual acuity. [] HENT: Denies nasal congestion or sore throat. [] Respiratory: Denies cough or shortness of breath. [] Cardiovascular: Denies chest pain or edema. [] GI: Complains of abdominal pain with nausea and vomiting but no diarrhea : Denies dysuria. [] Musculoskeletal: Complains of back pain Integument: Denies rash. [] Neurologic: Denies headache, focal weakness or sensory changes. [] Endocrine: Denies polyuria or polydipsia. [] Lymphatic: Denies swollen glands. [] Psychiatric: Denies depression or anxiety. [] Heart Score: Risk Factors: Risk Factors: DM, Current or recent (<one month) smoker, HTN, HLP, family history of CAD, obesity. Risk Scores: Score 0 - 3: 2.5% MACE over next 6 weeks - Discharge Home Score 4 - 6: 20.3% MACE over next 6 weeks - Admit for Clinical Observation Score 7 - 10: 72.7% MACE over next 6 weeks - Early Invasive Strategies Current Medications: Current Medications Medications (Trade) Dose Ordered Sig/Rosemary Start Time Stop Time Status Last Admin Dose Admin Ondansetron HCl (Zofran) 4 mg 1X ONCE 08/02/20 01:30 08/02/20 01:31 Sodium Chloride 500 ml @ 500 mls/hr 1X ONCE 08/02/20 01:30 08/02/20 02:29 Allergies: Allergies: Allergies Coded Allergies Type Severity Reaction Last Updated Verified meperidine HCl Allergy Intermediate 10/14/18 Yes sulfamethoxazole Allergy Intermediate 10/14/18 Yes trimethoprim Allergy Intermediate 10/14/18 Yes Physical Exam: PE: Constitutional: Well developed, well nourished, mild distress. HENT: Normocephalic, atraumatic, bilateral external ears normal, no trismus nose normal. [] Eyes: PERRLA, EOMI, conjunctiva normal, no discharge. [] Neck: Normal range of motion, no tenderness, supple, no stridor. [] Cardiovascular:Heart rate regular rhythm,, peripheral pulse intact cap refill brisk Lungs & Thorax: Bilateral breath sounds clear, no respiratory distress Abdomen: Soft with tenderness on the right mid abdomen with voluntary guarding but no rebound no pulsatile masses Skin: Warm, dry, no erythema, no rash. [] Back: No tenderness, no CVA tenderness. [] Extremities: No tenderness, no cyanosis, no clubbing, ROM intact, no edema. [] Neurologic: Alert and oriented X 3, normal motor function, normal sensory function, no focal deficits noted. [] Psychologic: Affect normal, judgement normal, mood normal. [] Current Patient Data: Labs: Laboratory Tests Test 08/02/20 01:24 White Blood Count 10.2 x10^3/uL Red Blood Count 4.74 x10^6/uL Hemoglobin 14.5 g/dL Hematocrit 43.1 % Mean Corpuscular Volume 91 fL Mean Corpuscular Hemoglobin 31 pg Mean Corpuscular Hemoglobin Concent 34 g/dL Red Cell Distribution Width 13.9 % Platelet Count 130 x10^3/uL Neutrophils (%) (Auto) 78 % Lymphocytes (%) (Auto) 14 % Monocytes (%) (Auto) 7 % Eosinophils (%) (Auto) 1 % Basophils (%) (Auto) 1 % Neutrophils # (Auto) 8.0 x10^3/uL Lymphocytes # (Auto) 1.4 x10^3/uL Monocytes # (Auto) 0.7 x10^3/uL Eosinophils # (Auto) 0.1 x10^3/uL Basophils # (Auto) 0.1 x10^3/uL Sodium Level 140 mmol/L Potassium Level 4.7 mmol/L Chloride Level 105 mmol/L Carbon Dioxide Level 28 mmol/L Anion Gap 7 Blood Urea Nitrogen 27 mg/dL Creatinine 2.1 mg/dL Estimated GFR (Cockcroft-Gault) 30.9 BUN/Creatinine Ratio 13 Glucose Level 126 mg/dL Lactic Acid Level 0.9 mmol/L Calcium Level 9.8 mg/dL Total Bilirubin 0.5 mg/dL Aspartate Amino Transf (AST/SGOT) 27 U/L Alanine Aminotransferase (ALT/SGPT) 26 U/L Alkaline Phosphatase 52 U/L Total Protein 7.8 g/dL Albumin 4.2 g/dL Albumin/Globulin Ratio 1.2 Lipase 172 U/L Current Medications Medications (Trade) Dose Ordered Sig/Rosemary Route PRN Reason Start Time Stop Time Status Last Admin Dose Admin Ondansetron HCl (Zofran) 4 mg 1X ONCE IVP 08/02/20 01:30 08/02/20 01:31 DC 08/02/20 01:29 Sodium Chloride 500 ml @ 500 mls/hr 1X ONCE IV 08/02/20 01:30 08/02/20 02:29 DC Morphine Sulfate (Morphine Sulfate) 4 mg 1X ONCE IV 08/02/20 02:00 08/02/20 02:01 DC 08/02/20 01:29 Iohexol (Omnipaque 240 Mg/ml) 30 ml 1X ONCE PO 08/02/20 02:15 08/02/20 02:16 DC 08/02/20 02:43 Info (CONTRAST GIVEN -- Rx MONITORING) 1 each PRN DAILY PRN MC SEE COMMENTS 08/02/20 02:00 08/04/20 01:59 Sodium Chloride 1,000 ml @ 1,000 mls/hr 1X ONCE IV 08/02/20 02:30 08/02/20 03:29 DC 08/02/20 01:29 Morphine Sulfate (Morphine Sulfate) 4 mg 1X ONCE IV 08/02/20 02:45 08/02/20 02:46 DC 08/02/20 02:42 Ondansetron HCl (Zofran) 4 mg 1X ONCE IVP 08/02/20 02:45 08/02/20 02:53 DC 08/02/20 02:44 Vital Signs: Vital Signs Date Time Temp Pulse Resp B/P (MAP) Pulse Ox O2 Delivery O2 Flow Rate FiO2 08/02/20 02:42 98 Room Air 08/02/20 01:29 18 97 08/02/20 01:12 98.1 60 22 186/94 (124) 98 Room Air 98.1 EKG: EKG: [] EKG interpreted by me normal sinus rhythm with rate of 60 right axis deviation lack of R wave progression through precordial leads diffuse ST flattening Radiology/Procedures: Radiology/Procedures: [][facility] [address] [place] [address] IMAGING REPORT Signed PATIENT: GILLIAN CORRIGAN ACCOUNT: [id number] : 1945 LOCATION: ER AGE: 74 SEX: M EXAM STATUS: REG ER ORD. PHYSICIAN: SAW ZAMBRANO MD REASON: abd pain,n/v, hx of sbo, OMNI 240, 30 ML PO PROCEDURE: CT ABD PEL W/ORAL CONTRST ONLY Examination: CT of the abdomen pelvis with oral contrast HISTORY: History of abdominal pain, nausea, vomiting COMPARISON: 10/09/2018 TECHNIQUE: Axial CT images of the abdomen pelvis were performed with oral contrast. Coronal and sagittal reformats are performed Exposure: One or more of the following individualized dose reduction techniques were utilized for this examination: 1. Automated exposure control 2. Adjustment of the mA and/or kV according to patient size 3. Use of iterative reconstruction technique FINDINGS: Mild bibasilar lung atelectasis identified No evidence of free air identified in the abdomen Situs inversus is identified. The liver, spleen, adrenals grossly appears unremarkable. Gallbladder is mildly distended. Gallstones identified within the gallbladder The stomach is mildly distended Multiple dilated small bowel loops identified throughout the abdomen. Interval increase in size of the right anterior abdominal wall ventral hernia now measuring 8.2 cm in transverse dimension containing omentum and fat minimal fluid within. Small midline ventral hernia is unchanged. There is mild fat stranding identified in the about the terminal ileum Urinary bladder is mildly distended No evidence of intrarenal collecting system calculi or hydronephrosis identified. Moderate aortic atherosclerosis. Aneurysmal change of the infrarenal abdominal aorta measuring 3 cm. Moderate degenerative changes lumbar spine IMPRESSION: 1. Multiple dilated small bowel loops identified throughout the abdomen could be small bowel obstruction with mild inflammatory fat stranding identified about the terminal ileum could be secondary to ileitis. 2. Situs inversus. 2. Cholelithiasis. 4. Interval increase in size of the right anterior lateral abdominal wall ventral hernia now measuring 8.2 cm in transverse dimension containing omentum and fat minimal fluid within. Small midline ventral hernia is unchanged Electronically signed by: Henrry Ennis MD (08/02/2020 3:16 AM) [id number] DICTATED and SIGNED BY: HENRRY ENNIS MD DATE: 08/02/20 0316 Course & Med Decision Making: Course & Med Decision Making Pertinent Labs and Imaging studies reviewed. (See chart for details) [] 74-year-old male presents with abdominal pain. CT concerning for small bowel obstruction. Patient is declining NG tube at this time. Patient will be admitted to Dr. Brownlee with a consult placed with surgery. Kathia Disclaimer: Kathia Disclaimer: This electronic medical record was generated, in whole or in part, using a voice recognition dictation system. Departure Departure Impression: Primary Impression: SBO (small bowel obstruction) Additional Impression: Abdominal pain Disposition: ADMITTED INPATIENT Admitting Physician: ROMEO (Kem) Condition: STABLE Referrals: SUSAN BEAN Jr, MD (PCP) Justicifation of Admission Dx: Justifications for Admission: Justification of Admission Dx: Yes (Small bowel obstruction) SAW ZAMBRANO MD Aug 02, 2020 01:20
[2020-08-02] MEDS: IV NORMAL SALINE 500ML BAG 500 ML IV ONE ×2 (01:29→02:18)
[2020-08-02] MEDS ORDERED: ONDANSETRON PF 4 MG/2 ML VIAL. IVP ONE ×2 (01:30→02:45)
[2020-08-02 01:51] LABS: BASO # 0.1 x10^3/uL (0.0-0.2); BASO % 1 % (0-3); EOS # 0.1 x10^3/uL (0.0-0.7); EOS % 1 % (0-3); HEMATOCRIT 43.1 % (39.0-53.0); HEMOGLOBIN 14.5 g/dL (13.0-17.5); LYMPH # 1.4 x10^3/uL (1.0-4.8); LYMPH % 14 % (24-48); MEAN CORPUSCULAR HEMOGLOBIN 31 pg (25-35); MEAN CORPUSCULAR HGB CONC 34 g/dL (31-37); MEAN CORPUSCULAR VOLUME 91 fL (79-100); MONO # 0.7 x10^3/uL (0.0-1.1); MONO % 7 % (0-9); NEUT % 78 % (31-73); PLATELET COUNT 130 x10^3/uL (140-400); RED BLOOD COUNT 4.74 x10^6/uL (4.30-5.70); RED CELL DISTRIBUTION WIDTH 13.9 % (11.5-14.5); WHITE BLOOD COUNT 10.2 x10^3/uL (4.0-11.0)
[2020-08-02 01:59] LABS: CALCIUM 9.8 mg/dL (8.5-10.1); CREATININE 2.1 mg/dL (0.7-1.3); GFR 30.9; POTASSIUM 4.7 mmol/L (3.5-5.1)
[2020-08-02] MEDS ORDERED: MORPHINE SULFATE 4 MG/ML VIAL. IV ONE ×2 (02:00→02:45)
[2020-08-02] MEDS ORDERED: CONTRAST GIVEN. MC PRN (02:00)
[2020-08-02 02:05] LABS: ALBUMIN 4.2 g/dL (3.4-5.0); ALBUMIN/GLOBULIN RATIO 1.2 (1.0-1.7); TOTAL BILIRUBIN 0.5 mg/dL (0.2-1.0); TOTAL PROTEIN 7.8 g/dL (6.4-8.2)
[2020-08-02] MEDS ORDERED: IOHEXOL 240 MG/ML 50ML VIAL. PO ONE (02:15)
[2020-08-02] MEDS ORDERED: IV NORMAL SALINE 1000ML BAG 1,000 ML IV ONE (02:30)
[2020-08-02] MEDS ORDERED: ASPI-630 PO (03:05)
[2020-08-02] MEDS ORDERED: APIX5TAB PO (03:05)
--- NOTE | 2020-08-02 03:19 | RAD ---
Examination: CT of the abdomen pelvis with oral contrast HISTORY: History of abdominal pain, nausea, vomiting COMPARISON: 10/09/2018 TECHNIQUE: Axial CT images of the abdomen pelvis were performed with oral contrast. Coronal and sagittal reformats are performed Exposure: One or more of the following individualized dose reduction techniques were utilized for this examination: 1. Automated exposure control 2. Adjustment of the mA and/or kV according to patient size 3. Use of iterative reconstruction technique FINDINGS: Mild bibasilar lung atelectasis identified No evidence of free air identified in the abdomen Situs inversus is identified. The liver, spleen, adrenals grossly appears unremarkable. Gallbladder is mildly distended. Gallstones identified within the gallbladder The stomach is mildly distended Multiple dilated small bowel loops identified throughout the abdomen. Interval increase in size of the right anterior abdominal wall ventral hernia now measuring 8.2 cm in transverse dimension containing omentum and fat minimal fluid within. Small midline ventral hernia is unchanged. There is mild fat stranding identified in the about the terminal ileum Urinary bladder is mildly distended No evidence of intrarenal collecting system calculi or hydronephrosis identified. Moderate aortic atherosclerosis. Aneurysmal change of the infrarenal abdominal aorta measuring 3 cm. Moderate degenerative changes lumbar spine IMPRESSION: 1. Multiple dilated small bowel loops identified throughout the abdomen could be small bowel obstruction with mild inflammatory fat stranding identified about the terminal ileum could be secondary to ileitis. 2. Situs inversus. 2. Cholelithiasis. 4. Interval increase in size of the right anterior lateral abdominal wall ventral hernia now measuring 8.2 cm in transverse dimension containing omentum and fat minimal fluid within. Small midline ventral hernia is unchanged Electronically signed by: Henrry Ennis MD (08/02/2020 3:16 AM) [id number]
[2020-08-02] MEDS ORDERED: MORPHINE SULFATE 4 MG/ML VIAL. IV PRN (04:00)
[2020-08-02] MEDS ORDERED: ONDANSETRON PF 4 MG/2 ML VIAL. IV PRN (04:00)
[2020-08-02 04:40] VITALS: BP 169/97
--- NOTE | 2020-08-02 04:50 | NUR ---
Patient admitted from ER to room 434 per cart with diagnosis of SBO with abdominal pain, nausea and vomiting. Patient is alert and oriented x4. Patient is meperidine, sulfa and trimethoprim. Patient has a long medical history and has had a bowel obstruction before. Patient lives at home with his . Patient is NPO. In moderate distress due to abdominal pain. Consult with Dr. Clayton.
[2020-08-02] MEDS: IV NORMAL SALINE 1000ML BAG 1,000 ML IV SCH ×3 (05:15→19:27)
[2020-08-02 07:23] VITALS: BP 147/80
[2020-08-02 10:26] VITALS: BP 124/60
--- NOTE | 2020-08-02 11:13 | PDOC1 ---
History and Physical Date of Service: DOS: DATE: 08/02/20 TIME: 11:03 Chief Complaint: Chief Complain: Abdominal pain History of Present Illness: HPI: 74 year old male who presents with a chief complaint of abdominal pain with 2 episodes of vomiting that began about 5:30 PM yesterday. Patient describes severe and intensity mid right abdominal pain that radiates to the back. Pain is worse with palpation and with eating. Pain is sharp and stabbing in nature. Patient denies any fever chills cough diarrhea. Patient seen and examined by me at bedside in the morning. Patient states that he has had jenn-umbilical abdominal pain with associated nausea that radiates to his back. Patient stated he had dinner last night at that is when the pain started. He went to have a bowel movement at midnight and stated that the pain still remained regardless. Denies fevers, chills, chest pain, dysuria, diarrhea , bloody stools, hematemesis, or sick contacts. Or recent travel. Patient states that he has had multiple hernia repairs in the past with Dr. Piper. Past Medical/Surgical History: PMH/PSH: Past Medical History: CAD, Cancer, GERD, High Cholesterol, Hypertension, LYMPHOMA, SITIS INVERSUS, BOWEL OBSTRUCTION, INCISIONAL HERNIAS Past Surgical History: Appendectomy, Cancer Surgery, Coronary Bypass Surgery, Pacemaker, HEART CATH (SEVERAL) STENTS X'S 3, VENTERAL HERNIA, OPEN HEART Allergies: Allergies: Coded Allergies: meperidine HCl (Verified Allergy, Intermediate, 10/14/18) HYPOTENSION- "drops bp to 0?" sulfamethoxazole (Verified Allergy, Intermediate, 10/14/18) dizzy trimethoprim (Verified Allergy, Intermediate, 10/14/18) dizzy Family History: Family History: Reviewed and none reported Social History: Social History: Smoking Status: Former Smoker Alcohol Use: None Drug Use: None Current Medications: Current Medications Current Medications Ondansetron HCl (Zofran) 4 mg 1X ONCE IVP Last administered on 08/02/20at 01:29; Start 08/02/20 at 01:30; Stop 08/02/20 at 01:31; Status DC Sodium Chloride 500 ml @ 500 mls/hr 1X ONCE IV ; Start 08/02/20 at 01:30; Stop 08/02/20 at 02:29; Status DC Morphine Sulfate (Morphine Sulfate) 4 mg 1X ONCE IV Last administered on 08/02/20at 01:29; Start 08/02/20 at 02:00; Stop 08/02/20 at 02:01; Status DC Iohexol (Omnipaque 240 Mg/ml) 30 ml 1X ONCE PO Last administered on 08/02/20at 02:43; Start 08/02/20 at 02:15; Stop 08/02/20 at 02:16; Status DC Info (CONTRAST GIVEN -- Rx MONITORING) 1 each PRN DAILY PRN MC SEE COMMENTS; Start 08/02/20 at 02:00; Stop 08/04/20 at 01:59 Sodium Chloride 1,000 ml @ 1,000 mls/hr 1X ONCE IV Last administered on 08/02/20at 01:29; Start 08/02/20 at 02:30; Stop 08/02/20 at 03:29; Status DC Morphine Sulfate (Morphine Sulfate) 4 mg 1X ONCE IV Last administered on 08/02/20at 02:42; Start 08/02/20 at 02:45; Stop 08/02/20 at 02:46; Status DC Ondansetron HCl (Zofran) 4 mg 1X ONCE IVP Last administered on 08/02/20at 02:44; Start 08/02/20 at 02:45; Stop 08/02/20 at 02:53; Status DC Ondansetron HCl (Zofran) 4 mg PRN Q8HRS PRN IV NAUSEA/VOMITING 1st choice; Start 08/02/20 at 04:00; Stop 08/03/20 at 03:59 Morphine Sulfate (Morphine Sulfate) 4 mg PRN Q2HR PRN IV SEVERE PAIN 7-10 Last administered on 08/02/20at 05:06; Start 08/02/20 at 04:00; Stop 08/03/20 at 03:59 Sodium Chloride 1,000 ml @ 125 mls/hr Q8H IV Last administered on 08/02/20at 05:15; Start 08/02/20 at 04:00; Stop 08/03/20 at 03:59 Active Scripts Active Reported Eliquis (Apixaban) 5 Mg Tablet 5 Mg PO BID Aspirin 81 Mg Tab.chew 1 Tab PO DAILY Betapace (Sotalol Hcl) 80 Mg Tablet 80 Mg PO BID Lovastatin 20 Mg Tablet 20 Mg PO HS Ranitidine Hcl 300 Mg Capsule 300 Mg PO BID ROS: Review of Systems Review of System REVIEW OF SYSTEMS: GENERAL: Denies weakness SKIN: No bruising, hair changes or rashes. EYES: No blurred, double or loss of vision. NOSE AND THROAT: No history of nosebleeds, hoarseness or sore throat. HEART: No history of palpitations, chest pain or shortness of breath on exertion. LUNGS: Denies cough, hemoptysis, wheezing or shortness of breath. GASTROINTESTINAL: Denies changes in appetite, nausea, vomiting, diarrhea or constipation. GENITOURINARY: No history of frequency, urgency, hesitancy or nocturia. NEUROLOGIC: Denies history of numbness, tingling, or tremor. PSYCHIATRIC: No history of panic, anxiety or depression. ENDOCRINE: No history of heat or cold intolerance, polyuria or polydipsia. EXTREMITIES: Denies joint pain, pain on walking or stiffness. Physical Exam: Vital Signs: Vital Signs Date Time Temp Pulse Resp B/P (MAP) Pulse Ox O2 Delivery O2 Flow Rate FiO2 08/02/20 10:26 98.0 61 20 124/60 (81) 93 Room Air 98.0 Physcial Exam: GEN: No apparent distress. Alert and oriented HEENT: Normal cephalic, atraumatic, external auditory canals are patent EYES: Extraocular muscles are intact, pupil are equally round and reactive to light and accommodation MUSCULOSKELETAL: Well developed , well nourished, good range of motion ENDOCRINE: No thyromegaly was palpated LYMPHATICS: No cervical chain or axillary nodes were noted HEMATOPOIETIC: No bruising NECK: Supple, no JVD, no thyromegaly was noted LUNGS: Clear to auscultation in all lung collins without rhonchi or wheezing HEART: RRR, S!, S2 present. Peripheral pulses intact, no obvious murmurs noted ABDOMEN: Obese and nondistended. Soft, tender to palpation in the right periumbilical region. Positive bowel sounds, no organomegaly, normal bowel sounds EXTREMITIES: Without clubbing, cyanosis, or edema. Pedal pulses intact. Negative Homans sign NEUROLOGIC: Normal speech and tone. A&O x 3, moves all extremities, no obvious focal deficits PSYCHIATRIC: Normal affect, normal mood. Stable SKIN: No ulcerations or rashes, good skin turgor, no jaundice VASCULAR: Good capillary refill, neurovascular bundle appears to be intact Labs: Labs: Laboratory Tests Test 08/02/20 01:24 08/02/20 04:22 White Blood Count 10.2 x10^3/uL (4.0-11.0) Red Blood Count 4.74 x10^6/uL (4.30-5.70) Hemoglobin 14.5 g/dL (13.0-17.5) Hematocrit 43.1 % (39.0-53.0) Mean Corpuscular Volume 91 fL (79-100) Mean Corpuscular Hemoglobin 31 pg (25-35) Mean Corpuscular Hemoglobin Concent 34 g/dL (31-37) Red Cell Distribution Width 13.9 % (11.5-14.5) Platelet Count 130 x10^3/uL (140-400) Neutrophils (%) (Auto) 78 % (31-73) Lymphocytes (%) (Auto) 14 % (24-48) Monocytes (%) (Auto) 7 % (0-9) Eosinophils (%) (Auto) 1 % (0-3) Basophils (%) (Auto) 1 % (0-3) Neutrophils # (Auto) 8.0 x10^3/uL (1.8-7.7) Lymphocytes # (Auto) 1.4 x10^3/uL (1.0-4.8) Monocytes # (Auto) 0.7 x10^3/uL (0.0-1.1) Eosinophils # (Auto) 0.1 x10^3/uL (0.0-0.7) Basophils # (Auto) 0.1 x10^3/uL (0.0-0.2) Sodium Level 140 mmol/L (136-145) Potassium Level 4.7 mmol/L (3.5-5.1) Chloride Level 105 mmol/L (98-107) Carbon Dioxide Level 28 mmol/L (21-32) Anion Gap 7 (6-14) Blood Urea Nitrogen 27 mg/dL (8-26) Creatinine 2.1 mg/dL (0.7-1.3) Estimated GFR (Cockcroft-Gault) 30.9 BUN/Creatinine Ratio 13 (6-20) Glucose Level 126 mg/dL (70-99) Lactic Acid Level 0.9 mmol/L (0.4-2.0) Calcium Level 9.8 mg/dL (8.5-10.1) Total Bilirubin 0.5 mg/dL (0.2-1.0) Aspartate Amino Transf (AST/SGOT) 27 U/L (15-37) Alanine Aminotransferase (ALT/SGPT) 26 U/L (16-63) Alkaline Phosphatase 52 U/L (46-116) Total Protein 7.8 g/dL (6.4-8.2) Albumin 4.2 g/dL (3.4-5.0) Albumin/Globulin Ratio 1.2 (1.0-1.7) Lipase 172 U/L (73-393) SARS-CoV-2 Antigen (Rapid) Negative (NEGATIVE) Laboratory Tests Test 08/02/20 01:24 08/02/20 04:22 White Blood Count 10.2 x10^3/uL (4.0-11.0) Red Blood Count 4.74 x10^6/uL (4.30-5.70) Hemoglobin 14.5 g/dL (13.0-17.5) Hematocrit 43.1 % (39.0-53.0) Mean Corpuscular Volume 91 fL (79-100) Mean Corpuscular Hemoglobin 31 pg (25-35) Mean Corpuscular Hemoglobin Concent 34 g/dL (31-37) Red Cell Distribution Width 13.9 % (11.5-14.5) Platelet Count 130 x10^3/uL (140-400) Neutrophils (%) (Auto) 78 % (31-73) Lymphocytes (%) (Auto) 14 % (24-48) Monocytes (%) (Auto) 7 % (0-9) Eosinophils (%) (Auto) 1 % (0-3) Basophils (%) (Auto) 1 % (0-3) Neutrophils # (Auto) 8.0 x10^3/uL (1.8-7.7) Lymphocytes # (Auto) 1.4 x10^3/uL (1.0-4.8) Monocytes # (Auto) 0.7 x10^3/uL (0.0-1.1) Eosinophils # (Auto) 0.1 x10^3/uL (0.0-0.7) Basophils # (Auto) 0.1 x10^3/uL (0.0-0.2) Sodium Level 140 mmol/L (136-145) Potassium Level 4.7 mmol/L (3.5-5.1) Chloride Level 105 mmol/L (98-107) Carbon Dioxide Level 28 mmol/L (21-32) Anion Gap 7 (6-14) Blood Urea Nitrogen 27 mg/dL (8-26) Creatinine 2.1 mg/dL (0.7-1.3) Estimated GFR (Cockcroft-Gault) 30.9 BUN/Creatinine Ratio 13 (6-20) Glucose Level 126 mg/dL (70-99) Lactic Acid Level 0.9 mmol/L (0.4-2.0) Calcium Level 9.8 mg/dL (8.5-10.1) Total Bilirubin 0.5 mg/dL (0.2-1.0) Aspartate Amino Transf (AST/SGOT) 27 U/L (15-37) Alanine Aminotransferase (ALT/SGPT) 26 U/L (16-63) Alkaline Phosphatase 52 U/L (46-116) Total Protein 7.8 g/dL (6.4-8.2) Albumin 4.2 g/dL (3.4-5.0) Albumin/Globulin Ratio 1.2 (1.0-1.7) Lipase 172 U/L (73-393) SARS-CoV-2 Antigen (Rapid) Negative (NEGATIVE) Images: Images IMPRESSION: 1. Multiple dilated small bowel loops identified throughout the abdomen could be small bowel obstruction with mild inflammatory fat stranding identified about the terminal ileum could be secondary to ileitis. 2. Situs inversus. 2. Cholelithiasis. 4. Interval increase in size of the right anterior lateral abdominal wall ventral hernia now measuring 8.2 cm in transverse dimension containing omentum and fat minimal fluid within. Small midline ventral hernia is unchanged Assessment/Plan Assessment/Plan Acute abdominal pain due to partial SBO due to incarcerated bowel in right ventral hernia Thrombocytopenia WENDI due to vasomotor nephropathy History of CABG Dyslipidemia History of gastric lymphoma status post resection History of multiple ventral incisional hernia repairs Admit to medicine for further management Pending surgery evaluation N.p.o. with sips with meds Continue IV fluids Serial abdominal exams IV pain control Restart appropriate home medications, pending reconciliation Heparin for DVT prophylaxis ADA diet Full code Discussed with RN and SW Disposition pending surgical evaluation Surrogate decision maker is the Justifications for Admission Other Justification NUVIA JIMENEZ MD Aug 02, 2020 11:13
[2020-08-02] MEDS ORDERED: SENNOSIDES 8.6 MG TABLET PO PRN (11:15)
[2020-08-02] MEDS ORDERED: MAGNESIUM SULFATE 2GM 50 ML IV PRN (11:15)
[2020-08-02] MEDS ORDERED: ONDANSETRON PF 4 MG/2 ML VIAL. IVP PRN (11:15)
[2020-08-02] MEDS ORDERED: DEXTROSE 50% 25 GM / 50ML DISP.SYRIN. IV PRN (11:15)
[2020-08-02] MEDS ORDERED: DOCUSATE SODIUM 100 MG CAPSULE. PO PRN (11:15)
[2020-08-02] MEDS ORDERED: POTASSIUM CHLORIDE 10MEQ 100 ML IV PRN ×2 (11:15)
[2020-08-02] MEDS ORDERED: POTASSIUM CHLORIDE 20 MEQ TABLET.ER. PO PRN (11:15)
[2020-08-02 14:29] VITALS: BP 140/77
[2020-08-02 19:00] VITALS: BP 134/80
--- NOTE | 2020-08-02 20:18 | PDOC2 ---
CONSULT Date of Consult Date of Consult DATE: 08/02/20 TIME: 20:11 Reason for Consult Reason for Consult: SBO Referring Physician Referring Physician: Dr. Brownlee Identification/Chief Complaint Chief Complaint N/V abd pain Source Source: Chart review, Patient History of Present Illness Reason for Visit: SBO Past Medical History Cardiovascular: CAD, HTN, DE, Hyperlipidemia GI: GERD, Other Heme/Onc: Cancer Musculoskeletal: Osteoarthritis Past Surgical History Past Surgical History: Appendectomy, Cholecystectomy, CABG, Hernia Repair Family History Family History: No Significant, Heart Disease, Hypertension Social History ALCOHOL: none Drugs: None Current Problem List Problem List Problems Medical Problems: (1) Abdominal pain Status: Acute (2) SBO (small bowel obstruction) Status: Acute Current Medications Current Medications Current Medications Ondansetron HCl (Zofran) 4 mg 1X ONCE IVP Last administered on 08/02/20at 01:29; Start 08/02/20 at 01:30; Stop 08/02/20 at 01:31; Status DC Sodium Chloride 500 ml @ 500 mls/hr 1X ONCE IV ; Start 08/02/20 at 01:30; Stop 08/02/20 at 02:29; Status DC Morphine Sulfate (Morphine Sulfate) 4 mg 1X ONCE IV Last administered on 08/02/20at 01:29; Start 08/02/20 at 02:00; Stop 08/02/20 at 02:01; Status DC Iohexol (Omnipaque 240 Mg/ml) 30 ml 1X ONCE PO Last administered on 08/02/20at 02:43; Start 08/02/20 at 02:15; Stop 08/02/20 at 02:16; Status DC Info (CONTRAST GIVEN -- Rx MONITORING) 1 each PRN DAILY PRN MC SEE COMMENTS; Start 08/02/20 at 02:00; Stop 08/04/20 at 01:59 Sodium Chloride 1,000 ml @ 1,000 mls/hr 1X ONCE IV Last administered on 08/02/20at 01:29; Start 08/02/20 at 02:30; Stop 08/02/20 at 03:29; Status DC Morphine Sulfate (Morphine Sulfate) 4 mg 1X ONCE IV Last administered on 08/02/20at 02:42; Start 08/02/20 at 02:45; Stop 08/02/20 at 02:46; Status DC Ondansetron HCl (Zofran) 4 mg 1X ONCE IVP Last administered on 08/02/20at 0 2:44; Start 08/02/20 at 02:45; Stop 08/02/20 at 02:53; Status DC Ondansetron HCl (Zofran) 4 mg PRN Q8HRS PRN IV NAUSEA/VOMITING 1st choice; Start 08/02/20 at 04:00; Stop 08/02/20 at 12:06; Status DC Morphine Sulfate (Morphine Sulfate) 4 mg PRN Q2HR PRN IV SEVERE PAIN 7-10 Last administered on 08/02/20at 05:06; Start 08/02/20 at 04:00; Stop 08/03/20 at 03:59 Sodium Chloride 1,000 ml @ 125 mls/hr Q8H IV Last administered on 08/02/20at 19:27; Start 08/02/20 at 04:00; Stop 08/03/20 at 03:59 Heparin Sodium (Porcine) (Heparin Sodium) 5,000 unit Q12HR SQ ; Start 08/02/20 at 21:00 Sennosides (Senna) 17.2 mg PRN BID PRN PO CONSTIPATION; Start 08/02/20 at 11:15 Docusate Sodium (Colace) 100 mg PRN DAILY PRN PO HARD STOOLS; Start 08/02/20 at 11:15 Ondansetron HCl (Zofran) 4 mg PRN Q6HRS PRN IVP NAUSEA/VOMITING; Start 08/02/20 at 11:15 Potassium Chloride (Klor-Con) 40 meq 1X PRN PO PER PROTOCOL; Start 08/02/20 at 11:15 Magnesium Oxide (Magnesium Oxide) 400 mg PRN BID PRN PO FOR MAG <1.7; Start 08/02/20 at 21:00 Potassium Chloride/Water 100 ml @ 100 mls/hr Q1H PRN IV SEE COMMENTS; Start 08/02/20 at 11:15 Magnesium Sulfate 50 ml @ 25 mls/hr PRN DAILY PRN IV FOR MAG <1.7; Start 08/02/20 at 11:15 Potassium Chloride/Water 100 ml @ 100 mls/hr Q1H PRN IV low k; Start 08/02/20 at 11:15 Dextrose (Dextrose 50%-Water Syringe) 12.5 gm PRN Q15MIN PRN IV SEE COMMENTS; Start 08/02/20 at 11:15 Active Scripts Active Reported Eliquis (Apixaban) 5 Mg Tablet 5 Mg PO BID Aspirin 81 Mg Tab.chew 1 Tab PO DAILY Betapace (Sotalol Hcl) 80 Mg Tablet 80 Mg PO BID Lovastatin 20 Mg Tablet 20 Mg PO HS Ranitidine Hcl 300 Mg Capsule 300 Mg PO BID Allergies Allergies: Coded Allergies: meperidine HCl (Verified Allergy, Intermediate, 10/14/18) HYPOTENSION- "drops bp to 0?" sulfamethoxazole (Verified Allergy, Intermediate, 10/14/18) dizzy trimethoprim (Verified Allergy, Intermediate, 10/14/18) dizzy ROS Gastrointestinal: Yes Nausea, Yes Vomiting, Yes Abdominal Pain Physical Exam General: Alert, Oriented X3, Cooperative, No acute distress Abdomen: Soft, Other (palpable RUQ hernia, soft, well healed incision, min TTP) Extremities: No clubbing, No cyanosis Skin: No rashes, No breakdown Neuro: Normal speech, Sensation intact Psych/Mental Status: Mental status NL, Mood NL Vitals VITALS Vital Signs Date Time Temp Pulse Resp B/P (MAP) Pulse Ox O2 Delivery O2 Flow Rate FiO2 08/02/20 14:29 97.6 60 20 140/77 (98) 95 Room Air 97.6 Labs Labs Laboratory Tests Test 08/02/20 01:24 08/02/20 04:22 White Blood Count 10.2 x10^3/uL (4.0-11.0) Red Blood Count 4.74 x10^6/uL (4.30-5.70) Hemoglobin 14.5 g/dL (13.0-17.5) Hematocrit 43.1 % (39.0-53.0) Mean Corpuscular Volume 91 fL (79-100) Mean Corpuscular Hemoglobin 31 pg (25-35) Mean Corpuscular Hemoglobin Concent 34 g/dL (31-37) Red Cell Distribution Width 13.9 % (11.5-14.5) Platelet Count 130 x10^3/uL (140-400) Neutrophils (%) (Auto) 78 % (31-73) Lymphocytes (%) (Auto) 14 % (24-48) Monocytes (%) (Auto) 7 % (0-9) Eosinophils (%) (Auto) 1 % (0-3) Basophils (%) (Auto) 1 % (0-3) Neutrophils # (Auto) 8.0 x10^3/uL (1.8-7.7) Lymphocytes # (Auto) 1.4 x10^3/uL (1.0-4.8) Monocytes # (Auto) 0.7 x10^3/uL (0.0-1.1) Eosinophils # (Auto) 0.1 x10^3/uL (0.0-0.7) Basophils # (Auto) 0.1 x10^3/uL (0.0-0.2) Sodium Level 140 mmol/L (136-145) Potassium Level 4.7 mmol/L (3.5-5.1) Chloride Level 105 mmol/L (98-107) Carbon Dioxide Level 28 mmol/L (21-32) Anion Gap 7 (6-14) Blood Urea Nitrogen 27 mg/dL (8-26) Creatinine 2.1 mg/dL (0.7-1.3) Estimated GFR (Cockcroft-Gault) 30.9 BUN/Creatinine Ratio 13 (6-20) Glucose Level 126 mg/dL (70-99) Lactic Acid Level 0.9 mmol/L (0.4-2.0) Calcium Level 9.8 mg/dL (8.5-10.1) Total Bilirubin 0.5 mg/dL (0.2-1.0) Aspartate Amino Transf (AST/SGOT) 27 U/L (15-37) Alanine Aminotransferase (ALT/SGPT) 26 U/L (16-63) Alkaline Phosphatase 52 U/L (46-116) Total Protein 7.8 g/dL (6.4-8.2) Albumin 4.2 g/dL (3.4-5.0) Albumin/Globulin Ratio 1.2 (1.0-1.7) Lipase 172 U/L (73-393) SARS-CoV-2 Antigen (Rapid) Negative (NEGATIVE) Laboratory Tests Test 08/02/20 01:24 08/02/20 04:22 White Blood Count 10.2 x10^3/uL (4.0-11.0) Red Blood Count 4.74 x10^6/uL (4.30-5.70) Hemoglobin 14.5 g/dL (13.0-17.5) Hematocrit 43.1 % (39.0-53.0) Mean Corpuscular Volume 91 fL (79-100) Mean Corpuscular Hemoglobin 31 pg (25-35) Mean Corpuscular Hemoglobin Concent 34 g/dL (31-37) Red Cell Distribution Width 13.9 % (11.5-14.5) Platelet Count 130 x10^3/uL (140-400) Neutrophils (%) (Auto) 78 % (31-73) Lymphocytes (%) (Auto) 14 % (24-48) Monocytes (%) (Auto) 7 % (0-9) Eosinophils (%) (Auto) 1 % (0-3) Basophils (%) (Auto) 1 % (0-3) Neutrophils # (Auto) 8.0 x10^3/uL (1.8-7.7) Lymphocytes # (Auto) 1.4 x10^3/uL (1.0-4.8) Monocytes # (Auto) 0.7 x10^3/uL (0.0-1.1) Eosinophils # (Auto) 0.1 x10^3/uL (0.0-0.7) Basophils # (Auto) 0.1 x10^3/uL (0.0-0.2) Sodium Level 140 mmol/L (136-145) Potassium Level 4.7 mmol/L (3.5-5.1) Chloride Level 105 mmol/L (98-107) Carbon Dioxide Level 28 mmol/L (21-32) Anion Gap 7 (6-14) Blood Urea Nitrogen 27 mg/dL (8-26) Creatinine 2.1 mg/dL (0.7-1.3) Estimated GFR (Cockcroft-Gault) 30.9 BUN/Creatinine Ratio 13 (6-20) Glucose Level 126 mg/dL (70-99) Lactic Acid Level 0.9 mmol/L (0.4-2.0) Calcium Level 9.8 mg/dL (8.5-10.1) Total Bilirubin 0.5 mg/dL (0.2-1.0) Aspartate Amino Transf (AST/SGOT) 27 U/L (15-37) Alanine Aminotransferase (ALT/SGPT) 26 U/L (16-63) Alkaline Phosphatase 52 U/L (46-116) Total Protein 7.8 g/dL (6.4-8.2) Albumin 4.2 g/dL (3.4-5.0) Albumin/Globulin Ratio 1.2 (1.0-1.7) Lipase 172 U/L (73-393) SARS-CoV-2 Antigen (Rapid) Negative (NEGATIVE) Images Images terminal ileum with some inflammation Assessment/Plan Assessment/Plan SBO, enteritis cont bowel rest previous bowel obstructions resolved with conservative measures will ask GI to comment on enteritis if not improved, consider SBFT Thanks fro consult! AARTI JOSEPH MD Aug 02, 2020 20:18
[2020-08-02] MEDS ORDERED: MAGNESIUM OXIDE 400 MG TABLET PO PRN (21:00)
[2020-08-02] MEDS: HEPARIN for SUB-Q USE 5,000 UNIT/ML VIAL. SQ SCH (21:31)
[2020-08-02 23:00] VITALS: BP 117/69
[2020-08-03 03:00] VITALS: BP 132/74
[2020-08-03 03:37] LABS: BASO % 0 % (0-3); EOS # 0.2 x10^3/uL (0.0-0.7); EOS % 3 % (0-3); HEMATOCRIT 38.4 % (39.0-53.0); HEMOGLOBIN 12.9 g/dL (13.0-17.5); LYMPH # 1.5 x10^3/uL (1.0-4.8); LYMPH % 22 % (24-48); MEAN CORPUSCULAR HEMOGLOBIN 31 pg (25-35); MEAN CORPUSCULAR HGB CONC 34 g/dL (31-37); MEAN CORPUSCULAR VOLUME 92 fL (79-100); MONO # 0.9 x10^3/uL (0.0-1.1); MONO % 14 % (0-9); NEUT # 4.2 x10^3/uL (1.8-7.7); NEUT % 61 % (31-73); PLATELET COUNT 106 x10^3/uL (140-400); RED BLOOD COUNT 4.18 x10^6/uL (4.30-5.70); WHITE BLOOD COUNT 6.9 x10^3/uL (4.0-11.0)
[2020-08-03 03:52] LABS: CALCIUM 8.1 mg/dL (8.5-10.1); CREATININE 1.6 mg/dL (0.7-1.3); GFR 42.2; MAGNESIUM 1.8 mg/dL (1.8-2.4); PHOSPHORUS 2.3 mg/dL (2.6-4.7); POTASSIUM 4.2 mmol/L (3.5-5.1)
[2020-08-03 07:00] VITALS: BP 141/79
[2020-08-03] MEDS: HEPARIN for SUB-Q USE 5,000 UNIT/ML VIAL. SQ SCH ×2 (08:33→21:05)
--- NOTE | 2020-08-03 08:56 | EKG ---
[facility] [address] [place] [address] Test Date: 2020-08-02 Test Time: 01:30:28 Pat Name: GILLIAN CORRIGAN Department: Room: Gender: M Associate Dean: : 1945 Requested By: SAW ZAMBRANO Order Number: [id number] Reading MD: Measurements Intervals Boomer Rate: 60 P: 214 MI: 188 QRS: 131 QRSD: 94 T: 143 QT: 448 QTc: 453 Interpretive Statements SINUS RHYTHM ABNORMAL RIGHT AXIS DEVIATION QRS(T) CONTOUR ABNORMALITY CONSISTENT WITH ANTERIOR INFARCT AGE UNDETERMINED CONSISTENT WITH INFEROLATERAL INFARCT ABNORMAL ECG RI6.02 No previous ECG available for comparison
--- NOTE | 2020-08-03 09:56 | PDOC ---
SURGICAL PROGRESS NOTE DATE: 08/03/20 TIME: 09:55 Subjective abdomen is sore but overall improved no emesis + flatus Vital Signs Vital Signs Date Time Temp Pulse Resp B/P (MAP) Pulse Ox O2 Delivery O2 Flow Rate FiO2 08/03/20 08:21 Room Air 08/03/20 07:00 98.4 63 18 141/79 (99) 93 98.4 I&O Intake and Output 08/03/20 07:00 Intake Total 3315 ml Balance 3315 ml Intake Oral 940 ml IV Total 875 ml Other 1500 ml # Voids 3 General: Alert, Oriented X3, Cooperative Abdomen: Soft, Other (generalized ttp) Labs Laboratory Tests Test 08/02/20 01:24 08/02/20 04:22 08/03/20 02:40 White Blood Count 10.2 x10^3/uL (4.0-11.0) 6.9 x10^3/uL (4.0-11.0) Red Blood Count 4.74 x10^6/uL (4.30-5.70) 4.18 x10^6/uL (4.30-5.70) Hemoglobin 14.5 g/dL (13.0-17.5) 12.9 g/dL (13.0-17.5) Hematocrit 43.1 % (39.0-53.0) 38.4 % (39.0-53.0) Mean Corpuscular Volume 91 fL (79-100) 92 fL (79-100) Mean Corpuscular Hemoglobin 31 pg (25-35) 31 pg (25-35) Mean Corpuscular Hemoglobin Concent 34 g/dL (31-37) 34 g/dL (31-37) Red Cell Distribution Width 13.9 % (11.5-14.5) 14.0 % (11.5-14.5) Platelet Count 130 x10^3/uL (140-400) 106 x10^3/uL (140-400) Neutrophils (%) (Auto) 78 % (31-73) 61 % (31-73) Lymphocytes (%) (Auto) 14 % (24-48) 22 % (24-48) Monocytes (%) (Auto) 7 % (0-9) 14 % (0-9) Eosinophils (%) (Auto) 1 % (0-3) 3 % (0-3) Basophils (%) (Auto) 1 % (0-3) 0 % (0-3) Neutrophils # (Auto) 8.0 x10^3/uL (1.8-7.7) 4.2 x10^3/uL (1.8-7.7) Lymphocytes # (Auto) 1.4 x10^3/uL (1.0-4.8) 1.5 x10^3/uL (1.0-4.8) Monocytes # (Auto) 0.7 x10^3/uL (0.0-1.1) 0.9 x10^3/uL (0.0-1.1) Eosinophils # (Auto) 0.1 x10^3/uL (0.0-0.7) 0.2 x10^3/uL (0.0-0.7) Basophils # (Auto) 0.1 x10^3/uL (0.0-0.2) 0.0 x10^3/uL (0.0-0.2) Sodium Level 140 mmol/L (136-145) 140 mmol/L (136-145) Potassium Level 4.7 mmol/L (3.5-5.1) 4.2 mmol/L (3.5-5.1) Chloride Level 105 mmol/L (98-107) 107 mmol/L (98-107) Carbon Dioxide Level 28 mmol/L (21-32) 27 mmol/L (21-32) Anion Gap 7 (6-14) 6 (6-14) Blood Urea Nitrogen 27 mg/dL (8-26) 23 mg/dL (8-26) Creatinine 2.1 mg/dL (0.7-1.3) 1.6 mg/dL (0.7-1.3) Estimated GFR (Cockcroft-Gault) 30.9 42.2 BUN/Creatinine Ratio 13 (6-20) Glucose Level 126 mg/dL (70-99) 92 mg/dL (70-99) Lactic Acid Level 0.9 mmol/L (0.4-2.0) Calcium Level 9.8 mg/dL (8.5-10.1) 8.1 mg/dL (8.5-10.1) Total Bilirubin 0.5 mg/dL (0.2-1.0) Aspartate Amino Transf (AST/SGOT) 27 U/L (15-37) Alanine Aminotransferase (ALT/SGPT) 26 U/L (16-63) Alkaline Phosphatase 52 U/L (46-116) Total Protein 7.8 g/dL (6.4-8.2) Albumin 4.2 g/dL (3.4-5.0) Albumin/Globulin Ratio 1.2 (1.0-1.7) Lipase 172 U/L (73-393) SARS-CoV-2 Antigen (Rapid) Negative (NEGATIVE) Phosphorus Level 2.3 mg/dL (2.6-4.7) Magnesium Level 1.8 mg/dL (1.8-2.4) Laboratory Tests Test 08/03/20 02:40 White Blood Count 6.9 x10^3/uL (4.0-11.0) Red Blood Count 4.18 x10^6/uL (4.30-5.70) Hemoglobin 12.9 g/dL (13.0-17.5) Hematocrit 38.4 % (39.0-53.0) Mean Corpuscular Volume 92 fL (79-100) Mean Corpuscular Hemoglobin 31 pg (25-35) Mean Corpuscular Hemoglobin Concent 34 g/dL (31-37) Red Cell Distribution Width 14.0 % (11.5-14.5) Platelet Count 106 x10^3/uL (140-400) Neutrophils (%) (Auto) 61 % (31-73) Lymphocytes (%) (Auto) 22 % (24-48) Monocytes (%) (Auto) 14 % (0-9) Eosinophils (%) (Auto) 3 % (0-3) Basophils (%) (Auto) 0 % (0-3) Neutrophils # (Auto) 4.2 x10^3/uL (1.8-7.7) Lymphocytes # (Auto) 1.5 x10^3/uL (1.0-4.8) Monocytes # (Auto) 0.9 x10^3/uL (0.0-1.1) Eosinophils # (Auto) 0.2 x10^3/uL (0.0-0.7) Basophils # (Auto) 0.0 x10^3/uL (0.0-0.2) Sodium Level 140 mmol/L (136-145) Potassium Level 4.2 mmol/L (3.5-5.1) Chloride Level 107 mmol/L (98-107) Carbon Dioxide Level 27 mmol/L (21-32) Anion Gap 6 (6-14) Blood Urea Nitrogen 23 mg/dL (8-26) Creatinine 1.6 mg/dL (0.7-1.3) Estimated GFR (Cockcroft-Gault) 42.2 Glucose Level 92 mg/dL (70-99) Calcium Level 8.1 mg/dL (8.5-10.1) Phosphorus Level 2.3 mg/dL (2.6-4.7) Magnesium Level 1.8 mg/dL (1.8-2.4) Problem List Problems Medical Problems: (1) Abdominal pain Status: Acute (2) SBO (small bowel obstruction) Status: Acute Assessment/Plan d/w GI trial clears Justicifation of Admission Dx: Justifications for Admission: Justification of Admission Dx: Yes (Small bowel obstruction) SEEMA KHOURY [employer] CONSOLE OPERATOR Aug 03, 2020 09:56
--- NOTE | 2020-08-03 09:57 | NUR ---
SW following. Discussed with RN, pt from home, room air, NPO, COVID-19 negative. GI, surgery and cardiology following. PT/OT stating no therapy needs. SW will continue to follow for any discharge planning needs.
--- NOTE | 2020-08-03 10:30 | PDOC2 ---
GI CONSULT Date of Service: DATE: 08/03/20 TIME: 10:27 Reason For Consult: possible ileitis HPI: HPI: Very pleasant 74 y/o male who we have seen in the past. H/o lymphoma, multiple abdominal surgeries, and previous SBOs. This time, feeling well until Monday - ate a big dinner (1.5 anguiano and tomato sandwiches and some iced tea), then developed some soreness in right/middle abdomen and felt urge to have a bowel movement - just passed a small amount of stool. Abdominal "soreness" progressed, then started vomiting and came to ER. CT notes multiple dilated SB loops w/ mild inflammatory fat stranding about the terminal ileum. Additionally mentions increasing right anterior lateral abd wall ventral hernia and stable small midline ventral hernia. No h/o IBD. Half-sisters w/ colon cancer and Crohn's. Summary list includes ranitidine - says he doesn't take this. Does takes Eliquis and ASA. Additional h/o constipation controlled w/ Miralax BID. EGD 2006: reflux esophagitis (no Mclaughlin's, biopsy w/ healing ulceration) and duodenitis. Colonoscopy 2008: internal hemorrhoids. Last colonoscopy by Dr. 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 (No biopsy). Cholelithiasis on imaging. No liver, pancreas, or PUD history. No NSAIDs. B12 low (236) in 09/2018. No recurrent vomiting since arriving in room. Passing flatus but no stool. Tolerated Ensure last night. Abdomen still quite sore. PMH: PMH: situs inversus, CAD, [place], HTN, HLD, CKD, lymphoma w/ chemo/radiation cardiac stents, CABG, pacemaker, ventral hernia repari w/ mesh placement later and then drainage of abd wall seroma, MAURICE (twice?), appendectomy, removal of urethral mass, bilateral knee scopes, incisional hernia repair FH: Family History: Cancer (half sister - colon), Other (half-sister - Crohn's) Social History: Smoke: No ALCOHOL: none Drugs: None ROS: GEN: Denies fevers, chills, sweats HEENT: Denies blurred vision, sore throat CV: Denies chest pain RESP: Denies shortness of air, cough GI: Per HPI : Denies hematuria, dysuria ENDO: Denies weight changes NEURO: Denies confusion, dizziness MSK: Denies weakness, joint pain/swelling SKIN: Denies jaundice, pruritus Vitals: Vitals: Vital Signs Date Time Temp Pulse Resp B/P (MAP) Pulse Ox O2 Delivery O2 Flow Rate FiO2 08/03/20 08:21 Room Air 08/03/20 07:00 98.4 63 18 141/79 (99) 93 98.4 Labs: Labs: Laboratory Tests Test 08/03/20 02:40 White Blood Count 6.9 x10^3/uL (4.0-11.0) Red Blood Count 4.18 x10^6/uL (4.30-5.70) Hemoglobin 12.9 g/dL (13.0-17.5) Hematocrit 38.4 % (39.0-53.0) Mean Corpuscular Volume 92 fL (79-100) Mean Corpuscular Hemoglobin 31 pg (25-35) Mean Corpuscular Hemoglobin Concent 34 g/dL (31-37) Red Cell Distribution Width 14.0 % (11.5-14.5) Platelet Count 106 x10^3/uL (140-400) Neutrophils (%) (Auto) 61 % (31-73) Lymphocytes (%) (Auto) 22 % (24-48) Monocytes (%) (Auto) 14 % (0-9) Eosinophils (%) (Auto) 3 % (0-3) Basophils (%) (Auto) 0 % (0-3) Neutrophils # (Auto) 4.2 x10^3/uL (1.8-7.7) Lymphocytes # (Auto) 1.5 x10^3/uL (1.0-4.8) Monocytes # (Auto) 0.9 x10^3/uL (0.0-1.1) Eosinophils # (Auto) 0.2 x10^3/uL (0.0-0.7) Basophils # (Auto) 0.0 x10^3/uL (0.0-0.2) Sodium Level 140 mmol/L (136-145) Potassium Level 4.2 mmol/L (3.5-5.1) Chloride Level 107 mmol/L (98-107) Carbon Dioxide Level 27 mmol/L (21-32) Anion Gap 6 (6-14) Blood Urea Nitrogen 23 mg/dL (8-26) Creatinine 1.6 mg/dL (0.7-1.3) Estimated GFR (Cockcroft-Gault) 42.2 Glucose Level 92 mg/dL (70-99) Calcium Level 8.1 mg/dL (8.5-10.1) Phosphorus Level 2.3 mg/dL (2.6-4.7) Magnesium Level 1.8 mg/dL (1.8-2.4) Allergies: Coded Allergies: meperidine HCl (Verified Allergy, Intermediate, 10/14/18) HYPOTENSION- "drops bp to 0?" sulfamethoxazole (Verified Allergy, Intermediate, 10/14/18) dizzy trimethoprim (Verified Allergy, Intermediate, 10/14/18) dizzy Medications: Current Medications Medications (Trade) Dose Ordered Sig/Rosemary Route PRN Reason Start Time Stop Time Status Last Admin Dose Admin Heparin Sodium (Porcine) (Heparin Sodium) 5,000 unit Q12HR SQ 08/02/20 21:00 08/03/20 08:33 Imaging: Imaging: CT A/P 08/02 IMPRESSION: 1. Multiple dilated small bowel loops identified throughout the abdomen could be small bowel obstruction with mild inflammatory fat stranding identified about the terminal ileum could be secondary to ileitis. 2. Situs inversus. 2. Cholelithiasis. 4. Interval increase in size of the right anterior lateral abdominal wall ventral hernia now measuring 8.2 cm in transverse dimension containing omentum and fat minimal fluid within. Small midline ventral hernia is unchanged. PE: GEN: NAD HEENT: Atraumatic, PERRL LUNGS: CTAB HEART: RRR ABD: quiet BS, tender across mid abdomen, soft, hernia right of umbilicus EXTREMITY: No edema SKIN: No rashes, no jaundice NEURO/PSYCH: A & O 3 A/P: A/P: Abd pain, vomiting, change in bowel habits WENDI Chronic thrombocytopenia, h/o B12 deficiency Abnormal CT - multiple dilated SB loops w/ mild inflammatory fat stranding about the terminal ileum - similar findings on CT in 09/2018 H/o GERD CRC screen - UTD (07/2018) H/o constipation - controlled w/ Miralax Cholelithiasis FH (half-sisters) w/ colon cancer and Crohn's Situs inversus, h/o lymphoma and abd surgeries, h/o CAD on Eliquis and ASA, CKD Ventral hernia - increasing in size on CT Rapid COVID negative -- No recurrent vomiting and passing gas, tolerating Ensure. Still w/ some mid abdominal pain. Defer diet to surgery. Recheck B12. 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 No evidence of ileitis on last colonoscopy 07/2018 - could consider SBS or repeating colonoscopy w/ biopsy as outpt for further evaluation. EDWARD MANE Aug 03, 2020 10:29
[2020-08-03 11:00] VITALS: BP 142/80
[2020-08-03] MEDS ORDERED: FAMOTIDINE 20 MG TABLET. PO SCH (11:00)
[2020-08-03] MEDS: SOTALOL 80 MG TABLET. PO SCH ×2 (11:22→20:59)
[2020-08-03] MEDS: PANTOPRAZOLE 40 MG TABLET.DR. PO SCH (11:22)
--- NOTE | 2020-08-03 11:48 | PDOC ---
[employer] PROGRESS NOTE Date of Service DOS: DATE: 08/03/20 TIME: 11:47 Chief Complaint Chief Complaint abdominal pain CAD, situs inversus, SBO incisional hernia History of Present Illness History of Present Illness Pt seen and examined Pt sitting up in bed Pt has asked for cardio consult for chest discomfort DW RN Vitals/I&O Vitals/I&O: Vital Signs Date Time Temp Pulse Resp B/P (MAP) Pulse Ox O2 Delivery O2 Flow Rate FiO2 08/03/20 11:22 58 142/80 08/03/20 11:00 97.8 18 93 Room Air 97.8 I & O 08/02/20 08/02/20 08/03/20 15:00 23:00 07:00 Intake Total 0 ml 500 ml 2815 ml Balance 0 ml 500 ml 2815 ml Physical Exam General: Alert, Oriented X3, Cooperative Lungs: Clear Abdomen: Soft, Other (generalized ttp) Extremities: No clubbing, No cyanosis Skin: No rashes, No breakdown Labs Labs: Laboratory Tests Test 08/03/20 02:40 White Blood Count 6.9 x10^3/uL (4.0-11.0) Red Blood Count 4.18 x10^6/uL (4.30-5.70) Hemoglobin 12.9 g/dL (13.0-17.5) Hematocrit 38.4 % (39.0-53.0) Mean Corpuscular Volume 92 fL (79-100) Mean Corpuscular Hemoglobin 31 pg (25-35) Mean Corpuscular Hemoglobin Concent 34 g/dL (31-37) Red Cell Distribution Width 14.0 % (11.5-14.5) Platelet Count 106 x10^3/uL (140-400) Neutrophils (%) (Auto) 61 % (31-73) Lymphocytes (%) (Auto) 22 % (24-48) Monocytes (%) (Auto) 14 % (0-9) Eosinophils (%) (Auto) 3 % (0-3) Basophils (%) (Auto) 0 % (0-3) Neutrophils # (Auto) 4.2 x10^3/uL (1.8-7.7) Lymphocytes # (Auto) 1.5 x10^3/uL (1.0-4.8) Monocytes # (Auto) 0.9 x10^3/uL (0.0-1.1) Eosinophils # (Auto) 0.2 x10^3/uL (0.0-0.7) Basophils # (Auto) 0.0 x10^3/uL (0.0-0.2) Sodium Level 140 mmol/L (136-145) Potassium Level 4.2 mmol/L (3.5-5.1) Chloride Level 107 mmol/L (98-107) Carbon Dioxide Level 27 mmol/L (21-32) Anion Gap 6 (6-14) Blood Urea Nitrogen 23 mg/dL (8-26) Creatinine 1.6 mg/dL (0.7-1.3) Estimated GFR (Cockcroft-Gault) 42.2 Glucose Level 92 mg/dL (70-99) Calcium Level 8.1 mg/dL (8.5-10.1) Phosphorus Level 2.3 mg/dL (2.6-4.7) Magnesium Level 1.8 mg/dL (1.8-2.4) Vitamin B12 Level 270 pg/mL (247-911) Review of Systems Review of Systems: co chest discomfort co chest heaviness Assessment and Plan Assessmemt and Plan Problems Medical Problems: (1) Abdominal pain Status: Acute (2) SBO (small bowel obstruction) Status: Acut Assessment Abdominal pain Situs inversus Small bowel obstruction with incisional hernia CAD, Cancer, GERD, High Cholesterol, Hypertension, LYMPHOMA, SITIS INVERSUS, BOWEL OBSTRUCTION, INCISIONAL HERNIAS Appendectomy, Cancer Surgery, Coronary Bypass Surgery, Pacemaker, HEART CATH (SEVERAL) STENTS X'S 3, VENTERAL HERNIA, OPEN HEART Plan GI and Surgery consult pending Consult cardio for chest discomfort Continue home meds DVT prophylaxis DNR Comment Review of Relevant I have reviewed the following items mukul (where applicable) has been applied. Medications: Current Medications Medications (Trade) Dose Ordered Sig/Rosemary Route PRN Reason Start Time Stop Time Status Last Admin Dose Admin Heparin Sodium (Porcine) (Heparin Sodium) 5,000 unit Q12HR SQ 08/02/20 21:00 08/03/20 08:33 Sotalol HCl (Betapace) 80 mg BID PO 08/03/20 11:00 08/03/20 11:22 Pantoprazole Sodium (Protonix) 40 mg DAILYAC PO 08/03/20 11:30 08/03/20 11:22 Justifications for Admission Other Justification HÉCTOR NORTON III DO Aug 03, 2020 11:48
[2020-08-03] MEDS ORDERED: ELECTROLYTE (NON-ICU) PROTOCOL MC PRN (12:00)
[2020-08-03 15:00] VITALS: BP 147/84
[2020-08-03 19:00] VITALS: BP 137/80
[2020-08-03] MEDS: ATORVASTATIN CALCIUM 10 MG TABLET. PO SCH (20:59)
[2020-08-03 23:00] VITALS: BP 144/80
[2020-08-04 03:00] VITALS: BP 161/82
[2020-08-04 07:00] VITALS: BP 138/74
[2020-08-04] MEDS: PANTOPRAZOLE 40 MG TABLET.DR. PO SCH (07:30)
[2020-08-04] MEDS ORDERED: BARIUM SULFATE 60% 355 ML SUSP PO ONE ×2 (08:00)
[2020-08-04] MEDS: ASPIRIN CHEWABLE 81 MG TABLET. PO SCH (09:00)
[2020-08-04] MEDS: SOTALOL 80 MG TABLET. PO SCH ×2 (09:00→20:37)
--- NOTE | 2020-08-04 09:33 | PDOC ---
Date of Service: DATE: 08/04/20 TIME: 09:30 Objective: Vital Signs: Vital Signs Date Time Temp Pulse Resp B/P (MAP) Pulse Ox O2 Delivery O2 Flow Rate FiO2 08/04/20 07:00 98.6 58 18 138/74 (95) 95 Room Air 98.6 PE: out of room A/P: Abd pain, vomiting - better Abnormal CT - multiple dilated SB loops w/ mild inflammatory fat stranding about the terminal ileum - similar findings on CT in 09/2018; normal colonoscopy 07/2018 Situs inversus, ventral hernia, h/o lymphoma and abd surgeries CAD, CKD COVID negative -- Out for SBS, will follow. B12 borderline low - ?treat Justicifation of Admission Dx: Justifications for Admission: Justification of Admission Dx: Yes (Small bowel obstruction) EDWARD MANE Aug 04, 2020 09:33
--- NOTE | 2020-08-04 09:52 | NUR ---
SW following. Discussed with RN, pt having a small bowel series today. Pending result and decision from consults, Dr. Ulloa may discharge patient home today. [facility] will continue to follow.
--- NOTE | 2020-08-04 10:36 | PDOC ---
SEEMA KHOURY TOBACCO CHECKOUT CLERK 08/04/20 1036: SURGICAL PROGRESS NOTE DATE: 08/04/20 TIME: 10:35 Subjective some pain with palpation back from SBFT had been taking some clears Vital Signs Vital Signs Date Time Temp Pulse Resp B/P (MAP) Pulse Ox O2 Delivery O2 Flow Rate FiO2 08/04/20 07:00 98.6 58 18 138/74 (95) 95 Room Air 98.6 I&O Intake and Output 08/04/20 07:00 Intake Total 125 ml Balance 125 ml Intake Oral 0 ml IV Total 125 ml # Voids 2 General: Alert, Oriented X3, Cooperative Abdomen: Soft, Other (tender with palpation) Labs Laboratory Tests Test 08/03/20 02:40 White Blood Count 6.9 x10^3/uL (4.0-11.0) Red Blood Count 4.18 x10^6/uL (4.30-5.70) Hemoglobin 12.9 g/dL (13.0-17.5) Hematocrit 38.4 % (39.0-53.0) Mean Corpuscular Volume 92 fL (79-100) Mean Corpuscular Hemoglobin 31 pg (25-35) Mean Corpuscular Hemoglobin Concent 34 g/dL (31-37) Red Cell Distribution Width 14.0 % (11.5-14.5) Platelet Count 106 x10^3/uL (140-400) Neutrophils (%) (Auto) 61 % (31-73) Lymphocytes (%) (Auto) 22 % (24-48) Monocytes (%) (Auto) 14 % (0-9) Eosinophils (%) (Auto) 3 % (0-3) Basophils (%) (Auto) 0 % (0-3) Neutrophils # (Auto) 4.2 x10^3/uL (1.8-7.7) Lymphocytes # (Auto) 1.5 x10^3/uL (1.0-4.8) Monocytes # (Auto) 0.9 x10^3/uL (0.0-1.1) Eosinophils # (Auto) 0.2 x10^3/uL (0.0-0.7) Basophils # (Auto) 0.0 x10^3/uL (0.0-0.2) Sodium Level 140 mmol/L (136-145) Potassium Level 4.2 mmol/L (3.5-5.1) Chloride Level 107 mmol/L (98-107) Carbon Dioxide Level 27 mmol/L (21-32) Anion Gap 6 (6-14) Blood Urea Nitrogen 23 mg/dL (8-26) Creatinine 1.6 mg/dL (0.7-1.3) Estimated GFR (Cockcroft-Gault) 42.2 Glucose Level 92 mg/dL (70-99) Calcium Level 8.1 mg/dL (8.5-10.1) Phosphorus Level 2.3 mg/dL (2.6-4.7) Magnesium Level 1.8 mg/dL (1.8-2.4) Vitamin B12 Level 270 pg/mL (247-911) Problem List Problems Medical Problems: (1) Abdominal pain Status: Acute (2) SBO (small bowel obstruction) Status: Acute Assessment/Plan await SBFT Justicifation of Admission Dx: Justifications for Admission: Justification of Admission Dx: Yes (Small bowel obstruction) AARTI JOSEPH MD 08/04/200: SURGICAL PROGRESS NOTE Assessment/Plan Pt seen and examined. Agree with Ms. Khoury's note Pt feels better, passing stools abd soft will start clears SBFT looks good SEEMA KHOURY APRN Aug 04, 2020 10:36 AARTI JOSEPH MD Aug 04, 2020 21:40
[2020-08-04 11:00] VITALS: BP 144/89
--- NOTE | 2020-08-04 12:16 | PDOC2 ---
DANNI ESCOBAR MODERN GREEK STUDIES PROFESSOR 08/04/20 1216: CARDIAC CONSULT DATE OF CONSULT Date of Consult DATE: 08/04/20 TIME: 12:02 REASON FOR CONSULT Reason for Consult: Chest pain REFERRING PHYSICIAN Referring Physician: Laila SOURCE Source: Chart review, Patient HISTORY OF PRESENT ILLNESS HISTORY OF PRESENT ILLNESS This is a pleasant 74 yo male admitted for complains of abdominal pain and chest pain. His abdominal started this week and actually had some vomiting spells. He was then noted with partial bowel obstructions which is now resolved and is tolerating diet advancement. Reports that he has been having exertional chest pain and HOLLIDAY particularly during a flight of stairs and he has noticed this in the last month. He had diaphoresis but that was when he was dry heaving otherwise no arm or jaw discomfort or palpitations. No orthopnea, leg edema, or PND and has been complaint with his medications. No recent falls or injury. He tries to be active but he has been having chest discomfort and SOA with heavy exertion. PAST MEDICAL HISTORY Cardiovascular: AFIB, CAD, CHF, HTN, [place], Hyperlipidemia, Other (cardiomyopathy; situs inversus;SSS) Pulmonary: No pertinent hx CENTRAL NERVOUS SYSTEM: Other (No pertinent history) GI: GERD, Other (ventral hernia, SBO) Heme/Onc: Other (lymphoma) Hepatobiliary: Cholelithiasis Psych: No pertinent hx Musculoskeletal: Osteoarthritis Rheumatologic: No pertinent hx Infectious disease: No pertinent hx ENT: No pertinent hx Renal/: Other (nephrolithiasis) Endocrine: No pertinent hx Dermatology: No pertinent hx PAST SURGICAL HISTORY Past Surgical History: Pacemaker, Appendectomy, CABG (1984), Hernia Repair (multiple), Other (adhesion lysis; multiple PCI) FAMILY HISTORY Family History: Heart Disease (mother) SOCIAL HISTORY Smoke: No ALCOHOL: none Drugs: None Lives: Alone CURRENT MEDICATIONS CURRENT MEDICATIONS Current Medications Medications (Trade) Dose Ordered Sig/Rosemary Route PRN Reason Start Time Stop Time Status Last Admin Dose Admin Atorvastatin Calcium (Lipitor) 10 mg QHS PO 08/03/20 21:00 08/03/20 20:59 Barium Sulfate (Liquid E-Z Paque) 355 ml 1X ONCE PO 08/04/20 08:00 08/04/20 08:12 DC 08/04/20 08:15 Barium Sulfate (Liquid E-Z Paque) 355 ml 1X ONCE PO 08/04/20 08:00 08/04/20 08:12 DC 08/04/20 08:15 ALLERGIES ALLERGIES: Coded Allergies: meperidine HCl (Verified Allergy, Intermediate, 10/14/18) HYPOTENSION- "drops bp to 0?" sulfamethoxazole (Verified Allergy, Intermediate, 10/14/18) dizzy trimethoprim (Verified Allergy, Intermediate, 10/14/18) dizzy ROS Review of System 14 point ROS evaluated with pertinent positives noted per HPI PHYSICAL EXAM General: Alert, Oriented X3, Cooperative, No acute distress HEENT: Atraumatic, Mucous membr. moist/pink Lungs: Clear to auscultation Heart: Regular rate (SR), Normal S1, Normal S2, Other (3/6 systolic murmur to RLS border) Abdomen: Soft, No tenderness Extremities: No cyanosis, No edema Skin: No breakdown, No significant lesion Neuro: Normal speech, Sensation intact Psych/Mental Status: Mental status NL, Mood NL MUSCULOSKELETAL: Osteoarthritic changes both hands VITALS/I&O VITALS/I&O: Vital Signs Date Time Temp Pulse Resp B/P (MAP) Pulse Ox O2 Delivery O2 Flow Rate FiO2 08/04/20 11:00 98.2 60 18 144/89 (107) 97 Room Air 98.2 I & O 08/03/20 08/03/20 08/04/20 15:00 23:00 07:00 Intake Total 125 ml Balance 125 ml LABS Lab: Laboratory Tests Test 08/04/20 10:30 Troponin I Quantitative 0.094 ng/mL (0.000-0.055) ECHOCARDIOGRAM ECHOCARDIOGRAM <Conclusion> Left ventricle systolic function is mildly impaired. The Ejection Fraction is 45-50%. Apical motion consistent with pacemaker activation. Mild global hypokinesis. There is a pacemaker lead in the right ventricle. DATE: 01/21/20 1354 STRESS TEST STRESS TEST Conclusion 1. Regadenoson cardioisotope stress test showed large infarct involving inferior and inferolateral fuentes and extending into the basal lateral wall without any ischemia. 2. Base to mid inferior and inferolateral wall hypokinesis with ejection fraction calculated at 40%. 3. Low to intermediate risk for cardiac events. DATE: 02/19/19 1312 ASSESSMENT/PLAN ASSESSMENT/PLAN 1. Abdominal pain with partial SBO: appears resolved. Awaiting input from GS. prior hx of multiple ventral hernia and adhesions 2. Chest pain: typical features 3. Situs inversus 4. CAD: CABG and PCIs in the past 5. PPM in situ: [place] 6. PAFIB: not on tele, regular rate. 7. HTN: controlled 8. HLP 9. Cardiomyopathy: prior EF at 45-50% compensated 10. Suspect CKD3 Recommendations Troponin, lipids, EKG. Limited TTE Will interrogate device Positive for exertional CP and dyspnea. Ischemic workup pending above. Secondary prevention measures. Sotalol for rhythm maintenance. ASA, hold eliquis and will resume prior to DC Will transfer to monitored bed MIQUEL ROLLE MD 08/04/202023: CARDIAC CONSULT ASSESSMENT/PLAN ASSESSMENT/PLAN The patient was seen and interviewed as well as examined at the bedside. The chart was reviewed. The case was discussed. Agree with the plan of care. DANNI ESCOBAR APRN Aug 04, 2020 12:16 MIQUEL ROLLE MD Aug 04, 2020 20:24
--- NOTE | 2020-08-04 12:18 | PDOC ---
[facility] PROGRESS NOTE Date of Service DOS: DATE: 08/04/20 TIME: 12:11 Chief Complaint Chief Complaint Abdominal pain CAD, situs inversus, SBO with incisional hernia History of Present Illness History of Present Illness Pt was seen and examined Pt stated he was feeling better SBFT pending DW foster care case manager RICKY RN Vitals/I&O Vitals/I&O: Vital Signs Date Time Temp Pulse Resp B/P (MAP) Pulse Ox O2 Delivery O2 Flow Rate FiO2 08/04/20 11:00 98.2 60 18 144/89 (107) 97 Room Air 98.2 I & O 08/03/20 08/03/20 08/04/20 15:00 23:00 07:00 Intake Total 125 ml Balance 125 ml Physical Exam General: Alert, Oriented X3, Cooperative Lungs: Clear Abdomen: Soft, Other (tender with palpation) Extremities: No clubbing, No cyanosis Skin: No rashes, No breakdown Labs Labs: Laboratory Tests Test 08/04/20 10:30 Troponin I Quantitative 0.094 ng/mL (0.000-0.055) Review of Systems Review of Systems: No dizziness No N/V Assessment and Plan Assessmemt and Plan Problems Medical Problems: (1) Abdominal pain Status: Acute (2) SBO (small bowel obstruction) Status: Acute Plan: 1) Await SBFT and probable discharge if negative and patient can eat 2) DNR 3) home meds 4) DVT prophylaxis 5) appreciate subspecialty input Comment Review of Relevant I have reviewed the following items mukul (where applicable) has been applied. Medications: Current Medications Medications (Trade) Dose Ordered Sig/Rosemary Route PRN Reason Start Time Stop Time Status Last Admin Dose Admin Atorvastatin Calcium (Lipitor) 10 mg QHS PO 08/03/20 21:00 08/03/20 20:59 Barium Sulfate (Liquid E-Z Paque) 355 ml 1X ONCE PO 08/04/20 08:00 08/04/20 08:12 DC 08/04/20 08:15 Barium Sulfate (Liquid E-Z Paque) 355 ml 1X ONCE PO 08/04/20 08:00 08/04/20 08:12 DC 08/04/20 08:15 Justifications for Admission Other Justification CASTLE,NIAL K III DO Aug 04, 2020 12:18
[2020-08-04] MEDS: HEPARIN for SUB-Q USE 5,000 UNIT/ML VIAL. SQ SCH ×2 (13:25→20:40)
--- NOTE | 2020-08-04 13:30 | RAD ---
EXAM: SMALL BOWEL FOLLOW-THROUGH. HISTORY: Small bowel obstruction. Ileitis.. COMPARISON: Abdomen pelvis CT with oral contrast of 08/02/2020. FINDINGS: A local city driver image was obtained. Patient has situs inversus. Barium contrast material was administered orally and followed in its course through the stomach, small bowel and proximal colon with fluoroscopy and plain radiographs. 2 fluoroscopic images were obtained. Fluoroscopy time 90 seconds. The local city driver image demonstrates a nonobstructive bowel gas pattern. There is some residual contrast material in the large bowel from oral contrast ingestion 2 days prior. There are no distended small bowel loops. No strictures are seen. The small bowel fold pattern is unremarkable. Transit time was normal at 45 minutes (normal <2 hours.) The patient was tender during spot fluoroscopic the in the left lower quadrant abdomen. It is acknowledged that soft tissue stranding in the mesentery was present on the CT of 2 days prior in this area as well. IMPRESSION: 1. No findings of small bowel obstruction and no fluoroscopic imaging findings of bowel inflammation currently. 2. Situs inversus. Electronically signed by: Chacorta Yousif MD (08/04/2020 1:27 PM) [id number]
--- NOTE | 2020-08-04 13:51 | EKG ---
[facility] [address] [place] [address] Test Date: 2020-08-04 Test Time: 13:47:28 Pat Name: GILLIAN CORRIGAN Department: Room: 434 1 Gender: M Geology Professor: CAS : 1945 Requested By: DANNI ESCOBAR Order Number: [id number] Reading MD: Measurements Intervals [place] Rate: 61 P: MO: QRS: 56 QRSD: 92 T: -76 QT: 444 QTc: 453 Interpretive Statements IRREGULAR RHYTHM, NO P-WAVE FOUND T ABNORMALITY IN INFERIOR LEADS ABNORMAL ECG RI6.02 Compared to ECG 08/02/2020 01:30:28 T-wave abnormality now present Sinus rhythm no longer present Right-axis deviation no longer present Myocardial infarct finding no longer present
[2020-08-04 15:00] VITALS: BP 164/92
[2020-08-04 15:16] LABS: CHOLESTEROL/HDL RATIO 3.6
--- NOTE | 2020-08-04 19:30 | NUR ---
Transferred from room 434 to [facility] room 244 via WC. Alert x 4 and Ambulatory with steady gait on arrival. Pleasant. Denies pain. Orientated to room and call light. Verbalized understanding. Resting in bed with call light at hand watching TV. j
[2020-08-04 19:57] VITALS: BP 182/86
[2020-08-04] MEDS: ATORVASTATIN CALCIUM 10 MG TABLET. PO SCH (20:37)
[2020-08-04 23:02] VITALS: BP 138/85
[2020-08-05 03:26] VITALS: BP 177/87
[2020-08-05 07:00] VITALS: BP 151/85
--- NOTE | 2020-08-05 08:36 | PDOC ---
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 08/04: SBFT no clear obstruction Transferred to CVC for closer monitoring given his elevated troponin. Planned for limited echo today. No CP or SOB. He is in good spirits. Vitals/I&O Vitals/I&O: Vital Signs Date Time Temp Pulse Resp B/P (MAP) Pulse Ox O2 Delivery O2 Flow Rate FiO2 08/05/20 03:26 97.6 60 18 177/87 (117) 93 Room Air 97.6 I & O 08/04/20 08/04/20 08/05/20 15:00 23:00 07:00 Intake Total 0 ml 0 ml 0 ml Balance 0 ml 0 ml 0 ml Physical Exam General: Alert, Oriented X3, Cooperative, No acute distress Heart: Regular rate (SR), Normal S1, Normal S2, Other (3/6 systolic murmur to RLS border) Lungs: Clear Abdomen: Soft, No tenderness Extremities: No cyanosis, No edema Skin: No breakdown, No significant lesion Labs Labs: Laboratory Tests Test 08/04/20 10:30 08/04/20 15:00 Troponin I Quantitative 0.094 ng/mL (0.000-0.055) 0.084 ng/mL (0.000-0.055) Triglycerides Level 112 mg/dL (0-150) Cholesterol Level 133 mg/dL (0-200) LDL Cholesterol, Calculated 74 mg/dL (0-100) VLDL Cholesterol, Calculated 22 mg/dL (0-40) Non-HDL Cholesterol Calculated 96 mg/dL (0-129) HDL Cholesterol 37 mg/dL (40-60) Cholesterol/HDL Ratio 3.6 Assessment and Plan Assessmemt and Plan Problems Medical Problems: (1) Abdominal pain Status: Acute (2) SBO (small bowel obstruction) Status: Acute Comment Review of Relevant I have reviewed the following items mukul (where applicable) has been applied. Justifications for Admission Other Justification MARLON DINERO MD Aug 05, 2020 08:36
[2020-08-05] MEDS ORDERED: CYANOCOBALAMIN (VITAMIN B-12) 1,000 MCG/ML VIAL IM ONE (08:45)
[2020-08-05] MEDS: HEPARIN for SUB-Q USE 5,000 UNIT/ML VIAL. SQ SCH (09:59)
--- NOTE | 2020-08-05 10:06 | NUR ---
SS following for discharge planning. SS reviewed pt chart and discussed with pt RN. Pt is from home and is currently on room air. COVID19 negative. Cardiology consulted. SS will continue to follow for discharge planning.
[2020-08-05] MEDS: SOTALOL 80 MG TABLET. PO SCH (10:29)
[2020-08-05] MEDS: PANTOPRAZOLE 40 MG TABLET.DR. PO SCH (10:29)
[2020-08-05] MEDS: ASPIRIN CHEWABLE 81 MG TABLET. PO SCH (10:29)
--- NOTE | 2020-08-05 10:33 | PDOC ---
IRAIDASEEMA Graves ACCOUNTS PAYABLE SUPERVISOR 08/05/20 1033: SURGICAL PROGRESS NOTE DATE: 08/05/20 TIME: 10:33 Subjective he feels much better minimal pain passing barium Vital Signs Vital Signs Date Time Temp Pulse Resp B/P (MAP) Pulse Ox O2 Delivery O2 Flow Rate FiO2 08/05/20 10:29 60 150/88 08/05/20 08:00 Room Air 08/05/20 07:00 97.6 18 96 97.6 I&O Intake and Output 08/05/20 07:00 Intake Total 0 ml Balance 0 ml Intake Oral 0 ml # Voids 1 General: Alert, Oriented X3, Cooperative Abdomen: Soft, No tenderness Labs Laboratory Tests Test 08/04/20 10:30 08/04/20 15:00 Troponin I Quantitative 0.094 ng/mL (0.000-0.055) 0.084 ng/mL (0.000-0.055) Triglycerides Level 112 mg/dL (0-150) Cholesterol Level 133 mg/dL (0-200) LDL Cholesterol, Calculated 74 mg/dL (0-100) VLDL Cholesterol, Calculated 22 mg/dL (0-40) Non-HDL Cholesterol Calculated 96 mg/dL (0-129) HDL Cholesterol 37 mg/dL (40-60) Cholesterol/HDL Ratio 3.6 Laboratory Tests Test 08/04/20 15:00 Troponin I Quantitative 0.084 ng/mL (0.000-0.055) Problem List Problems Medical Problems: (1) Abdominal pain Status: Acute (2) SBO (small bowel obstruction) Status: Acute Assessment/Plan ok for advancing diet after any cardiac procedures planned Justicifation of Admission Dx: Justifications for Admission: Justification of Admission Dx: Yes (Small bowel obstruction) AARTI JOSEPH MD 08/05/20 1332: SURGICAL PROGRESS NOTE Assessment/Plan Pt seen and examined. Agree with Ms. Us's note Pt feels better, alex diet, passing stools denies pain. ADAT. SEEMA US APRN Aug 05, 2020 10:33 AARTI JOSEPH MD Aug 05, 2020 13:32
--- NOTE | 2020-08-05 10:40 | CARD ---
MR#: [id number] Date of Study: 08/04/2020 Ordering Physician: DANNI ESCOBAR, Referring Physician: DANNI ESCOBAR, Tech: Annamarie Morris YVROSE APPROVED REPORT EXAM: LIMITED Two-dimensional echocardiogram Other Information Quality : Good INDICATION Chest Pain Dextracardia with Situs Inversus, Pacemaker LEFT VENTRICLE Left ventricle systolic function is mildly impaired. The Ejection Fraction is 40-45%. Apical motion c onsistent with pacemaker activation. RIGHT VENTRICLE There is a pacemaker lead in the right ventricle. ATRIA A pacemaker is seen in the right atrium consistent with history. PERICARDIAL EFFUSION There is no evidence of significant pericardial effusion. Critical Notification Critical Value: No <Conclusion> Left ventricle systolic function is mildly impaired. The Ejection Fraction is 40-45%. Pacer lead noted RA/RV. There is no evidence of significant pericardial effusion. Signed by : Derrick Foley, Electronically Approved : 08/05/2020 10:40:09
[2020-08-05 11:00] VITALS: BP 150/88
--- NOTE | 2020-08-05 11:35 | PDOC ---
Date of Service: DATE: 08/05/20 TIME: 11:32 Subjective: Subjective: Tolerating advanced diet - little soreness mid abdomen after eating but no n/v. Stooling - lots of barium. Says plans to have outpt stress test. Objective: Vital Signs: Vital Signs Date Time Temp Pulse Resp B/P (MAP) Pulse Ox O2 Delivery O2 Flow Rate FiO2 08/05/20 11:00 97.7 62 18 150/88 (108) 94 Room Air 97.7 Labs: Laboratory Tests Test 08/04/20 15:00 Troponin I Quantitative 0.084 ng/mL Imaging: SBS 08/04 IMPRESSION: 1. No findings of small bowel obstruction and no fluoroscopic imaging findings of bowel inflammation currently. 2. Situs inversus. Echo 08/04 <Conclusion> Left ventricle systolic function is mildly impaired. The Ejection Fraction is 40-45%. Pacer lead noted RA/RV. There is no evidence of significant pericardial effusion. PE: GEN: NAD LUNGS: CTAB HEART: RRR ABD: quiet BS, non-tender NEURO/PSYCH: A & O 3 A/P: Recurrent SBO - SBS as above Situs inversus, ventral hernia, h/o lymphoma and abd surgeries CAD, CKD, mildly elevated troponin -- DC per primary, follow-up w/ cardiology as planned. Note B12 given. Follow-up w/ GI PRN. Justicifation of Admission Dx: Justifications for Admission: Justification of Admission Dx: Yes (Small bowel obstruction) EDWARD MANE Aug 05, 2020 11:35
--- NOTE | 2020-08-05 12:17 | PDOC ---
DANNI ESCOBAR ENDLESS BELT FINISHER 08/05/20 1217: CARDIO Progress Notes Date and Time Date of Service 08/05/2020 Time of Evaluation 0955 Subjective Subjective: No Chest Pain, No shortness of breath, No Palpitations Vitals Vitals Vital Signs Date Time Temp Pulse Resp B/P (MAP) Pulse Ox O2 Delivery O2 Flow Rate FiO2 08/05/20 11:00 97.7 62 18 150/88 (108) 94 Room Air 97.7 Weight Weight [ ] Input and Output Intake and Output Intake and Output 08/05/20 07:00 Intake Total 0 ml Balance 0 ml Intake Oral 0 ml # Voids 1 Laboratory Labs Laboratory Tests Test 08/04/20 15:00 Troponin I Quantitative 0.084 ng/mL (0.000-0.055) Physical Exam HEENT: Neck Supple W Full Motion Chest: Symmetric LUNGS: Clear to Auscultation Heart: S1S2, RRR (SR no ectopies) Abdomen: Soft N/T Extremities: No Calf Tenderness Neurology: alert, oriented, follow commands Assessment Assessment 1. Abdominal pain with partial SBO: appears resolved. prior hx of multiple ventral hernia and adhesions 2. Chest pain: typical features at home presently no symptoms. peaked at 0.09, possibly demand mediated and with associated renal insufficiency. No acute EKG changes 3. Situs inversus 4. CAD: CABG and PCIs in the past 5. PPM in situ: [place] No arrhythmias. device function nml. AFIB burden<1% 6. PAFIB: not on tele, regular rate. 7. HTN: controlled 8. HLP 9. Cardiomyopathy: EF at 40-45% close to previous reading 10. Suspect CKD3 Recommendations MPI next week. Follow up in office September [address] Rolle.at [place] Secondary prevention measures. Sotalol for rhythm maintenance. ASA, Resume eliquis when clear with GS/GI Consider ACEi/ARB. Anticipate DC today Justicifation of Admission Dx: Justifications for Admission: Justification of Admission Dx: Yes (Small bowel obstruction) MIQUEL ROLLE MD 08/06/20 1155: CARDIO Progress Notes Plan Plan Late entry for 08/05/2020 Patient seen and examined. Agree with above nurse practitioner note. DANNI ESCOBAR ENDLESS BELT FINISHER Aug 05, 2020 12:17 MIQUEL ROLLE MD Aug 06, 2020 11:55
--- NOTE | 2020-08-05 14:49 | NUR ---
Discharge Note: GILLIAN CORRIGAN [address] Discharge instructions and discharge home medications reviewed with patient and a copy given. All questions have been answered and understanding verbalized. The following instructions and handouts were given: Take home meds as directed. restart eliquis Stress test on Aug 12 at 0745 at [facility]. Cardiology follow up on Sep 02, [address] [facility]. FOllow up with PCP as needed. Watch out for severe abdominal pain, nausea, vomiting, and severe weakness. Discontinued lines and drains: peripheral IV intact, patient tolerated removal, no complications noted. Patient discharged to home via wheelchair accompanied by patient's spouse at 1425.
--- NOTE | 2020-08-06 06:53 | PDOC3 ---
Discharge Summary Visit Information Date of Admission: Aug 02, 2020 Date of Discharge: Aug 05, 2020 Admitting Diagnosis: SBO Final Diagnosis Problems Medical Problems: (1) Abdominal pain Status: Acute (2) SBO (small bowel obstruction) Status: Acute Brief Hospital Course Allergies Allergies Coded Allergies Type Severity Reaction Last Updated Verified meperidine HCl Allergy Intermediate 10/14/18 Yes sulfamethoxazole Allergy Intermediate 10/14/18 Yes trimethoprim Allergy Intermediate 10/14/18 Yes Vital Signs Vital Signs Date Time Temp Pulse Resp B/P (MAP) Pulse Ox O2 Delivery O2 Flow Rate FiO2 08/05/20 11:00 97.7 62 18 150/88 (108) 94 Room Air 97.7 Lab Results Laboratory Tests Test 08/04/20 10:30 08/04/20 15:00 Troponin I Quantitative 0.094 ng/mL (0.000-0.055) 0.084 ng/mL (0.000-0.055) Triglycerides Level 112 mg/dL (0-150) Cholesterol Level 133 mg/dL (0-200) LDL Cholesterol, Calculated 74 mg/dL (0-100) VLDL Cholesterol, Calculated 22 mg/dL (0-40) Non-HDL Cholesterol Calculated 96 mg/dL (0-129) HDL Cholesterol 37 mg/dL (40-60) Cholesterol/HDL Ratio 3.6 Brief Hospital Course Mr Mccullough is a 74 yo male w/ PMHx situs inversus, 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 08/04: SBFT no clear obstruction. trialed on clears after NPO for 48 hours. Transferred to CVC for closer monitoring given his elevated troponin. No CP or SOB. He is in good spirits. Left ventricle systolic function is mildly impaired. The Ejection Fraction is 40-45%. Pacer lead noted RA/RV. There is no evidence of significant pericardial effusion. Consults: Cardiology, GI, General surgery. Problem list: Abdominal pain CAD s/p CABG Situs inversus SBO with incisional hernia GERD High Cholesterol Hypertension h/o lymphoma s/p sx removal h/o multiple abd sx sam, vasomotor nephropathy SSS s/p PPM Greater than 30 minutes spent on d/c home Discharge Information Condition at Discharge: Improved Follow Up: Weeks (1) Disposition/Orders: D/C to Home Scheduled Apixaban (Eliquis) 5 Mg Tablet, 5 MG PO BID for BLOOD THINNER, (Reported) Entered as Reported by: ANNIE RODRIGUEZ on 08/02/20304 Last Action: New Order on 08/02/20304 by ANNIE RODRIGUEZ Aspirin (Aspirin) 81 Mg Tab.chew, 1 TAB PO DAILY for RI PREVENTION, #30 Ref 3 (Reported) Entered as Reported by: ANNIE RODRIGUEZ on 08/02/20304 Last Action: Continued on 08/03/20 1028 by JUANY RIDLEY RN Lovastatin (Lovastatin) 20 Mg Tablet, 20 MG PO HS, (Reported) Entered as Reported by: TAHIR MORENO on 01/23/14 1304 Last Action: Converted on 08/03/20 1028 by JUANY RIDLEY RN Ranitidine Hcl (Ranitidine Hcl) 300 Mg Capsule, 300 MG PO BID, (Reported) Entered as Reported by: TAHIR MORENO on 01/23/14 1304 Last Action: Converted on 08/03/20 1028 by JUANY RIDLEY RN Sotalol Hcl (Betapace) 80 Mg Tablet, 80 MG PO BID, (Reported) Entered as Reported by: GAURAV SMALL on 11/01/15 1341 Last Action: Continued on 08/03/20 1028 by JUANY RIDLEY RN Justicifation of Admission Dx: Justifications for Admission: Justification of Admission Dx: Yes (Small bowel obstruction) MARLON DINERO MD Aug 06, 2020 06:53
--- NOTE | 2020-08-09 14:03 | DS ---
DATE OF DISCHARGE: 08/05/2020 ADMISSION DIAGNOSIS: Small bowel obstruction. DISCHARGE DIAGNOSIS: Resolving small bowel obstruction. HOSPITAL COURSE: The patient is a pleasant 74-year-old male, who has a previous history of abdominal surgeries and previous obstructions. Basically, he was admitted for a small bowel obstruction. We consulted GI and General Surgery. We did a small bowel follow-through. Things seemed to resolve on their own. We advanced his diet and discharged to home. DISPOSITION: Home. ACTIVITY: As tolerated. DIET: Low sodium. MEDICATIONS: Please see the MRAD. TOTAL TIME: 34 minutes. BAILEYL Yessica NORTON DO DR: KATIA/elida JOB#: [id number] / [id number]
== END 2020-08-05 14:25 | disposition home or self-care (01) | DRG 393 ==
LOC: ER 01:01 → 4 NORTH 04:12 → 2 SOUTH 08-04 19:30
PROVIDERS: ADMIT Family Medicine; ATTEND Family Medicine
DX: K43.0 Incisional hernia with obstruction, without gangrene (principal); N17.0 Acute kidney failure with tubular necrosis; C85.90 Non-Hodgkin lymphoma, unspecified, unspecified site; I13.0 Hypertensive heart and chronic kidney disease with heart failure and stage 1 through stage 4 chronic kidney disease, or unspecified chronic kidney disease; I42.8 Other cardiomyopathies; Q89.3 Situs inversus; Z20.828 Contact with and (suspected) exposure to other viral communicable diseases; D69.6 Thrombocytopenia, unspecified; E78.00 Pure hypercholesterolemia, unspecified; E78.5 Hyperlipidemia, unspecified; I25.10 Atherosclerotic heart disease of native coronary artery without angina pectoris; M19.90 Unspecified osteoarthritis, unspecified site; I48.0 Paroxysmal atrial fibrillation; I49.5 Sick sinus syndrome; I50.9 Heart failure, unspecified; K21.0 Gastro-esophageal reflux disease with esophagitis; K52.9 Noninfective gastroenteritis and colitis, unspecified; K64.8 Other hemorrhoids; K80.20 Calculus of gallbladder without cholecystitis without obstruction; N18.9 Chronic kidney disease, unspecified; Z80.0 Family history of malignant neoplasm of digestive organs; Z82.49 Family history of ischemic heart disease and other diseases of the circulatory system; Z87.442 Personal history of urinary calculi; Z87.891 Personal history of nicotine dependence; Z90.49 Acquired absence of other specified parts of digestive tract; Z95.0 Presence of cardiac pacemaker; Z95.1 Presence of aortocoronary bypass graft; Z95.5 Presence of coronary angioplasty implant and graft; Z88.8 Allergy status to other drugs, medicaments and biological substances
CPT/HCPCS: 36415; 74176; 74250; 80048; 80053; 80061; 82607; 83605; 83690; 83735; 84100; 84484; 85025; 87426; 93005; 93308; 96361; 96374; 96375; 96376; J1644; J2270; J2405; J3420; J7030; J7040; Q9966; 99285-25; G0378; U0003-CS

== ENCOUNTER 2020-12-23 15:31 | Inpatient (IN) | payer MEDICARE ==
[~2020-12-23] VITALS: Ht 190.5 cm; Wt 103.1 kg
[~2020-12-23 15:31] MED LIST changes: +APIX5TAB PO; +ASPI-630 PO
[2020-12-23] MEDS ORDERED: IV NORMAL SALINE 1000ML BAG 1,000 ML IV ONE (16:30)
[2020-12-23] MEDS ORDERED: MORPHINE SULFATE 4 MG/ML VIAL. IV ONE ×2 (16:45→19:00)
[2020-12-23] MEDS ORDERED: ONDANSETRON PF 4 MG/2 ML VIAL. IV ONE (16:45)
[2020-12-23 16:55] LABS: BASO # 0.2 x10^3/uL (0.0-0.2); BASO % 1 % (0-3); EOS # 0.2 x10^3/uL (0.0-0.7); EOS % 1 % (0-3); HEMATOCRIT 39.3 % (39.0-53.0); HEMOGLOBIN 13.4 g/dL (13.0-17.5); LYMPH # 1.7 x10^3/uL (1.0-4.8); LYMPH % 13 % (24-48); MEAN CORPUSCULAR HEMOGLOBIN 30 pg (25-35); MEAN CORPUSCULAR HGB CONC 34 g/dL (31-37); MEAN CORPUSCULAR VOLUME 89 fL (79-100); MONO # 1.4 x10^3/uL (0.0-1.1); MONO % 11 % (0-9); NEUT # 9.9 x10^3/uL (1.8-7.7); NEUT % 74 % (31-73); PLATELET COUNT 175 x10^3/uL (140-400); RED BLOOD COUNT 4.42 x10^6/uL (4.30-5.70); RED CELL DISTRIBUTION WIDTH 13.5 % (11.5-14.5); WHITE BLOOD COUNT 13.4 x10^3/uL (4.0-11.0)
[2020-12-23 17:06] LABS: CALCIUM 9.3 mg/dL (8.5-10.1); CREATININE 1.8 mg/dL (0.7-1.3); GFR 36.8; POTASSIUM 4.7 mmol/L (3.5-5.1)
[2020-12-23 17:11] LABS: ALBUMIN 3.3 g/dL (3.4-5.0); ALBUMIN/GLOBULIN RATIO 0.9 (1.0-1.7); MAGNESIUM 2.1 mg/dL (1.8-2.4); TOTAL BILIRUBIN 0.5 mg/dL (0.2-1.0); TOTAL PROTEIN 7.1 g/dL (6.4-8.2)
--- NOTE | 2020-12-23 17:13 | ED.ADGEN ---
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 Patient reports he has had 2 small bowel movements today he denies any diarrhea, constipation, or blood in his stools. Patient reports that he was diagnosed with COVID-19 at the beginning of November and was just taken off of quarantine last Monday. He denies any fever, body aches, chest pain, shortness of breath, palpitations, sore throat, cough, vomiting, or back pain. He denies any dysuria, hematuria, or increased urinary frequency. Patient denies any difficulty voiding. He reports that he also feels a little nauseated with the pain he is concerned that maybe he has bowel obstruction again. Patient currently rates his pain 8 out of 10 on the pain scale, he denies any alleviating factors, the pain is worse with palpation. Review of Systems: Review of Systems: Complete ROS is negative unless otherwise noted in HPI. Current Medications: Current Medications Medications (Trade) Dose Ordered Sig/[facility] Start Time Stop Time Status Last Admin Dose Admin Info (CONTRAST GIVEN -- Rx MONITORING) 1 each PRN DAILY PRN 12/23/20 18:45 12/25/20 18:44 Iohexol (Omnipaque 240 Mg/ml) 30 ml 1X ONCE 12/23/20 18:45 12/23/20 18:46 DC 12/23/20 18:35 30 ML Morphine Sulfate (Morphine Sulfate) 4 mg 1X ONCE 12/23/20 19:00 12/23/20 19:01 DC 12/23/20 18:33 4 MG Ondansetron HCl (Zofran) 4 mg 1X ONCE 12/23/20 16:45 12/23/20 16:46 DC 12/23/20 16:45 4 MG Sodium Chloride 1,000 ml @ 1,000 mls/hr 1X ONCE 12/23/20 16:30 12/23/20 17:29 DC 12/23/20 16:45 1,000 MLS/HR Allergies: Allergies: Allergies Coded Allergies Type Severity Reaction Last Updated Verified meperidine HCl Allergy Intermediate 10/14/18 Yes sulfamethoxazole Allergy Intermediate 10/14/18 Yes trimethoprim Allergy Intermediate 10/14/18 Yes Physical Exam: PE: See Above Constitutional: Well developed, well nourished, moderate distress, appears uncomfortable HENT: Normocephalic, atraumatic, bilateral external ears normal, nose normal. [] Eyes: PERRLA, EOMI, conjunctiva normal, no discharge. [] Neck: Normal range of motion, no stridor. [] Cardiovascular:Heart rate regular rhythm Lungs & Thorax: Respirations even and unlabored, no retractions, no respiratory distress Abdomen: right lower quadrant tenderness to palpation, no rebound tenderness, guarding is present, abdomen is otherwise soft and nontender, no palpable mass, no pulsatile masses Skin: Warm, dry, no erythema, no rash. [] Extremities: No cyanosis, ROM intact, no edema. [] Neurologic: Alert and oriented X 3, no focal deficits noted. [] Psychologic: Affect normal, judgement normal, mood normal. [] Current Patient Data: Labs: Laboratory Tests Test 12/23/20 16:40 White Blood Count 13.4 x10^3/uL (4.0-11.0) H Red Blood Count 4.42 x10^6/uL (4.30-5.70) Hemoglobin 13.4 g/dL (13.0-17.5) Hematocrit 39.3 % (39.0-53.0) Mean Corpuscular Volume 89 fL (79-100) Mean Corpuscular Hemoglobin 30 pg (25-35) Mean Corpuscular Hemoglobin Concent 34 g/dL (31-37) Red Cell Distribution Width 13.5 % (11.5-14.5) Platelet Count 175 x10^3/uL (140-400) Neutrophils (%) (Auto) 74 % (31-73) H Lymphocytes (%) (Auto) 13 % (24-48) L Monocytes (%) (Auto) 11 % (0-9) H Eosinophils (%) (Auto) 1 % (0-3) Basophils (%) (Auto) 1 % (0-3) Neutrophils # (Auto) 9.9 x10^3/uL (1.8-7.7) H Lymphocytes # (Auto) 1.7 x10^3/uL (1.0-4.8) Monocytes # (Auto) 1.4 x10^3/uL (0.0-1.1) H Eosinophils # (Auto) 0.2 x10^3/uL (0.0-0.7) Basophils # (Auto) 0.2 x10^3/uL (0.0-0.2) Sodium Level 139 mmol/L (136-145) Potassium Level 4.7 mmol/L (3.5-5.1) Chloride Level 105 mmol/L (98-107) Carbon Dioxide Level 25 mmol/L (21-32) Anion Gap 9 (6-14) Blood Urea Nitrogen 27 mg/dL (8-26) H Creatinine 1.8 mg/dL (0.7-1.3) H Estimated GFR (Cockcroft-Gault) 36.8 BUN/Creatinine Ratio 15 (6-20) Glucose Level 93 mg/dL (70-99) Calcium Level 9.3 mg/dL (8.5-10.1) Magnesium Level 2.1 mg/dL (1.8-2.4) Total Bilirubin 0.5 mg/dL (0.2-1.0) Aspartate Amino Transferase (AST) 22 U/L (15-37) Alanine Aminotransferase (ALT) 21 U/L (16-63) Alkaline Phosphatase 50 U/L (46-116) Total Protein 7.1 g/dL (6.4-8.2) Albumin 3.3 g/dL (3.4-5.0) L Albumin/Globulin Ratio 0.9 (1.0-1.7) L Lipase 157 U/L (73-393) Laboratory Tests 12/23/20 16:40 Laboratory Tests 12/23/20 16:40 Vital Signs: Vital Signs Date Time Temp Pulse Resp B/P (MAP) Pulse Ox O2 Delivery O2 Flow Rate FiO2 12/23/20 18:33 16 97 Room Air 12/23/20 15:56 97.6 60 159/94 (115) 97.6 EKG: EK-sinus rhythm rate of 60, abnormal right axis deviation, QRS(T) contour abnormality consistent with anterior infarct age undetermined, no STEMI, read by Dr. Caldera] Heart Score: Risk Factors: Risk Factors: DM, Current or recent (<one month) smoker, HTN, HLP, family history of CAD, obesity. Risk Scores: Score 0 - 3: 2.5% MACE over next 6 weeks - Discharge Home Score 4 - 6: 20.3% MACE over next 6 weeks - Admit for Clinical Observation Score 7 - 10: 72.7% MACE over next 6 weeks - Early Invasive Strategies Radiology/Procedures: Radiology/Procedures: PROCEDURE: CT ABD PEL W/ORAL CONTRST ONLY PQRS Compliance Statement: One or more of the following individualized dose reduction techniques were utilized for this examination: 1. Automated exposure control 2. Adjustment of the mA and/or kV according to patient size 3. Use of iterative reconstruction technique PQRS Compliance Statement: One or more of the following individualized dose reduction techniques were utilized for this examination: 1. Automated exposure control 2. Adjustment of the mA and/or kV according to patient size 3. Use of iterative reconstruction technique CT abdomen/pelvis without contrast 12/23/2020 6:13 PM INDICATION: Right lower quadrant pain and bloating COMPARISON: None available TECHNIQUE: Multiple axial CT images of the abdomen and pelvis were obtained with oral contrast. Coronal and sagittal reformats are provided. FINDINGS: There is increased consolidative change at the right lung base and to lesser degree left lung base suggestive of pulmonary infiltrates. Heart size within normal limits. Extracardiac. Cardiac pacer wires are partially profiled. 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 Liver is on the left. Gallstones. Spleen is normal and identified in the right upper quadrant. Pancreas, adrenal glands and kidneys are normal in appearance. No hydronephrosis or suspicious renal mass. There is focal small bowel wall thickening and inflammation in the left lower quadrant with fecal stasis. Proximally there are dilated small bowel loops measuring up to 3.5 cm. Findings are identified at the terminal ileum and could reflect terminal ileitis. Findings suggestive of early small bowel obstruction. There is a left lateral fat-containing ventral abdominal hernia measuring 2.5 cm (series 2, image 48). Ventral abdominal hernia repair changes are identified. Right lateral ventral hernia measures 3.1 cm containing fat. Urinary bladder is within normal limits given degree of distention. There is ectasia of the infrarenal abdominal aorta measuring 3.4 x 3.3 cm. Calcified atherosclerotic plaque is identified involving the abdominal aorta. No pathologically enlarged lymph nodes in abdomen or pelvis. Is no free fluid or free intraperitoneal air. IMPRESSION: 1. There is focal small bowel wall thickening and inflammation in the left lower quadrant with associated fecal stasis. Findings are suggestive of terminal ileitis. There are dilated proximal small bowel loops measuring up to 3.5 cm. Consideration may be given for early small bowel obstruction versus ileus. 2. Situs inversus. 3. Cholelithiasis. 4. Ectasia of the infrarenal abdominal aorta measuring 3.4 x 3.3 cm. 5. Ventral abdominal hernia repair changes are identified with a right lateral fat-containing hernia measuring 3.1 cm. Left lateral fat-containing ventral abdominal hernia measures 2.5 cm. [] Course & Med Decision Making: Course & Med Decision Making Pertinent Labs and Imaging studies reviewed. (See chart for details) 1944-spoke with Dr. Obrien who is the admitting physician, and care was assumed following discussion of patient. Will admit patient for abdominal pain Patient's vital signs stable. Patient remains afebrile, appears nontoxic, respirations even and unlabored. Patient will be admitted to the medical /telemetry floor. Patient's case and plan of care also discussed with Dr. Caldera [] Kathia Disclaimer: Kathia Disclaimer: This electronic medical record was generated, in whole or in part, using a voice recognition dictation system. Departure Departure Impression: Primary Impression: Abdominal pain Disposition: ADMITTED INPT THIS HOSP Admitting Physician: ROMEO Maxwell) Condition: STABLE Referrals: AMELIA MATTHEWS MD (PCP) Problem Qualifiers Primary Impression: Abdominal pain Abdominal location: right lower quadrant Qualified Codes: R10.31 - Right lower quadrant pain BYRON JUARES [employer] Dec 23, 2020 17:13
[2020-12-23] MEDS ORDERED: IOHEXOL 240 MG/ML 50ML VIAL. PO ONE (18:45)
[2020-12-23] MEDS ORDERED: CONTRAST GIVEN. MC PRN (18:45)
--- NOTE | 2020-12-23 18:46 | RAD ---
PQRS Compliance Statement: One or more of the following individualized dose reduction techniques were utilized for this examinat ion: 1. Automated exposure control 2. Adjustment of the mA and/or kV according to patient size 3. Use of iterative reconstruction technique PQRS Compliance Statement: One or more of the following individualized dose reduction techniques were utilized for this examinat ion: 1. Automated exposure control 2. Adjustment of the mA and/or kV according to patient size 3. Use of iterative reconstruction technique CT abdomen/pelvis without contrast 12/23/2020 6:13 PM INDICATION: Right lower quadrant pain and bloating COMPARISON: None available TECHNIQUE: Multiple axial CT images of the abdomen and pelvis were obtained with oral contrast. Coron al and sagittal reformats are provided. FINDINGS: There is increased consolidative change at the right lung base and to lesser degree left lung base mayen ggestive of pulmonary infiltrates. Heart size within normal limits. Extracardiac. Cardiac pacer wires are partially profiled. 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 Liver is on the left. Gallstones. Spleen is normal and identified in the right upper quadrant. Pancreas, adrenal glands and kidneys are normal in appear ance. No hydronephrosis or suspicious renal mass. There is focal small bowel wall thickening and infl ammation in the left lower quadrant with fecal stasis. Proximally there are dilated small bowel loops measuring up to 3.5 cm. Findings are identified at the terminal ileum and could reflect terminal ile itis. Findings suggestive of early small bowel obstruction. There is a left lateral fat-containing ve ntral abdominal hernia measuring 2.5 cm (series 2, image 48). Ventral abdominal hernia repair changes are identified. Right lateral ventral hernia measures 3.1 cm containing fat. Urinary bladder is with in normal limits given degree of distention. There is ectasia of the infrarenal abdominal aorta measu ring 3.4 x 3.3 cm. Calcified atherosclerotic plaque is identified involving the abdominal aorta. No p athologically enlarged lymph nodes in abdomen or pelvis. Is no free fluid or free intraperitoneal air . IMPRESSION: 1. There is focal small bowel wall thickening and inflammation in the left lower quadrant with assoc iated fecal stasis. Findings are suggestive of terminal ileitis. There are dilated proximal small bow el loops measuring up to 3.5 cm. Consideration may be given for early small bowel obstruction versus ileus. 2. Situs inversus. 3. Cholelithiasis. 4. Ectasia of the infrarenal abdominal aorta measuring 3.4 x 3.3 cm. 5. Ventral abdominal hernia repair changes are identified with a right lateral fat-containing hernia measuring 3.1 cm. Left lateral fat-containing ventral abdominal hernia measures 2.5 cm. Electronically signed by: Merary Mendez MD (12/23/2020 6:43 PM) [facility]
--- NOTE | 2020-12-23 19:30 | PDOC1 ---
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 He has associated LLQ tenderness 7/10 that is sharp and colicky not relieved by pepcid at home, only relieved by 2x 4mg IV morphine doses. No bleeding, did have a BM yesterday, none since and the stool was scant. He does note he and his were diagnosed with COVID 19 on 11/22/2020 and he just regained his appetite and was taken off quarantine 5 days ago. He notes he probably "overdid it", but his dinner last night was so good. CT abdomen performed and found with SBO vs ileus and terminal ileitis. WBC 13.4, Hb 13.4, troponin negative Admitted for further care Past Medical History Cardiovascular: AFIB, CAD, CHF, HTN, HI, Hyperlipidemia, Other Pulmonary: No pertinent hx CENTRAL NERVOUS SYSTEM: Other GI: GERD, Other Heme/Onc: Other Hepatobiliary: Cholelithiasis Psych: No pertinent hx Musculoskeletal: Osteoarthritis Rheumatologic: No pertinent hx Infectious disease: No pertinent hx Renal/: Other Endocrine: No pertinent hx Past Surgical History Past Surgical History: Pacemaker, Appendectomy, CABG, Hernia Repair, Other Family History Family History: Heart Disease Social History Smoke: No ALCOHOL: none Drugs: None Current Medications Current Medications Current Medications Sodium Chloride 1,000 ml @ 1,000 mls/hr 1X ONCE IV Last administered on 12/23/20at 16:45; Start 12/23/20 at 16:30; Stop 12/23/20 at 17:29; Status DC Ondansetron HCl (Zofran) 4 mg 1X ONCE IV Last administered on 12/23/20at 16:45; Start 12/23/20 at 16:45; Stop 12/23/20 at 16:46; Status DC Morphine Sulfate (Morphine Sulfate) 4 mg 1X ONCE IV Last administered on 12/23/20at 16:45; Start 12/23/20 at 16:45; Stop 12/23/20 at 16:46; Status DC Morphine Sulfate (Morphine Sulfate) 4 mg 1X ONCE IV Last administered on at 18:33; Start 12/23/20 at 19:00; Stop 12/23/20 at 19:01; Status DC Iohexol (Omnipaque 240 Mg/ml) 30 ml 1X ONCE PO Last administered on 12/23/20at 18:35; Start 12/23/20 at 18:45; Stop 12/23/20 at 18:46; Status DC Info (CONTRAST GIVEN -- Rx MONITORING) 1 each PRN DAILY PRN MC SEE COMMENTS; Start 12/23/20 at 18:45; Stop 12/25/20 at 18:44 Active Scripts Active Reported Eliquis (Apixaban) 5 Mg Tablet 5 Mg PO BID Aspirin 81 Mg Tab.chew 1 Tab PO DAILY Betapace (Sotalol Hcl) 80 Mg Tablet 80 Mg PO BID Lovastatin 20 Mg Tablet 20 Mg PO HS Ranitidine Hcl 300 Mg Capsule 300 Mg PO BID Allergies Allergies: Coded Allergies: meperidine HCl (Verified Allergy, Intermediate, 10/14/18) HYPOTENSION- "drops bp to 0?" sulfamethoxazole (Verified Allergy, Intermediate, 10/14/18) dizzy trimethoprim (Verified Allergy, Intermediate, 10/14/18) dizzy ROS General: YES: Fatigue, Malaise; No: Chills, Night Sweats, Appetite, Other PSYCHOLOGICAL ROS: No: Anxiety, Behavioral Disorder, Concentration difficultie, Decreased libido, Depression, Disorientation, Hallucinations, Hostility, Irritablity, Memory difficulties, Mood Swings, Obsessive thoughts, Physical abuse, Sexual abuse, Sleep disturbances, Suicidal ideation, Other Eyes: No Blurry vision, No Decreased vision, No Double vision, No Dry eyes, No Excessive tearing, No Eye Pain, No Itchy Eyes, No Loss of vision, No Photophobia, No Scotomata, No Uses contacts, No Uses glasses, No Other HEENT: No: Heacaches, Visual Changes, Hearing change, Nasal congestion, Nasal discharge, Oral lesions, Sinus pain, Sore Throat, Epistaxis, Sneezing, Snoring, Tinnitus, Vertigo, Vocal changes, Other ALLERGY AND IMMUNOLOGY: No: Hives, Insect Bite Sensitivity, Itchy/Watery Eyes, Nasal Congestion, Post Nasal Drip, Seasonal Allergies, Other Hematological and Lymphatic: No: Bleeding Problems, Blood Clots, Blood Transfusions, Brusing, Night Sweats, Pallor, Swollen Lymph Nodes, Other ENDOCRINE: No: Breast Changes, Galactorrhea, Hair Pattern Changes, Hot Flashes, Malaise/lethargy, Mood Swings, Palpitations, Polydipsia/polyuria, Skin Changes, Temperature Intolerance, Unexpected Weight Changes, Other Breast: No New/Changing Breast Lumps, No Nipple changes, No Nipple discharge, No Other Respiratory: No: Cough, Hemoptysis, Orthopnea, Pleuritic Pain, Shortness of breath, SOB with excertion, Sputum Changes, Stridor, Tachypnea, Wheezing, Other Cardiovascular: No Chest Pain, No Palpitations, No Orthopnea, No Paroxysmal No c. Dyspnea, No Edema, No Lt Headedness, No Other Gastrointestinal: Yes Nausea, Yes Vomiting, Yes Abdominal Pain, Yes Constipation; No Diarrhea, No Melena, No Hematochezia, No Other Genitourinary: No Dysuria, No Frequency, No Incontinence, No Hematuria, No Retention, No Discharge, No Urgency, No Pain, No Flank Pain, No Other, No , No , No , No , No , No , No Musculoskeletal: No Gait Disturbance, No Joint Pain, No Joint Stiffness, No Joint Swelling, No Muscle Pain, No Muscular Weakness, No Pain In:, No Swelling In:, No Other Neurological: No Behavorial Changes, No Bowel/Bladder ControlChng, No Confusion, No Dizziness, No Gait Disturbance, No Headaches, No Impaired Coord/balance, No Memory Loss, No Numbness/Tingling, No Seizures, No Speech Problems, No Tremors, No Visual Changes, No Weakness, No Other Skin: No Dry Skin, No Eczema, No Hair Changes, No Lumps, No Mole Changes, No Mottling, No Nail Changes, No Pruritus, No Rash, No Skin Lesion Changes, No Other, No Acne Physical Exam General: Alert, Oriented X3, Cooperative, mild distress HEENT: Atraumatic, PERRLA, EOMI, Mucous membr. moist/pink Lungs: Clear to auscultation, Normal air movement Heart: S1S2, RRR, no thrills, no rubs Abdomen: Normal bowel sounds, Soft, No hepatosplenomegaly, No masses, Other (LLQ tenderness) Rectal Exam: not examined Extremities: No clubbing, No cyanosis, No edema, Normal pulses, No tenderness/swelling Skin: No rashes, No breakdown, No significant lesion Neuro: Normal gait, Normal speech, Strength at 5/5 X4 ext, Normal tone, Sensation intact, Cranial nerves 3-12 NL, Reflexes 2+ Psych/Mental Status: Mental status NL, Mood NL Vitals Vitals Vital Signs Date Time Temp Pulse Resp B/P (MAP) Pulse Ox O2 Delivery O2 Flow Rate FiO2 12/23/20 18:33 16 97 Room Air 12/23/20 15:56 97.6 60 159/94 (115) 97.6 Labs Labs Laboratory Tests Test 12/23/20 16:40 White Blood Count 13.4 x10^3/uL (4.0-11.0) Red Blood Count 4.42 x10^6/uL (4.30-5.70) Hemoglobin 13.4 g/dL (13.0-17.5) Hematocrit 39.3 % (39.0-53.0) Mean Corpuscular Volume 89 fL (79-100) Mean Corpuscular Hemoglobin 30 pg (25-35) Mean Corpuscular Hemoglobin Concent 34 g/dL (31-37) Red Cell Distribution Width 13.5 % (11.5-14.5) Platelet Count 175 x10^3/uL (140-400) Neutrophils (%) (Auto) 74 % (31-73) Lymphocytes (%) (Auto) 13 % (24-48) Monocytes (%) (Auto) 11 % (0-9) Eosinophils (%) (Auto) 1 % (0-3) Basophils (%) (Auto) 1 % (0-3) Neutrophils # (Auto) 9.9 x10^3/uL (1.8-7.7) Lymphocytes # (Auto) 1.7 x10^3/uL (1.0-4.8) Monocytes # (Auto) 1.4 x10^3/uL (0.0-1.1) Eosinophils # (Auto) 0.2 x10^3/uL (0.0-0.7) Basophils # (Auto) 0.2 x10^3/uL (0.0-0.2) Sodium Level 139 mmol/L (136-145) Potassium Level 4.7 mmol/L (3.5-5.1) Chloride Level 105 mmol/L (98-107) Carbon Dioxide Level 25 mmol/L (21-32) Anion Gap 9 (6-14) Blood Urea Nitrogen 27 mg/dL (8-26) Creatinine 1.8 mg/dL (0.7-1.3) Estimated GFR (Cockcroft-Gault) 36.8 BUN/Creatinine Ratio 15 (6-20) Glucose Level 93 mg/dL (70-99) Calcium Level 9.3 mg/dL (8.5-10.1) Magnesium Level 2.1 mg/dL (1.8-2.4) Total Bilirubin 0.5 mg/dL (0.2-1.0) Aspartate Amino Transf (AST/SGOT) 22 U/L (15-37) Alanine Aminotransferase (ALT/SGPT) 21 U/L (16-63) Alkaline Phosphatase 50 U/L (46-116) Total Protein 7.1 g/dL (6.4-8.2) Albumin 3.3 g/dL (3.4-5.0) Albumin/Globulin Ratio 0.9 (1.0-1.7) Lipase 157 U/L (73-393) Laboratory Tests Test 12/23/20 16:40 White Blood Count 13.4 x10^3/uL (4.0-11.0) Red Blood Count 4.42 x10^6/uL (4.30-5.70) Hemoglobin 13.4 g/dL (13.0-17.5) Hematocrit 39.3 % (39.0-53.0) Mean Corpuscular Volume 89 fL (79-100) Mean Corpuscular Hemoglobin 30 pg (25-35) Mean Corpuscular Hemoglobin Concent 34 g/dL (31-37) Red Cell Distribution Width 13.5 % (11.5-14.5) Platelet Count 175 x10^3/uL (140-400) Neutrophils (%) (Auto) 74 % (31-73) Lymphocytes (%) (Auto) 13 % (24-48) Monocytes (%) (Auto) 11 % (0-9) Eosinophils (%) (Auto) 1 % (0-3) Basophils (%) (Auto) 1 % (0-3) Neutrophils # (Auto) 9.9 x10^3/uL (1.8-7.7) Lymphocytes # (Auto) 1.7 x10^3/uL (1.0-4.8) Monocytes # (Auto) 1.4 x10^3/uL (0.0-1.1) Eosinophils # (Auto) 0.2 x10^3/uL (0.0-0.7) Basophils # (Auto) 0.2 x10^3/uL (0.0-0.2) Sodium Level 139 mmol/L (136-145) Potassium Level 4.7 mmol/L (3.5-5.1) Chloride Level 105 mmol/L (98-107) Carbon Dioxide Level 25 mmol/L (21-32) Anion Gap 9 (6-14) Blood Urea Nitrogen 27 mg/dL (8-26) Creatinine 1.8 mg/dL (0.7-1.3) Estimated GFR (Cockcroft-Gault) 36.8 BUN/Creatinine Ratio 15 (6-20) Glucose Level 93 mg/dL (70-99) Calcium Level 9.3 mg/dL (8.5-10.1) Magnesium Level 2.1 mg/dL (1.8-2.4) Total Bilirubin 0.5 mg/dL (0.2-1.0) Aspartate Amino Transf (AST/SGOT) 22 U/L (15-37) Alanine Aminotransferase (ALT/SGPT) 21 U/L (16-63) Alkaline Phosphatase 50 U/L (46-116) Total Protein 7.1 g/dL (6.4-8.2) Albumin 3.3 g/dL (3.4-5.0) Albumin/Globulin Ratio 0.9 (1.0-1.7) Lipase 157 U/L (73-393) Images Images CT abomen/pelvis: There is increased consolidative change at the right lung base and to lesser degree left lung base suggestive of pulmonary infiltrates. Heart size within normal limits. Extracardiac. Cardiac pacer wires are partially profiled. 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 Liver is on the left. Gallstones. Spleen is normal and identified in the right upper quadrant. Pancreas, adrenal glands and kidneys are normal in appearance. No hydronephrosis or suspicious renal mass. There is focal small bowel wall thickening and inflammation in the left lower quadrant with fecal stasis. Proximally there are dilated small bowel loops measuring up to 3.5 cm. Findings are identified at the terminal ileum and could reflect terminal ileitis. Findings suggestive of early small bowel obstruction. There is a left lateral fat-containing ventral abdominal hernia measuring 2.5 cm (series 2, image 48). Ventral abdominal hernia repair changes are identified. Right lateral ventral hernia measures 3.1 cm containing fat. Urinary bladder is within normal limits given degree of distention. There is ectasia of the infrarenal abdominal aorta measuring 3.4 x 3.3 cm. Calcified atherosclerotic plaque is identified involving the abdominal aorta. No pathologically enlarged lymph nodes in abdomen or pelvis. Is no free fluid or free intraperitoneal air. IMPRESSION: 1. There is focal small bowel wall thickening and inflammation in the left lower quadrant with associated fecal stasis. Findings are suggestive of terminal ileitis. There are dilated proximal small bowel loops measuring up to 3.5 cm. Consideration may be given for early small bowel obstruction versus ileus. 2. Situs inversus. 3. Cholelithiasis. 4. Ectasia of the infrarenal abdominal aorta measuring 3.4 x 3.3 cm. 5. Ventral abdominal hernia repair changes are identified with a right lateral fat-containing hernia measuring 3.1 cm. Left lateral fat-containing ventral abdominal hernia measures 2.5 cm. VTE Prophylaxis Ordered VTE Prophylaxis Devices: Yes VTE Pharmacological Prophylaxi: Yes Assessment/Plan Assessment/Plan A/P: Abdominal pain - likely from SBO/ileus, will keep NPO, iv pain and nausea meds Terminal ileitis - on CT with WBC elevated, will place on antibiotics CAD s/p CABG - hold PO meds Situs inversus Cholelithiasis - stable GERD - IV PPI High Cholesterol - hold statin Hypertension - prn hydralazine h/o lymphoma s/p sx removal h/o multiple abd sx sam, vasomotor nephropathy - will hydrate SSS s/p PPM - h/o afib on eliquis and sotalol, prior echo with reduced EF as well. will consult cardiology for medication recommendations Recent COVID 19 - recovered. Will monitor FEN - NPO PPX - lovenox FULL CODE Dispo - inpatient Justifications for Admission Other Justification MARLON DINERO MD Dec 23, 2020 19:30
[2020-12-23] MEDS ORDERED: MORPHINE SULFATE 4 MG/ML VIAL. IV PRN (20:00)
[2020-12-23] MEDS ORDERED: ONDANSETRON PF 4 MG/2 ML VIAL. IV PRN ×2 (20:00→22:00)
[2020-12-23] MEDS: IV NORMAL SALINE 1000ML BAG 1,000 ML IV SCH (20:00)
[2020-12-23] MEDS ORDERED: PIP/TAZO PER PHARMACY MC PRN (22:00)
[2020-12-23] MEDS ORDERED: BISACODYL 10 MG SUPP.RECT. PR PRN (22:00)
[2020-12-23] MEDS ORDERED: hydrALAZINE 20 MG/ML VIAL. IVP PRN (22:15)
[2020-12-23] MEDS ORDERED: PIPERACILLIN/TAZOBACTAM 3.375 GM in IV NORMAL SALINE 50ML 50 ML IV ONE (22:30)
--- NOTE | 2020-12-23 23:50 | NUR ---
The patient, GILLIAN CORRIGAN, 75 y/o, M admitted by MARLON DINERO MD, was given written information regarding hospital policies, unit procedures and contact persons. Pt.does not complain of any pain at this time. Valuables were checked and left with pt. in his room. Call light is within reach with bed in lowest position. Will continue to monitor.
[2020-12-24] MEDS ORDERED: ACET325T21 PO (00:46)
[2020-12-24] MEDS: IV NORMAL SALINE 1000ML BAG 1,000 ML IV SCH ×3 (01:20→16:00)
[2020-12-24 03:00] VITALS: BP 155/71
[2020-12-24] MEDS: PIPERACILLIN/TAZOBACTAM 3.375 GM in IV NORMAL SALINE 50ML 50 ML IV SCH ×4 (06:36→23:33)
[2020-12-24 07:00] VITALS: BP 122/70
[2020-12-24 07:14] LABS: BASO % 1 % (0-3); EOS # 0.2 x10^3/uL (0.0-0.7); EOS % 2 % (0-3); HEMATOCRIT 37.7 % (39.0-53.0); HEMOGLOBIN 12.6 g/dL (13.0-17.5); LYMPH # 1.9 x10^3/uL (1.0-4.8); LYMPH % 23 % (24-48); MEAN CORPUSCULAR HEMOGLOBIN 30 pg (25-35); MEAN CORPUSCULAR HGB CONC 33 g/dL (31-37); MEAN CORPUSCULAR VOLUME 89 fL (79-100); MONO % 11 % (0-9); NEUT # 5.3 x10^3/uL (1.8-7.7); NEUT % 63 % (31-73); PLATELET COUNT 148 x10^3/uL (140-400); RED BLOOD COUNT 4.24 x10^6/uL (4.30-5.70); RED CELL DISTRIBUTION WIDTH 13.5 % (11.5-14.5); WHITE BLOOD COUNT 8.4 x10^3/uL (4.0-11.0)
[2020-12-24 07:43] LABS: ALBUMIN 2.7 g/dL (3.4-5.0); ALBUMIN/GLOBULIN RATIO 0.8 (1.0-1.7); CALCIUM 8.3 mg/dL (8.5-10.1); CREATININE 1.6 mg/dL (0.7-1.3); GFR 42.1; POTASSIUM 4.2 mmol/L (3.5-5.1); TOTAL BILIRUBIN 0.7 mg/dL (0.2-1.0); TOTAL PROTEIN 6.1 g/dL (6.4-8.2)
--- NOTE | 2020-12-24 08:38 | PDOC2 ---
SEEMA KHOURY LABOR SPECIALIST 12/24/20 0838: CONSULT Date of Consult Date of Consult DATE: 12/24/20 TIME: 08:35 Reason for Consult Reason for Consult: SBO Referring Physician Referring Physician: ER Identification/Chief Complaint Chief Complaint abdominal pain Source Source: Chart review, Patient History of Present Illness Reason for Visit: Recent recovery from covid, lost 25 lbs, had no appetite. Monday hungry thinks over ate, nausea, pain, vomiting. Last night once here loose stool. Improved now Past Medical History Cardiovascular: AFIB, CAD, CHF, HTN, VA, Hyperlipidemia, Other Pulmonary: No pertinent hx CENTRAL NERVOUS SYSTEM: Other GI: GERD, Other Heme/Onc: Other Hepatobiliary: Cholelithiasis Psych: No pertinent hx Musculoskeletal: Osteoarthritis Rheumatologic: No pertinent hx Infectious disease: No pertinent hx Renal/: Other Endocrine: No pertinent hx Past Surgical History Past Surgical History: Pacemaker, Appendectomy, CABG, Hernia Repair, Other Family History Family History: Heart Disease Social History No ALCOHOL: none Drugs: None Lives: Alone Current Problem List Problem List Problems Medical Problems: (1) Abdominal pain Status: Acute Current Medications Current Medications Current Medications Sodium Chloride 1,000 ml @ 1,000 mls/hr 1X ONCE IV Last administered on 12/23/20at 16:45; Start 12/23/20 at 16:30; Stop 12/23/20 at 17:29; Status DC Ondansetron HCl (Zofran) 4 mg 1X ONCE IV Last administered on 12/23/20at 16:45; Start 12/23/20 at 16:45; Stop 12/23/20 at 16:46; Status DC Morphine Sulfate (Morphine Sulfate) 4 mg 1X ONCE IV Last administered on 12/23/20at 16:45; Start 12/23/20 at 16:45; Stop 12/23/20 at 16:46; Status DC Morphine Sulfate (Morphine Sulfate) 4 mg 1X ONCE IV Last administered on 12/23/20at 18:33; Start 12/23/20 at 19:00; Stop 12/23/20 at 19:01; Status DC Iohexol (Omnipaque 240 Mg/ml) 30 ml 1X ONCE PO Last administered on 12/23/20at 18:35; Start 12/23/20 at 18:45; Stop 12/23/20 at 18:46; Status DC Info (CONTRAST GIVEN -- Rx MONITORING) 1 each PRN DAILY PRN MC SEE COMMENTS; Start 12/23/20 at 18:45; Stop 12/25/20 at 18:44 Ondansetron HCl (Zofran) 4 mg PRN Q8HRS PRN IV NAUSEA/VOMITING; Start 12/23/20 at 20:00; Stop 12/23/20 at 22:10; Status DC Morphine Sulfate (Morphine Sulfate) 4 mg PRN Q2HR PRN IV PAIN; Start 12/23/20 at 20:00 Sodium Chloride 1,000 ml @ 100 mls/hr Q10H IV Last administered on 12/24/20at 05:54; Start 12/23/20 at 20:00; Stop 12/24/20 at 19:59 Ondansetron HCl (Zofran) 4 mg PRN Q4HRS PRN IV NAUSEA/VOMITING; Start 12/23/20 at 22:00 Enoxaparin Sodium (Lovenox Per Pharmacy Treatment Dosing) 1 each PRN DAILY PRN MC SEE COMMENTS; Start 12/23/20 at 22:00 Bisacodyl (Dulcolax Supp) 10 mg PRN DAILY PRN [place] CONSTIPATION; Start 12/23/20 at 22:00 Piperacillin Sod/ Tazobactam Sod 3.375 gm/Sodium Chloride 50 ml @ 100 mls/hr 1X ONCE IV Last administered on 12/24/20at 00:59; Start 12/23/20 at 22:30; Stop 12/23/20 at 22:59; Status DC Piperacillin Sod/ Tazobactam Sod (Zosyn Per Pharmacy) 1 each PRN DAILY PRN MC SEE COMMENTS; Start 12/23/20 at 22:00 Metronidazole 100 ml @ 100 mls/hr Q8HRS IV Last administered on 12/24/20at 05:54; Start 12/23/20 at 22:00 Hydralazine HCl (Apresoline Inj) 10 mg PRN Q4HRS PRN IVP ELEVATED BP, SEE COMMENTS; Start 12/23/20 at 22:15 Enoxaparin Sodium (Lovenox 100mg Syringe) 100 mg Q12HR SQ Last administered on 12/24/20at 01:04; Start 12/23/20 at 22:30 Piperacillin Sod/ Tazobactam Sod 3.375 gm/Sodium Chloride 50 ml @ 100 mls/hr Q6HRS IV Last administered on 12/24/20at 06:36; Start 12/24/20 at 06:00 Active Scripts Active Reported Acetaminophen 325 Mg Tablet 1 Tab PO PRN PRN 30 Days Eliquis (Apixaban) 5 Mg Tablet 5 Mg PO BID Aspirin 81 Mg Tab.chew 1 Tab PO DAILY Betapace (Sotalol Hcl) 80 Mg Tablet 80 Mg PO BID Lovastatin 20 Mg Tablet 20 Mg PO HS Ranitidine Hcl 300 Mg Capsule 300 Mg PO BID Allergies Allergies: Coded Allergies: meperidine HCl (Verified Allergy, Intermediate, 10/14/18) HYPOTENSION- "drops bp to 0?" sulfamethoxazole (Verified Allergy, Intermediate, 10/14/18) dizzy trimethoprim (Verified Allergy, Intermediate, 10/14/18) dizzy ROS General: YES: Fatigue; No: Chills PSYCHOLOGICAL ROS: No: Anxiety, Depression Eyes: No Blurry vision, No Double vision HEENT: No: Heacaches, Sore Throat Hematological and Lymphatic: No: Bleeding Problems, Blood Clots Respiratory: No: Cough, Shortness of breath Cardiovascular: No Chest Pain, No Palpitations Gastrointestinal: Yes Other (see hpi) Genitourinary: No Dysuria, No Hematuria Musculoskeletal: No Joint Pain, No Muscle Pain Neurological: No Impaired Coord/balance, No Numbness/Tingling Skin: No Pruritus, No Rash Physical Exam General: Alert, Oriented X3, Cooperative HEENT: Atraumatic, PERRLA Lungs: Clear to auscultation, Normal air movement Heart: Regular rate, Normal S1, Normal S2 Abdomen: Soft, No tenderness, No hepatosplenomegaly Extremities: No clubbing, No cyanosis Skin: No rashes, No breakdown Neuro: Normal gait, Normal speech Psych/Mental Status: Mental status NL, Mood NL MUSCULOSKELETAL: No deformity, No swelling Vitals VITALS Vital Signs Date Time Temp Pulse Resp B/P (MAP) Pulse Ox O2 Delivery O2 Flow Rate FiO2 12/24/20 07:00 97.6 62 18 122/70 (87) 98 Room Air 97.6 Labs Labs Laboratory Tests Test 12/23/20 16:40 12/23/20 21:09 12/24/20 06:20 White Blood Count 13.4 x10^3/uL (4.0-11.0) 8.4 x10^3/uL (4.0-11.0) Red Blood Count 4.42 x10^6/uL (4.30-5.70) 4.24 x10^6/uL (4.30-5.70) Hemoglobin 13.4 g/dL (13.0-17.5) 12.6 g/dL (13.0-17.5) Hematocrit 39.3 % (39.0-53.0) 37.7 % (39.0-53.0) Mean Corpuscular Volume 89 fL (79-100) 89 fL (79-100) Mean Corpuscular Hemoglobin 30 pg (25-35) 30 pg (25-35) Mean Corpuscular Hemoglobin Concent 34 g/dL (31-37) 33 g/dL (31-37) Red Cell Distribution Width 13.5 % (11.5-14.5) 13.5 % (11.5-14.5) Platelet Count 175 x10^3/uL (140-400) 148 x10^3/uL (140-400) Neutrophils (%) (Auto) 74 % (31-73) 63 % (31-73) Lymphocytes (%) (Auto) 13 % (24-48) 23 % (24-48) Monocytes (%) (Auto) 11 % (0-9) 11 % (0-9) Eosinophils (%) (Auto) 1 % (0-3) 2 % (0-3) Basophils (%) (Auto) 1 % (0-3) 1 % (0-3) Neutrophils # (Auto) 9.9 x10^3/uL (1.8-7.7) 5.3 x10^3/uL (1.8-7.7) Lymphocytes # (Auto) 1.7 x10^3/uL (1.0-4.8) 1.9 x10^3/uL (1.0-4.8) Monocytes # (Auto) 1.4 x10^3/uL (0.0-1.1) 1.0 x10^3/uL (0.0-1.1) Eosinophils # (Auto) 0.2 x10^3/uL (0.0-0.7) 0.2 x10^3/uL (0.0-0.7) Basophils # (Auto) 0.2 x10^3/uL (0.0-0.2) 0.0 x10^3/uL (0.0-0.2) Sodium Level 139 mmol/L (136-145) 138 mmol/L (136-145) Potassium Level 4.7 mmol/L (3.5-5.1) 4.2 mmol/L (3.5-5.1) Chloride Level 105 mmol/L (98-107) 106 mmol/L (98-107) Carbon Dioxide Level 25 mmol/L (21-32) 24 mmol/L (21-32) Anion Gap 9 (6-14) 8 (6-14) Blood Urea Nitrogen 27 mg/dL (8-26) 24 mg/dL (8-26) Creatinine 1.8 mg/dL (0.7-1.3) 1.6 mg/dL (0.7-1.3) Estimated GFR (Cockcroft-Gault) 36.8 42.1 BUN/Creatinine Ratio 15 (6-20) 15 (6-20) Glucose Level 93 mg/dL (70-99) 79 mg/dL (70-99) Calcium Level 9.3 mg/dL (8.5-10.1) 8.3 mg/dL (8.5-10.1) Magnesium Level 2.1 mg/dL (1.8-2.4) Total Bilirubin 0.5 mg/dL (0.2-1.0) 0.7 mg/dL (0.2-1.0) Aspartate Amino Transf (AST/SGOT) 22 U/L (15-37) 17 U/L (15-37) Alanine Aminotransferase (ALT/SGPT) 21 U/L (16-63) 15 U/L (16-63) Alkaline Phosphatase 50 U/L (46-116) 43 U/L (46-116) Total Protein 7.1 g/dL (6.4-8.2) 6.1 g/dL (6.4-8.2) Albumin 3.3 g/dL (3.4-5.0) 2.7 g/dL (3.4-5.0) Albumin/Globulin Ratio 0.9 (1.0-1.7) 0.8 (1.0-1.7) Lipase 157 U/L (73-393) Troponin I Quantitative < 0.017 ng/mL (0.000-0.055) Laboratory Tests Test 12/23/20 16:40 12/23/20 21:09 12/24/20 06:20 White Blood Count 13.4 x10^3/uL (4.0-11.0) 8.4 x10^3/uL (4.0-11.0) Red Blood Count 4.42 x10^6/uL (4.30-5.70) 4.24 x10^6/uL (4.30-5.70) Hemoglobin 13.4 g/dL (13.0-17.5) 12.6 g/dL (13.0-17.5) Hematocrit 39.3 % (39.0-53.0) 37.7 % (39.0-53.0) Mean Corpuscular Volume 89 fL (79-100) 89 fL (79-100) Mean Corpuscular Hemoglobin 30 pg (25-35) 30 pg (25-35) Mean Corpuscular Hemoglobin Concent 34 g/dL (31-37) 33 g/dL (31-37) Red Cell Distribution Width 13.5 % (11.5-14.5) 13.5 % (11.5-14.5) Platelet Count 175 x10^3/uL (140-400) 148 x10^3/uL (140-400) Neutrophils (%) (Auto) 74 % (31-73) 63 % (31-73) Lymphocytes (%) (Auto) 13 % (24-48) 23 % (24-48) Monocytes (%) (Auto) 11 % (0-9) 11 % (0-9) Eosinophils (%) (Auto) 1 % (0-3) 2 % (0-3) Basophils (%) (Auto) 1 % (0-3) 1 % (0-3) Neutrophils # (Auto) 9.9 x10^3/uL (1.8-7.7) 5.3 x10^3/uL (1.8-7.7) Lymphocytes # (Auto) 1.7 x10^3/uL (1.0-4.8) 1.9 x10^3/uL (1.0-4.8) Monocytes # (Auto) 1.4 x10^3/uL (0.0-1.1) 1.0 x10^3/uL (0.0-1.1) Eosinophils # (Auto) 0.2 x10^3/uL (0.0-0.7) 0.2 x10^3/uL (0.0-0.7) Basophils # (Auto) 0.2 x10^3/uL (0.0-0.2) 0.0 x10^3/uL (0.0-0.2) Sodium Level 139 mmol/L (136-145) 138 mmol/L (136-145) Potassium Level 4.7 mmol/L (3.5-5.1) 4.2 mmol/L (3.5-5.1) Chloride Level 105 mmol/L (98-107) 106 mmol/L (98-107) Carbon Dioxide Level 25 mmol/L (21-32) 24 mmol/L (21-32) Anion Gap 9 (6-14) 8 (6-14) Blood Urea Nitrogen 27 mg/dL (8-26) 24 mg/dL (8-26) Creatinine 1.8 mg/dL (0.7-1.3) 1.6 mg/dL (0.7-1.3) Estimated GFR (Cockcroft-Gault) 36.8 42.1 BUN/Creatinine Ratio 15 (6-20) 15 (6-20) Glucose Level 93 mg/dL (70-99) 79 mg/dL (70-99) Calcium Level 9.3 mg/dL (8.5-10.1) 8.3 mg/dL (8.5-10.1) Magnesium Level 2.1 mg/dL (1.8-2.4) Total Bilirubin 0.5 mg/dL (0.2-1.0) 0.7 mg/dL (0.2-1.0) Aspartate Amino Transf (AST/SGOT) 22 U/L (15-37) 17 U/L (15-37) Alanine Aminotransferase (ALT/SGPT) 21 U/L (16-63) 15 U/L (16-63) Alkaline Phosphatase 50 U/L (46-116) 43 U/L (46-116) Total Protein 7.1 g/dL (6.4-8.2) 6.1 g/dL (6.4-8.2) Albumin 3.3 g/dL (3.4-5.0) 2.7 g/dL (3.4-5.0) Albumin/Globulin Ratio 0.9 (1.0-1.7) 0.8 (1.0-1.7) Lipase 157 U/L (73-393) Troponin I Quantitative < 0.017 ng/mL (0.000-0.055) Assessment/Plan Assessment/Plan enteritis, ileus improved, try clears AARTI JOSEPH MD 12/24/20 0931: CONSULT Assessment/Plan Assessment/Plan Pt seen and examined. Agree with Abeba's note Pt recovering from covid one month ago. Lost 25 lbs. Ate aggressively two days ago. Presented to [facility] with abd pain, improved now passing multiple stools abd soft, ND, NTTP, stable hernias will try clears and ADAT Thanks for consult! SEEMA KHOURY APRN Dec 24, 2020 08:38 AARTI JOSEPH MD Dec 24, 2020 09:31
--- NOTE | 2020-12-24 09:15 | NUR ---
SW following. Discussed with RN, pt from home with , room air, clear liquid diet. Pt is COVID-19 recovered. Surgery following. Cardiology consulted. RN advised no SW needs, anticipates possible discharge home tomorrow (12/25/20). SW will continue to follow.
--- NOTE | 2020-12-24 10:49 | PDOC ---
[employer] PROGRESS NOTE Date of Service DOS: DATE: 12/24/20 TIME: 10:40 Chief Complaint Chief Complaint A/P: Abdominal pain -improved after bowel movement. Likely from ileus. Advance diet as tolerated. Terminal ileitis - on CT with WBC elevated, will place on antibiotics CAD s/p CABG - hold PO meds Situs inversus Cholelithiasis - stable GERD - IV PPI High Cholesterol - hold statin Hypertension - prn hydralazine h/o lymphoma s/p sx removal h/o multiple abd sx sam, vasomotor nephropathy - will hydrate SSS s/p PPM - h/o afib on eliquis and sotalol, prior echo with reduced EF as well. will consult cardiology for medication recommendations Recent COVID 19 - recovered. 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 He has associated LLQ tenderness /10 that is sharp and colicky not relieved by pepcid at home, only relieved by 2x 4mg IV morphine doses. No bleeding, did have a BM yesterday, none since and the stool was scant. He does note he and his were diagnosed with COVID 19 on 11/22/2020 and he just regained his appetite and was taken off quarantine 5 days ago. He notes he probably "overdid it", but his dinner last night was so good. CT abdomen performed and found with SBO vs ileus and terminal ileitis. WBC 13.4, Hb 13.4, troponin negative Admitted for further care 12/24: Patient seen and evaluated. History of multiple abdominal surgeries and SBO. Abdominal pain is improved after loose bowel movement last night. His diet has been advanced to clears, and will advance diet as tolerated. Will discontinue Zosyn for enteritis as long as patient's pain continues to improve. Discussed with RN. Vitals/I&O Vitals/I&O: Vital Signs Date Time Temp Pulse Resp B/P (MAP) Pulse Ox O2 Delivery O2 Flow Rate FiO2 12/24/20 08:00 Room Air 12/24/20 07:00 97.6 62 18 122/70 (87) 98 97.6 I & O 12/23/20 12/23/20 12/24/20 15:00 23:00 07:00 Intake Total 1000 ml Balance 1000 ml Physical Exam General: Alert, Oriented X3, Cooperative Heart: Regular rate, Normal S1, Normal S2 Lungs: Clear Abdomen: Soft, No hepatosplenomegaly Extremities: No clubbing, No cyanosis Skin: No rashes, No breakdown Labs Labs: Laboratory Tests Test 12/23/20 16:40 12/23/20 21:09 12/24/20 06:20 White Blood Count 13.4 x10^3/uL (4.0-11.0) 8.4 x10^3/uL (4.0-11.0) Red Blood Count 4.42 x10^6/uL (4.30-5.70) 4.24 x10^6/uL (4.30-5.70) Hemoglobin 13.4 g/dL (13.0-17.5) 12.6 g/dL (13.0-17.5) Hematocrit 39.3 % (39.0-53.0) 37.7 % (39.0-53.0) Mean Corpuscular Volume 89 fL (79-100) 89 fL (79-100) Mean Corpuscular Hemoglobin 30 pg (25-35) 30 pg (25-35) Mean Corpuscular Hemoglobin Concent 34 g/dL (31-37) 33 g/dL (31-37) Red Cell Distribution Width 13.5 % (11.5-14.5) 13.5 % (11.5-14.5) Platelet Count 175 x10^3/uL (140-400) 148 x10^3/uL (140-400) Neutrophils (%) (Auto) 74 % (31-73) 63 % (31-73) Lymphocytes (%) (Auto) 13 % (24-48) 23 % (24-48) Monocytes (%) (Auto) 11 % (0-9) 11 % (0-9) Eosinophils (%) (Auto) 1 % (0-3) 2 % (0-3) Basophils (%) (Auto) 1 % (0-3) 1 % (0-3) Neutrophils # (Auto) 9.9 x10^3/uL (1.8-7.7) 5.3 x10^3/uL (1.8-7.7) Lymphocytes # (Auto) 1.7 x10^3/uL (1.0-4.8) 1.9 x10^3/uL (1.0-4.8) Monocytes # (Auto) 1.4 x10^3/uL (0.0-1.1) 1.0 x10^3/uL (0.0-1.1) Eosinophils # (Auto) 0.2 x10^3/uL (0.0-0.7) 0.2 x10^3/uL (0.0-0.7) Basophils # (Auto) 0.2 x10^3/uL (0.0-0.2) 0.0 x10^3/uL (0.0-0.2) Sodium Level 139 mmol/L (136-145) 138 mmol/L (136-145) Potassium Level 4.7 mmol/L (3.5-5.1) 4.2 mmol/L (3.5-5.1) Chloride Level 105 mmol/L (98-107) 106 mmol/L (98-107) Carbon Dioxide Level 25 mmol/L (21-32) 24 mmol/L (21-32) Anion Gap 9 (6-14) 8 (6-14) Blood Urea Nitrogen 27 mg/dL (8-26) 24 mg/dL (8-26) Creatinine 1.8 mg/dL (0.7-1.3) 1.6 mg/dL (0.7-1.3) Estimated GFR (Cockcroft-Gault) 36.8 42.1 BUN/Creatinine Ratio 15 (6-20) 15 (6-20) Glucose Level 93 mg/dL (70-99) 79 mg/dL (70-99) Calcium Level 9.3 mg/dL (8.5-10.1) 8.3 mg/dL (8.5-10.1) Magnesium Level 2.1 mg/dL (1.8-2.4) Total Bilirubin 0.5 mg/dL (0.2-1.0) 0.7 mg/dL (0.2-1.0) Aspartate Amino Transf (AST/SGOT) 22 U/L (15-37) 17 U/L (15-37) Alanine Aminotransferase (ALT/SGPT) 21 U/L (16-63) 15 U/L (16-63) Alkaline Phosphatase 50 U/L (46-116) 43 U/L (46-116) Total Protein 7.1 g/dL (6.4-8.2) 6.1 g/dL (6.4-8.2) Albumin 3.3 g/dL (3.4-5.0) 2.7 g/dL (3.4-5.0) Albumin/Globulin Ratio 0.9 (1.0-1.7) 0.8 (1.0-1.7) Lipase 157 U/L (73-393) Troponin I Quantitative < 0.017 ng/mL (0.000-0.055) Assessment and Plan Assessmemt and Plan Problems Medical Problems: (1) Abdominal pain Status: Acute Comment Review of Relevant I have reviewed the following items mukul (where applicable) has been applied. Medications: Current Medications Medications (Trade) Dose Ordered Sig/Rosemary Route PRN Reason Start Time Stop Time Status Last Admin Dose Admin Sodium Chloride 1,000 ml @ 1,000 mls/hr 1X ONCE IV 12/23/20 16:30 12/23/20 17:29 DC 12/23/20 16:45 Ondansetron HCl (Zofran) 4 mg 1X ONCE IV 12/23/20 16:45 12/23/20 16:46 DC 12/23/20 16:45 Morphine Sulfate (Morphine Sulfate) 4 mg 1X ONCE IV 12/23/20 16:45 12/23/20 16:46 DC 12/23/20 16:45 Morphine Sulfate (Morphine Sulfate) 4 mg 1X ONCE IV 12/23/20 19:00 12/23/20 19:01 DC 12/23/20 18:33 Iohexol (Omnipaque 240 Mg/ml) 30 ml 1X ONCE PO 12/23/20 18:45 12/23/20 18:46 DC 12/23/20 18:35 Sodium Chloride 1,000 ml @ 100 mls/hr Q10H IV 12/23/20 20:00 12/24/20 19:59 12/24/20 05:54 Piperacillin Sod/ Tazobactam Sod 3.375 gm/Sodium Chloride 50 ml @ 100 mls/hr 1X ONCE IV 12/23/20 22:30 12/23/20 22:59 DC 12/24/20 00:59 Metronidazole 100 ml @ 100 mls/hr Q8HRS IV 12/23/20 22:00 12/24/20 05:54 Enoxaparin Sodium (Lovenox 100mg Syringe) 100 mg Q12HR SQ 12/23/20 22:30 12/24/20 08:35 Piperacillin Sod/ Tazobactam Sod 3.375 gm/Sodium Chloride 50 ml @ 100 mls/hr Q6HRS IV 12/24/20 06:00 12/24/20 06:36 Justifications for Admission Other Justification CHUNG SCHULTE MD Dec 24, 2020 10:49
[2020-12-24 11:00] VITALS: BP 116/76
[2020-12-24] MEDS ORDERED: METOPROLOL IV PUSH 5 MG/5 ML VIAL. IVP ONE (12:30)
--- NOTE | 2020-12-24 12:55 | PDOC2 ---
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 No nausea vomiting or diarrhea. He has been having abdominal at least in the last [address] revealed terminal ileitis. He had symptomatic covid-19 + on 11/21/2020 and completed the quarantine period and is no longer symptomatic. He had malaise, anosmia and ageusia at that time. No complains of chest pain palpitations or SOA. He takes Eliquis and sotalol for PAFIB. PAST MEDICAL HISTORY Past Medical History Cardiovascular: AFIB, CAD, CHF, HTN, AL, Hyperlipidemia, situs inversus Pulmonary: No pertinent hx CENTRAL NERVOUS SYSTEM: Other GI: GERD, Other Heme/Onc: Other Hepatobiliary: Cholelithiasis Psych: No pertinent hx Musculoskeletal: Osteoarthritis Rheumatologic: No pertinent hx Infectious disease: No pertinent hx Renal/: Other Endocrine: No pertinent hx PAST SURGICAL HISTORY Past Surgical History Pacemaker, Appendectomy, CABG, Hernia Repair FAMILY HISTORY Family History: Heart Disease SOCIAL HISTORY Smoke: No ALCOHOL: none Drugs: None Lives: with Family CURRENT MEDICATIONS CURRENT MEDICATIONS Current Medications Medications (Trade) Dose Ordered Sig/Rosemary Route PRN Reason Start Time Stop Time Status Last Admin Dose Admin Sodium Chloride 1,000 ml @ 1,000 mls/hr 1X ONCE IV 12/23/20 16:30 12/23/20 17:29 DC 12/23/20 16:45 Ondansetron HCl (Zofran) 4 mg 1X ONCE IV 12/23/20 16:45 12/23/20 16:46 DC 12/23/20 16:45 Morphine Sulfate (Morphine Sulfate) 4 mg 1X ONCE IV 12/23/20 16:45 12/23/20 16:46 DC 12/23/20 16:45 Morphine Sulfate (Morphine Sulfate) 4 mg 1X ONCE IV 12/23/20 19:00 12/23/20 19:01 DC 12/23/20 18:33 Iohexol (Omnipaque 240 Mg/ml) 30 ml 1X ONCE PO 12/23/20 18:45 12/23/20 18:46 DC 12/23/20 18:35 Sodium Chloride 1,000 ml @ 100 mls/hr Q10H IV 12/23/20 20:00 12/24/20 19:59 12/24/20 05:54 Piperacillin Sod/ Tazobactam Sod 3.375 gm/Sodium Chloride 50 ml @ 100 mls/hr 1X ONCE IV 12/23/20 22:30 12/23/20 22:59 DC 12/24/20 00:59 Metronidazole 100 ml @ 100 mls/hr Q8HRS IV 12/23/20 22:00 12/24/20 05:54 Enoxaparin Sodium (Lovenox 100mg Syringe) 100 mg Q12HR SQ 12/23/20 22:30 12/24/20 08:35 Piperacillin Sod/ Tazobactam Sod 3.375 gm/Sodium Chloride 50 ml @ 100 mls/hr Q6HRS IV 12/24/20 06:00 12/24/20 11:41 ALLERGIES ALLERGIES: Coded Allergies: meperidine HCl (Verified Allergy, Intermediate, 10/14/18) HYPOTENSION- "drops bp to 0?" sulfamethoxazole (Verified Allergy, Intermediate, 10/14/18) dizzy trimethoprim (Verified Allergy, Intermediate, 10/14/18) dizzy ROS Review of System 14 point ROS evaluated with pertinent positives noted per HPI PHYSICAL EXAM General: Alert, Oriented X3, Cooperative, No acute distress HEENT: Atraumatic, Mucous membr. moist/pink Lungs: Clear to auscultation, Normal air movement Heart: Regular rate (no tele), Normal S1, Normal S2, No murmurs Abdomen: Other (lower abd tenderness ) Extremities: No cyanosis, No edema Skin: No breakdown, No significant lesion Neuro: Normal speech, Sensation intact Psych/Mental Status: Mental status NL, Mood NL MUSCULOSKELETAL: Osteoarthritic changes both hands VITALS/I&O VITALS/I&O: Vital Signs Date Time Temp Pulse Resp B/P (MAP) Pulse Ox O2 Delivery O2 Flow Rate FiO2 12/24/20 11:00 98.4 61 18 116/76 (89) 96 Room Air 98.4 I & O 12/23/20 12/23/20 12/24/20 15:00 23:00 07:00 Intake Total 1000 ml Balance 1000 ml LABS Lab: Laboratory Tests Test 12/23/20 16:40 12/23/20 21:09 12/24/20 06:20 White Blood Count 13.4 x10^3/uL (4.0-11.0) H 8.4 x10^3/uL (4.0-11.0) Red Blood Count 4.42 x10^6/uL (4.30-5.70) 4.24 x10^6/uL (4.30-5.70) L Hemoglobin 13.4 g/dL (13.0-17.5) 12.6 g/dL (13.0-17.5) L Hematocrit 39.3 % (39.0-53.0) 37.7 % (39.0-53.0) L Mean Corpuscular Volume 89 fL (79-100) 89 fL (79-100) Mean Corpuscular Hemoglobin 30 pg (25-35) 30 pg (25-35) Mean Corpuscular Hemoglobin Concent 34 g/dL (31-37) 33 g/dL (31-37) Red Cell Distribution Width 13.5 % (11.5-14.5) 13.5 % (11.5-14.5) Platelet Count 175 x10^3/uL (140-400) 148 x10^3/uL (140-400) Neutrophils (%) (Auto) 74 % (31-73) H 63 % (31-73) Lymphocytes (%) (Auto) 13 % (24-48) L 23 % (24-48) L Monocytes (%) (Auto) 11 % (0-9) H 11 % (0-9) H Eosinophils (%) (Auto) 1 % (0-3) 2 % (0-3) Basophils (%) (Auto) 1 % (0-3) 1 % (0-3) Neutrophils # (Auto) 9.9 x10^3/uL (1.8-7.7) H 5.3 x10^3/uL (1.8-7.7) Lymphocytes # (Auto) 1.7 x10^3/uL (1.0-4.8) 1.9 x10^3/uL (1.0-4.8) Monocytes # (Auto) 1.4 x10^3/uL (0.0-1.1) H 1.0 x10^3/uL (0.0-1.1) Eosinophils # (Auto) 0.2 x10^3/uL (0.0-0.7) 0.2 x10^3/uL (0.0-0.7) Basophils # (Auto) 0.2 x10^3/uL (0.0-0.2) 0.0 x10^3/uL (0.0-0.2) Sodium Level 139 mmol/L (136-145) 138 mmol/L (136-145) Potassium Level 4.7 mmol/L (3.5-5.1) 4.2 mmol/L (3.5-5.1) Chloride Level 105 mmol/L (98-107) 106 mmol/L (98-107) Carbon Dioxide Level 25 mmol/L (21-32) 24 mmol/L (21-32) Anion Gap 9 (6-14) 8 (6-14) Blood Urea Nitrogen 27 mg/dL (8-26) H 24 mg/dL (8-26) Creatinine 1.8 mg/dL (0.7-1.3) H 1.6 mg/dL (0.7-1.3) H Estimated GFR (Cockcroft-Gault) 36.8 42.1 BUN/Creatinine Ratio 15 (6-20) 15 (6-20) Glucose Level 93 mg/dL (70-99) 79 mg/dL (70-99) Calcium Level 9.3 mg/dL (8.5-10.1) 8.3 mg/dL (8.5-10.1) L Magnesium Level 2.1 mg/dL (1.8-2.4) Total Bilirubin 0.5 mg/dL (0.2-1.0) 0.7 mg/dL (0.2-1.0) Aspartate Amino Transferase (AST) 22 U/L (15-37) 17 U/L (15-37) Alanine Aminotransferase (ALT) 21 U/L (16-63) 15 U/L (16-63) L Alkaline Phosphatase 50 U/L (46-116) 43 U/L (46-116) L Total Protein 7.1 g/dL (6.4-8.2) 6.1 g/dL (6.4-8.2) L Albumin 3.3 g/dL (3.4-5.0) L 2.7 g/dL (3.4-5.0) L Albumin/Globulin Ratio 0.9 (1.0-1.7) L 0.8 (1.0-1.7) L Lipase 157 U/L (73-393) Troponin I Quantitative < 0.017 ng/mL (0.000-0.055) Laboratory Tests 12/23/20 16:40 12/24/20 06:20 Laboratory Tests 12/23/20 16:40 12/24/20 06:20 ASSESSMENT/PLAN ASSESSMENT/PLAN 1. Abdominal pain: enteritis/ileitis GS following 2. PAFIB: SR per EKG 3. PPM in situ/SSS: [place]. Interrogation revealed normal function. DDDR. 1.8% AFIB burden, no AFIB since a month ago. 7 yrs battery life 4. CAD: past CABG, clinically stable 5. Situs inversus 6. Chronic diastolic CHF: compensated 7. HLP 8. WENDI and suspect CKD3: Cr improved 9. Recent covid-19: 11/21/2020 Recommendations 1. Being advanced to CL diet. Lopressor x1. If able to tolerate diet advancement then may resume sotalol. QTc 420, otherwise lopressor IV 2. Currently on lovenox, resume home eliquis upon DC 3. Secondary prevention measure once able to take PO 4. No recent echo, if so then will obtain as an outpt MIQUEL ROLLE MD 12/24/20 1734: CARDIAC CONSULT ASSESSMENT/PLAN ASSESSMENT/PLAN Patient seen and examined. Agree with above nurse practitioner note. Supportive care. ADNNI ESCOBAR APRN Dec 24, 2020 12:55 MIQUEL ROLLE MD Dec 24, 2020 17:34
[2020-12-24 15:00] VITALS: BP 138/83
[2020-12-24 19:20] VITALS: BP 126/72
[2020-12-24] MEDS: SOTALOL 80 MG TABLET. PO SCH (21:28)
[2020-12-24 23:12] VITALS: BP 138/80
[2020-12-25 03:03] VITALS: BP 156/81
[2020-12-25] MEDS: PIPERACILLIN/TAZOBACTAM 3.375 GM in IV NORMAL SALINE 50ML 50 ML IV SCH (05:27)
[2020-12-25 07:00] VITALS: BP 139/77
--- NOTE | 2020-12-25 07:49 | PDOC ---
[employer] PROGRESS NOTE Date of Service DOS: DATE: 12/25/20 TIME: 07:45 Chief Complaint Chief Complaint A/P: Abdominal pain -improved after bowel movement. Likely from ileus. Advance diet as tolerated. Terminal ileitis - on CT with WBC elevated, will place on antibiotics CAD s/p CABG - hold PO meds Situs inversus Cholelithiasis - stable GERD - IV PPI High Cholesterol - hold statin Hypertension - prn hydralazine h/o lymphoma s/p sx removal h/o multiple abd sx sam, vasomotor nephropathy - will hydrate SSS s/p PPM - h/o afib on eliquis and sotalol, prior echo with reduced EF as well. will consult cardiology for medication recommendations Recent COVID 19 - recovered. 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 He has associated LLQ tenderness 10 that is sharp and colicky not relieved by pepcid at home, only relieved by 2x 4mg IV morphine doses. No bleeding, did have a BM yesterday, none since and the stool was scant. He does note he and his were diagnosed with COVID 19 on 11/22/2020 and he just regained his appetite and was taken off quarantine 5 days ago. He notes he probably "overdid it", but his dinner last night was so good. CT abdomen performed and found with SBO vs ileus and terminal ileitis. WBC 13.4, Hb 13.4, troponin negative Admitted for further care 12/24: Patient seen and evaluated. History of multiple abdominal surgeries and SBO. Abdominal pain is improved after loose bowel movement last night. His diet has been advanced to clears, and will advance diet as tolerated. Will discontinue Zosyn for enteritis as long as patient's pain continues to improve. Discussed with RN. 12/25: Patient having bowel movements. Tolerating clear liquids, full liquids, and GI soft diet. Will discharge patient today. Greater than 30 minutes spent managing the discharge of this patient. Vitals/I&O Vitals/I&O: Vital Signs Date Time Temp Pulse Resp B/P (MAP) Pulse Ox O2 Delivery O2 Flow Rate FiO2 12/25/20 03:03 97.7 62 18 156/81 (106) 96 Room Air 97.7 I & O 12/24/20 12/24/20 12/25/20 15:00 23:00 07:00 Intake Total 100 ml 540 ml Balance 100 ml 540 ml Physical Exam General: Alert, Oriented X3, Cooperative, No acute distress Heart: Regular rate (no tele), Normal S1, Normal S2, No murmurs Lungs: Clear Abdomen: Soft, No tenderness Extremities: No cyanosis, No edema Skin: No breakdown, No significant lesion Assessment and Plan Assessmemt and Plan Problems Medical Problems: (1) Abdominal pain Status: Acute Comment Review of Relevant I have reviewed the following items mukul (where applicable) has been applied. Medications: Current Medications Medications (Trade) Dose Ordered Sig/Rosemary Route PRN Reason Start Time Stop Time Status Last Admin Dose Admin Metoprolol Tartrate (Lopressor Vial) 5 mg 1X ONCE IVP 12/24/20 12:30 12/24/20 12:31 DC 12/24/20 12:43 Sotalol HCl (Betapace) 80 mg BID PO 12/24/20 21:00 12/24/20 21:28 Justifications for Admission Other Justification CHUNG SCHULTE MD Dec 25, 2020 07:48
--- NOTE | 2020-12-25 09:08 | NUR ---
SW following. Discussed with RN, pt from home, room air, GI soft. Dr. Arshad plans to discharge pt home with self care if pt tolerates diet. RN advised no SW needs. SW will continue to follow.
[2020-12-25] MEDS: SOTALOL 80 MG TABLET. PO SCH (09:09)
--- NOTE | 2020-12-25 09:35 | PDOC ---
SURGICAL PROGRESS NOTE DATE: 12/25/20 TIME: 09:34 Subjective tolerating diet having loose stool sore abdomen where lovenox shots were given Vital Signs Vital Signs Date Time Temp Pulse Resp B/P (MAP) Pulse Ox O2 Delivery O2 Flow Rate FiO2 12/25/20 09:09 60 139/77 12/25/20 08:00 Room Air 12/25/20 07:00 97.7 16 96 97.7 I&O Intake and Output 12/25/20 07:00 Intake Total 640 ml Balance 640 ml Intake Oral 640 ml # Voids 8 General: Alert, Oriented X3, Cooperative Abdomen: Soft, Other (ecchymosis to RLQ at injection site ) Labs Laboratory Tests Test 12/23/20 16:40 12/23/20 21:09 12/24/20 06:20 White Blood Count 13.4 x10^3/uL (4.0-11.0) 8.4 x10^3/uL (4.0-11.0) Red Blood Count 4.42 x10^6/uL (4.30-5.70) 4.24 x10^6/uL (4.30-5.70) Hemoglobin 13.4 g/dL (13.0-17.5) 12.6 g/dL (13.0-17.5) Hematocrit 39.3 % (39.0-53.0) 37.7 % (39.0-53.0) Mean Corpuscular Volume 89 fL (79-100) 89 fL (79-100) Mean Corpuscular Hemoglobin 30 pg (25-35) 30 pg (25-35) Mean Corpuscular Hemoglobin Concent 34 g/dL (31-37) 33 g/dL (31-37) Red Cell Distribution Width 13.5 % (11.5-14.5) 13.5 % (11.5-14.5) Platelet Count 175 x10^3/uL (140-400) 148 x10^3/uL (140-400) Neutrophils (%) (Auto) 74 % (31-73) 63 % (31-73) Lymphocytes (%) (Auto) 13 % (24-48) 23 % (24-48) Monocytes (%) (Auto) 11 % (0-9) 11 % (0-9) Eosinophils (%) (Auto) 1 % (0-3) 2 % (0-3) Basophils (%) (Auto) 1 % (0-3) 1 % (0-3) Neutrophils # (Auto) 9.9 x10^3/uL (1.8-7.7) 5.3 x10^3/uL (1.8-7.7) Lymphocytes # (Auto) 1.7 x10^3/uL (1.0-4.8) 1.9 x10^3/uL (1.0-4.8) Monocytes # (Auto) 1.4 x10^3/uL (0.0-1.1) 1.0 x10^3/uL (0.0-1.1) Eosinophils # (Auto) 0.2 x10^3/uL (0.0-0.7) 0.2 x10^3/uL (0.0-0.7) Basophils # (Auto) 0.2 x10^3/uL (0.0-0.2) 0.0 x10^3/uL (0.0-0.2) Sodium Level 139 mmol/L (136-145) 138 mmol/L (136-145) Potassium Level 4.7 mmol/L (3.5-5.1) 4.2 mmol/L (3.5-5.1) Chloride Level 105 mmol/L (98-107) 106 mmol/L (98-107) Carbon Dioxide Level 25 mmol/L (21-32) 24 mmol/L (21-32) Anion Gap 9 (6-14) 8 (6-14) Blood Urea Nitrogen 27 mg/dL (8-26) 24 mg/dL (8-26) Creatinine 1.8 mg/dL (0.7-1.3) 1.6 mg/dL (0.7-1.3) Estimated GFR (Cockcroft-Gault) 36.8 42.1 BUN/Creatinine Ratio 15 (6-20) 15 (6-20) Glucose Level 93 mg/dL (70-99) 79 mg/dL (70-99) Calcium Level 9.3 mg/dL (8.5-10.1) 8.3 mg/dL (8.5-10.1) Magnesium Level 2.1 mg/dL (1.8-2.4) Total Bilirubin 0.5 mg/dL (0.2-1.0) 0.7 mg/dL (0.2-1.0) Aspartate Amino Transf (AST/SGOT) 22 U/L (15-37) 17 U/L (15-37) Alanine Aminotransferase (ALT/SGPT) 21 U/L (16-63) 15 U/L (16-63) Alkaline Phosphatase 50 U/L (46-116) 43 U/L (46-116) Total Protein 7.1 g/dL (6.4-8.2) 6.1 g/dL (6.4-8.2) Albumin 3.3 g/dL (3.4-5.0) 2.7 g/dL (3.4-5.0) Albumin/Globulin Ratio 0.9 (1.0-1.7) 0.8 (1.0-1.7) Lipase 157 U/L (73-393) Troponin I Quantitative < 0.017 ng/mL (0.000-0.055) Problem List Problems Medical Problems: (1) Abdominal pain Status: Acute Assessment/Plan doing well ok to dc Justicifation of Admission Dx: Justifications for Admission: Justification of Admission Dx: Yes SEEMA KHOURY APRN Dec 25, 2020 09:35
--- NOTE | 2020-12-25 09:40 | PDOC3 ---
Discharge Summary Visit Information Date of Admission: Dec 23, 2020 Date of Discharge: Dec 25, 2020 Final Diagnosis Problems Medical Problems: (1) Abdominal pain Status: Acute Brief Hospital Course Allergies Allergies Coded Allergies Type Severity Reaction Last Updated Verified meperidine HCl Allergy Intermediate 10/14/18 Yes sulfamethoxazole Allergy Intermediate 10/14/18 Yes trimethoprim Allergy Intermediate 10/14/18 Yes Vital Signs Vital Signs Date Time Temp Pulse Resp B/P (MAP) Pulse Ox O2 Delivery O2 Flow Rate FiO2 12/25/20 09:09 60 139/77 12/25/20 08:00 Room Air 12/25/20 07:00 97.7 16 96 97.7 Lab Results Laboratory Tests Test 12/23/20 16:40 12/23/20 21:09 12/24/20 06:20 White Blood Count 13.4 x10^3/uL (4.0-11.0) 8.4 x10^3/uL (4.0-11.0) Red Blood Count 4.42 x10^6/uL (4.30-5.70) 4.24 x10^6/uL (4.30-5.70) Hemoglobin 13.4 g/dL (13.0-17.5) 12.6 g/dL (13.0-17.5) Hematocrit 39.3 % (39.0-53.0) 37.7 % (39.0-53.0) Mean Corpuscular Volume 89 fL (79-100) 89 fL (79-100) Mean Corpuscular Hemoglobin 30 pg (25-35) 30 pg (25-35) Mean Corpuscular Hemoglobin Concent 34 g/dL (31-37) 33 g/dL (31-37) Red Cell Distribution Width 13.5 % (11.5-14.5) 13.5 % (11.5-14.5) Platelet Count 175 x10^3/uL (140-400) 148 x10^3/uL (140-400) Neutrophils (%) (Auto) 74 % (31-73) 63 % (31-73) Lymphocytes (%) (Auto) 13 % (24-48) 23 % (24-48) Monocytes (%) (Auto) 11 % (0-9) 11 % (0-9) Eosinophils (%) (Auto) 1 % (0-3) 2 % (0-3) Basophils (%) (Auto) 1 % (0-3) 1 % (0-3) Neutrophils # (Auto) 9.9 x10^3/uL (1.8-7.7) 5.3 x10^3/uL (1.8-7.7) Lymphocytes # (Auto) 1.7 x10^3/uL (1.0-4.8) 1.9 x10^3/uL (1.0-4.8) Monocytes # (Auto) 1.4 x10^3/uL (0.0-1.1) 1.0 x10^3/uL (0.0-1.1) Eosinophils # (Auto) 0.2 x10^3/uL (0.0-0.7) 0.2 x10^3/uL (0.0-0.7) Basophils # (Auto) 0.2 x10^3/uL (0.0-0.2) 0.0 x10^3/uL (0.0-0.2) Sodium Level 139 mmol/L (136-145) 138 mmol/L (136-145) Potassium Level 4.7 mmol/L (3.5-5.1) 4.2 mmol/L (3.5-5.1) Chloride Level 105 mmol/L (98-107) 106 mmol/L (98-107) Carbon Dioxide Level 25 mmol/L (21-32) 24 mmol/L (21-32) Anion Gap 9 (6-14) 8 (6-14) Blood Urea Nitrogen 27 mg/dL (8-26) 24 mg/dL (8-26) Creatinine 1.8 mg/dL (0.7-1.3) 1.6 mg/dL (0.7-1.3) Estimated GFR (Cockcroft-Gault) 36.8 42.1 BUN/Creatinine Ratio 15 (6-20) 15 (6-20) Glucose Level 93 mg/dL (70-99) 79 mg/dL (70-99) Calcium Level 9.3 mg/dL (8.5-10.1) 8.3 mg/dL (8.5-10.1) Magnesium Level 2.1 mg/dL (1.8-2.4) Total Bilirubin 0.5 mg/dL (0.2-1.0) 0.7 mg/dL (0.2-1.0) Aspartate Amino Transf (AST/SGOT) 22 U/L (15-37) 17 U/L (15-37) Alanine Aminotransferase (ALT/SGPT) 21 U/L (16-63) 15 U/L (16-63) Alkaline Phosphatase 50 U/L (46-116) 43 U/L (46-116) Total Protein 7.1 g/dL (6.4-8.2) 6.1 g/dL (6.4-8.2) Albumin 3.3 g/dL (3.4-5.0) 2.7 g/dL (3.4-5.0) Albumin/Globulin Ratio 0.9 (1.0-1.7) 0.8 (1.0-1.7) Lipase 157 U/L (73-393) Troponin I Quantitative < 0.017 ng/mL (0.000-0.055) Brief Hospital Course Mr. Mccullough is a 75 old male with past medical history situs inversus, who presented with ileus, terminal ileitis. Consultation was placed to general surgery. Patient was treated with empiric IV antibiotics, n.p.o. status, and bowel rest. His symptoms improved after large bowel movement. His diet was advanced as tolerated. Once tolerating regular diet he was stable for discharge home. Discharge Information Condition at Discharge: Improved Disposition/Orders: D/C to Home Scheduled Apixaban (Eliquis) 5 Mg Tablet, 5 MG PO BID for BLOOD THINNER, (Reported) Entered as Reported by: ANNIE RODRIGUEZ on 08/02/20304 Last Action: Reviewed on 12/24/2045 by PAOLA SELF Aspirin (Aspirin) 81 Mg Tab.chew, 1 TAB PO DAILY for [place] PREVENTION, #30 Ref 3 (Reported) Entered as Reported by: ANNIE RODRIGUEZ on 08/02/20304 Last Action: Reviewed on 12/24/2045 by PAOLA SELF Lovastatin (Lovastatin) 20 Mg Tablet, 20 MG PO HS, (Reported) Entered as Reported by: TAHIR MOERNO on 01/23/14 1304 Last Action: Reviewed on 12/24/2045 by PAOLA SELF Ranitidine Hcl (Ranitidine Hcl) 300 Mg Capsule, 300 MG PO BID, (Reported) Entered as Reported by: TAHIR MORENO on 01/23/14 1304 Last Action: Reviewed on 12/24/2045 by PAOLA SELF Sotalol Hcl (Betapace) 80 Mg Tablet, 80 MG PO BID, (Reported) Entered as Reported by: GAURAV SMALL on 11/01/15 1341 Last Action: Continued on 12/24/201726 by JONATHAN PRESLEY RN Scheduled PRN Acetaminophen (Acetaminophen) 325 Mg Tablet, 1 TAB PO PRN PRN for pain or fever for 30 Days, #30 Ref 0 (Reported) Entered as Reported by: PAOLA SELF on 12/24/2045 Last Action: New Order on 12/24/2045 by PAOLA SELF Justicifation of Admission Dx: Justifications for Admission: Justification of Admission Dx: Yes CHUNG SCHULTE MD Dec 25, 2020 09:39
[2020-12-25 11:00] VITALS: BP 139/69
--- NOTE | 2020-12-25 11:33 | NUR ---
Pt discharged home with self care. Discharge instructions discussed. Pt verbalized understanding. Pt stated he would make his own F/U appt with Dr. Clayton. IV removed. Pt ambulated to main entrance and was secured in car with friend.
== END 2020-12-25 11:37 | disposition home or self-care (01) | DRG 385 ==
LOC: ER 15:31 → 4 NORTH 19:30
PROVIDERS: ADMIT Internal Medicine; ATTEND Internal Medicine
DX: K50.012 Crohn's disease of small intestine with intestinal obstruction (principal); N17.0 Acute kidney failure with tubular necrosis; K56.7 Ileus, unspecified; I50.32 Chronic diastolic (congestive) heart failure; Q89.3 Situs inversus; E78.00 Pure hypercholesterolemia, unspecified; E78.5 Hyperlipidemia, unspecified; I11.0 Hypertensive heart disease with heart failure; I25.10 Atherosclerotic heart disease of native coronary artery without angina pectoris; I48.0 Paroxysmal atrial fibrillation; K21.9 Gastro-esophageal reflux disease without esophagitis; K43.9 Ventral hernia without obstruction or gangrene; K80.20 Calculus of gallbladder without cholecystitis without obstruction; Z79.01 Long term (current) use of anticoagulants; Z85.72 Personal history of non-Hodgkin lymphomas; Z87.891 Personal history of nicotine dependence; Z90.49 Acquired absence of other specified parts of digestive tract; Z95.0 Presence of cardiac pacemaker; Z95.1 Presence of aortocoronary bypass graft; M19.90 Unspecified osteoarthritis, unspecified site; Z20.822 Contact with and (suspected) exposure to COVID-19
CPT/HCPCS: 36415; 74176; 80053; 83690; 83735; 84484; 85025; 93005; 96361; 96374; 96375; 96376; 99285; J1650; J2270; J2405; J2543; J3490; J7030; Q9966; G0378

== ENCOUNTER 2021-06-16 22:03 | Emergency (ER) | payer MEDICARE ==
[~2021-06-16] VITALS: Ht 190.5 cm; Wt 110.4 kg
[~2021-06-16 22:03] MED LIST changes: +ACET325T21 PO
[2021-06-17 00:12] VITALS: BP 159/80
== END 2021-06-17 00:12 | disposition left against medical advice (07) ==
LOC: ER 22:03
DX: R10.9 Unspecified abdominal pain (principal); Z53.21 Procedure and treatment not carried out due to patient leaving prior to being seen by health care provider